=== PATIENT | male | born 1955 | race Caucasian/White ===

== ENCOUNTER 2022-02-24 08:11 | Emergency (ER) | payer MEDICARE, SELFPAY ==
[2022-02-24 08:18] VITALS: BP 143/90; PULSE 87; RESP 14; TEMP 36.6; O2SAT 95; BMI 33.9
--- NOTE | 2022-02-24 08:26 | XR_ITS ---
WS: [id number] Right ankle, 3 views, 02/24/2022 Clinical Data: fall Comparison: None. Findings: There is a bimalleolar fracture involving the medial and lateral malleolus. There is a lateral displa cement of the talus relative to the tibia. There is moderate soft tissue swelling over the malleolus. XR/XR ankle RT min 3V* [id number] Impression: Fractures of the medial and lateral malleolus of the right ankle.
--- NOTE | 2022-02-24 08:26 | XR_ITS ---
WS: [id number] Right leg including the tibia and fibula, AP and lateral views, 02/24/2022 Clinical Data: fall Comparison: None. Findings: There is a fracture of the distal right fibula. The right tibia is intact. The proximal right fibula is unremarkable. There is soft tissue swelling over the distal right fibular fracture. The visualized right knee is normal. XR/XR tibia fibula RT 2V [id number] Impression: Fracture distal right fibula.
--- NOTE | 2022-02-24 08:44 | W.ED.EXTPRO ---
HPI - Extremity Problem General: Chief complaint: Extremity Injury, Lower Stated complaint: fall,right leg pain Time Seen by Provider: 02/24/22 08:16 Source: patient Mode of arrival: wheelchair History of Present Illness: 67-year-old male presents emergency room after a fall at home he was walking his dog and slipped as he went down the stairs injury to the right ankle he has been able to be partial weightbearing since then he did not strike his head did not lose consciousness there is no other injuries reported. He does have some abrasions last tetanus shot was over 10 years ago MD Complaint: joint pain Onset (ago): minute(s) Pain Consistency: constant Location: right (Ankle) Quality: sharp Radiation: none Relieving factors: nothing Exacerbating factors: nothing Associated symptoms: Deny arthralgias, chest pain, fever(s), myalgias, rash or short of breath Review of Systems Const: Denies: fever(s), chills, fatigue or malaise ENMT: Denies: throat pain, ear or mastoid pain, nasal discharge or nasal congestion Card: Denies: chest pain Resp: Denies: dyspnea, productive cough, non-productive cough or wheezing GI: Denies: abdominal pain, nausea, vomiting, hematemesis, coffee ground emesis, diarrhea, constipation, bloating, hematochezia or melena : Denies: flank pain, dysuria, urinary frequency or urinary urgency Skin/Breast: Denies: rash PFSH ED PFSH: Medical History Diabetes Former smoker Hypertension Hypothyroidism Insomnia Surgical History H/O colonoscopy 2020 NORMAL Family History Brother , LIVER Cancer Mother Cancer OVARIAN Sister , LUNG METS TO BRAIN No problems noted. 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 Current gender identity: Male Physical Exam Const: COMMON NORMALS: no acute distress GENERAL APPEARANCE: cooperative and comfortable ORIENTATION/CONSCIOUSNESS: Yes awake, Yes oriented to person, Yes oriented to place and Yes oriented to time HENMT: COMMON NORMALS: normocephalic, atraumatic and hearing grossly normal bilaterally HEAD & SCALP: normocephalic and atraumatic Eye: COMMON NORMALS: Equal, round and reactive pupils present, EOMs intact bilaterally, conjunctivae normal and no scleral icterus CONJUNCTIVA: Yes conjunctivae normal PUPIL: Yes Equal, round and reactive pupils present Neck/C-Spine: COMMON NORMALS: full ROM Resp: COMMON NORMALS: normal respiratory effort, No retractions, No use of accessory muscles and clear to auscultation bilaterally AUSCULTATION: clear to auscultation bilaterally Cardio: COMMON NORMALS: regular rate, regular rhythm and No murmurs present (Cardio) RATE: regular rate RHYTHM: regular rhythm Extremity: OTHER: Abrasions on the right lower leg and ankle no full-thickness tears or lacerations. X-ray shows bimalleolar fracture and no evidence of compound fracture on clinical exam Neuro: SENSORIUM/ORIENTATION: Yes oriented to person, Yes oriented to place and Yes oriented to time Skin: COMMON NORMALS: no rashes or lesions noted GENERAL SKIN EXAM: no rashes or lesions noted Course Vital Signs: Vital signs: Vital Signs Temperature 97.8 F 02/24/22 08:18 Pulse Rate 87 02/24/22 08:18 Respiratory Rate 14 02/24/22 08:18 Blood Pressure 143/90 02/24/22 08:18 Pulse Oximetry 95 02/24/22 08:18 Oxygen Delivery Me thod 02/24/22 08:18 MDM - Extremity (Nontraumatic) Medical Decision Making Patient placed in a splint. He called Dr. Zavala who is on-call he advises to have the patient go directly to the orthopedic office and will see him there Medical Records I reviewed the patient's medical records. Lab Data I reviewed the patient's lab results. Radiology Impressions Ankle X-Ray 02/24/22 08:26 Impression: Fractures of the medial and lateral malleolus of the right ankle. Tibia/Fibula X-Ray 02/24/22 08:26 Impression: Fracture distal right fibula. Discharge Plan Discharge Patient Disposition: Home Clinical Impression: Bimalleolar avulsion fracture of right ankle Condition: Stable Prescriptions: New hydrocodone-acetaminophen 5-325 mg tablet 1 tab PO Q6H PRN (Reason: pain) Qty: 20 0RF No Action citalopram 40 mg tablet 60 mg PO DAILY glipizide 5 mg tablet 5 mg PO BID levothyroxine 75 mcg tablet 75 mcg PO DAILY pioglitazone 30 mg tablet 30 mg PO DAILY metoprolol tartrate 50 mg tablet 50 mg PO BID omeprazole 20 mg tablet,delayed release (DR/EC) 20 mg PO DAILY melatonin 10 mg capsule 10 mg PO .HS metformin 500 mg tablet extended release 24 hr 500 mg PO BID Qty: 60 3RF Discharge Orders: Discharge ED (Routine); Ordered 02/24/22 Ordered By: Blas Stewart Discharge Diet: Usual diet Discharge Activity: Limit activity as instructed Patient Instructions: Opioid Safety, Pain Management Activity Restrictions/Additional Instructions: You are seen today for ankle pain. You have a bimalleolar fracture of the right ankle. This will require attention from podiatry. Keep your right lower leg in the splint placed today until you are seen by podiatry. Nonweightbearing on the right leg and use crutches until released by podiatry. Elevate apply ice as needed for discomfort and use pain medication prescribed. Coding Level of Care Code ED Dump Motor Operator for Lucien Armstrong
[2022-02-24] MEDS: tetanus-dipt-pertussis 0.5 mL SDV IM (09:26)
--- NOTE | 2022-02-24 09:32 | PC.NURSE ---
Patient didn't want crutches. He stated that he had some at home.
== END 2022-02-24 10:25 | disposition home or self-care (01) ==
PROVIDERS: Emergency Provider Family Medicine
DX: S82.841A Displaced bimalleolar fracture of right lower leg, initial encounter for closed fracture (principal); E11.9 Type 2 diabetes mellitus without complications; Z79.84 Long term (current) use of oral hypoglycemic drugs; I10 Essential (primary) hypertension; Z87.891 Personal history of nicotine dependence; W10.8XXA Fall (on) (from) other stairs and steps, initial encounter; S82.831A Other fracture of upper and lower end of right fibula, initial encounter for closed fracture; Z23 Encounter for immunization
CPT/HCPCS: 29515; 73590; 73610; 90471; 90715; 99204; 99283

== ENCOUNTER 2022-03-02 07:58 | Day surgery (SDC) | payer MEDICARE, SELFPAY ==
[2022-03-01 14:59] VITALS: BMI 33.5
[2022-03-02] VITALS (14 sets, daily range): BP systolic 101–153; BP diastolic 69–118; PULSE 85–104; RESP 12–18; TEMP 37–37.2; O2SAT 90–100
[2022-03-02] MEDS: gabapentin 300 mg Capsule PO (08:40)
[2022-03-02] MEDS: CELEcoxib 200 mg Capsule 400 MG PO (08:40)
[2022-03-02 08:48] LABS: Glucose Point of Care 351 mg/dL (70-110)
[2022-03-02] MEDS: sodium chloride 0.9% 1,000 ML 30 ML IV (08:52)
[2022-03-02] MEDS: insulin regular-human 100 units/1 mL 10 UNIT IVP (09:06)
--- NOTE | 2022-03-02 09:23 | ANES.PREANE2 ---
Pre-Anesthetic Assessment Height/Weight: Height 1.73 m Weight 100.244 kg Temp Pulse Resp BP Pulse Ox O2 Del Method 98.6 F 94 14 153/118 91 03/02/22 08:35 03/02/22 08:35 03/02/22 08:35 03/02/22 08:35 03/02/22 08:35 03/02/22 08:35 Preop Diagnosis: Right ankle bimalleolar fracture Operation Date: 03/02/22 10:25 Proposed Procedures p Right bimalleolar ankle fracture ORIF CPT 64689 S82.841A(Right) - Demarcus Negron DPM Familial anesthetic complications: None Was Beta Connor taken within 24 hours: N/A Was Clonidine taken within 24 hours: N/A Last intake: Intake Last Liquid Date 03/01/22 Last Liquid Time 23:00 Last Solid Date 03/01/22 Last Solid Time 18:00 Social No alcohol and No tobacco Exam alert, oriented x 3, clear to auscultation bilaterally and regular rate & rhythm Airway Mallampati: Class III Dentition: full CV/HEM Hypertension GI Gastroesophageal Reflux Disease Metabolic Diabetes Mellitus and Thyroid Disease Anesthetic Plan ASA status: 3 Anesthesia: General and Regional (specify below) Risk of > 500 ml blood loss (7ml/kg in children): No Medications/Allergies Home Medications Medication Instructions Recorded Confirmed Last Taken Type citalopram 40 mg tablet 60 mg PO DAILY 02/16/22 03/02/22 03/01/22 History glipizide 5 mg tablet 5 mg PO BID 02/16/22 03/02/22 03/01/22 History levothyroxine 75 mcg tablet 75 mcg PO DAILY 02/16/22 03/02/22 03/01/22 History melatonin 10 mg capsule 10 mg PO .HS 02/16/22 03/02/22 03/01/22 History metformin 500 mg tablet,extended 500 mg PO BID #60 tabs 02/16/22 03/02/22 03/01/22 08:00 Rx release 24 hr metoprolol tartrate 50 mg tablet 50 mg PO BID 02/16/22 03/02/22 03/01/22 History omeprazole 20 mg tablet,delayed 20 mg PO DAILY 02/16/22 03/02/22 03/01/22 History release pioglitazone 30 mg tablet 30 mg PO DAILY 02/16/22 03/02/2222 History hydrocodone 5 mg-acetaminophen 325 1 tab PO Q6H PRN pain #20 tabs 02/24/22 03/02/22 03/01/22 Rx mg tablet hydrocodone 5 mg-acetaminophen 325 1 tab PO Q6H PRN pain 7 days #28 03/02/22 Unknown Rx mg tablet tabs Allergies Allergy/AdvReac Type Severity Reaction Status Date / Time codeine Allergy ADR-Abdominal Verified 03/02/22 08:30 Pain Current Medications Generic Name Dose Route Start Last Admin Trade Name Freq PRN Reason Stop Dose Admin Sodium Chloride 1,000 mls @ 30 mls/hr 03/02/22 08:15 03/02/22 08:52 Sodium Chloride 0.9% IV 03/03/22 08:14 30 mls/hr .Q24H DAFNE Administration PFSH Anesthesia Medical History Diabetes Former smoker Hypertension Hypothyroidism Insomnia Surgical History H/O colonoscopy 2020 NORMAL Family History Brother , LIVER Cancer Mother Cancer OVARIAN Sister , LUNG METS TO BRAIN No problems noted. 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
--- NOTE | 2022-03-02 09:24 | ANES.PROC ---
Anesthesia Procedures Procedure/Date: 03/02/22 Nerve Block ^: Nerve Block 1: Main Anesthesia: general anesthesia Time Out Performed: Yes Consent: requested by attending/covering physician, from patient, from other, risks and benefits reviewed and patient agrees to proceed Nerve block location: adductor canal (R) and popliteal (R) Anesthesia monitors applied: pulse oximetry, EKG, BP cuff and oxygen Nerve block position: supine Anesthetic Used: ropivicaine 0.5% (30 ml (20 ml popliteal, 10 ml adductor)) and with decadron (4 mg (3 mg popliteal, 1 mg adductor)) Ultrasound used to: recognize landmarks and visualize and ID femerol nerve Nerve Stimulator Used?: No Interscalene/Femoral BLK: 4 stimuplex 21 g needle used for position and inplane approach, visualize local anesthetic spread and no vascular puncture identified Injection: neg aspiration of heme Patient Tolerated Procedure: well Complications: none
[2022-03-02 10:15] LABS: Glucose Point of Care 230 mg/dL (70-110)
--- NOTE | 2022-03-02 10:33 | W.PM.OPSUD ---
Surgery/Procedure H&P Update DATE OF PROCEDURE: March 02, 2022 DATE H&P PERFORMED: 02/24/22 CHANGES TO PREVIOUS DOCUMENTATION: no changes PREOP DIAGNOSIS: Right ankle bimalleolar fracture PLANNED PROCEDURE: Operation Date: 03/02/22 10:25 Proposed Procedures p Right bimalleolar ankle fracture ORIF CPT 48318 S82.841A(Right) - Demarcus Negron DPM
[2022-03-02] MEDS: insulin regular-human 100 units/1 mL 5 UNIT IVP ×2 (10:35→12:40)
[2022-03-02] MEDS: ceFAZolin 2,000 MG in sodium chloride 0.9% (plus) 50 ML 100 MG IV (10:38)
--- NOTE | 2022-03-02 12:22 | P.OP_ITS ---
Operative Report Date of procedure: March 02, 2022 Pre-op diagnosis: Preop Diagnosis Right ankle bimalleolar fracture Post-op diagnosis: Same Post-op findings: Right ankle bimalleolar ankle fracture with Guerrier B and Briggs C with syndesmosis intact postoperatively Procedure done: ORIF right ankle bimalleolar fracture CPT 81470 Implants: Anatomical fibular plate with corresponding locking 3.5 mm locking screws, 1 nonlocking 3.5 millimeter screw two 4.0 cannulated short thread headed screws from [employer] Surgeon: Dr. Demarcus Negron, D.P.MShelley Estimated blood loss: Less than 20 cc 72 minutes Complications: None Findings: See above Procedure: Patient is a 67-year-old male that has a history of right ankle bimalleolar fracture. The extent of the injury requires open reduction internal fixation and this discussion was had with the patient. A lengthy discussion regarding the procedure, including risks and complications has been had with the patient and is noted in the recent clinic note. Written and verbal consent have been obtained. All patient questions have been answered to the patient?s satisfact ion. No written or verbal guarantees have been given or implied. The patient has been NPO since midnight. The history has been reviewed and the history and physical is current. The signed consent was confirmed and placed in the patient chart. Patient imaging has been reviewed and is consistent with the diagnosis. Under mild sedation, the patient was brought into the operating room and placed on the table in the supine position. IV antibiotics were given by the anesthesia team as preoperative surgical prophylaxis. General sedation was then performed by the anesthesiateam. A popliteal block was performed by the anesthesia team preoperatively. A pneumatic tourniquet was then placed about the right thigh. The operative extremity was then prepped and draped in the usual fashion. The extremity was then elevated and exsanguinated before the tourniquet was inflated to 300 mmHg. After inflation, the following procedure was then performed. Attention was directed to the lateral aspect of the right ankle where a 10 cm incision was made directly over the fibula. Dissection was carried down through subcutaneous and superficial fascia to the level of the fibula. Dissection was carried out to expose the oblique fracture through the fibula at the level of the ankle joint. A curette and dental pick was used to evacuate hematoma from the fracture line. Next, a drihy-uj-xjtjo reduction clamp was used to reduce the ankle fracture. This positioning was confirmed on C-arm imaging. Next a drill for 3.5 solid headed screw was used to drill the interfrag screw. A 3.5 headed screw was then inserted across the fracture line. Good positioning of the screw was noted on C-arm imaging as well as clinically. Next an anatomical fibular plate was placed on the lateral aspect of the fibula. Good positioning of the plate was noted. It was then fixated to the fibula using 3.5 locking screws Attention was then directed to the medial malleolus where an 8 cm incision was made over the medial malleolus. Dissection was carried out the subcutaneous superficial fascia to the level of the medial malleolus fracture. The hematoma of the fracture line was evacuated using curette and dental pick. Next, the medial malleolus was reduced using a fghah-nh-bruqw reduction clamp. 2 guidewires for 4.0 cannulated screws were inserted across the fracture line before two 4.0 x 40 mm short threaded cannulated headed screws were inserted over the wire and across fracture site. Good positioning of the screws and plates were noted on C-arm imaging. Good reduction of the lateral medial malleolus fractures was noted. Attention was then directed to closure. Deep tissue was closed with 2-0 Vicryl followed by subcuticular closure with 3-0 Vicryl and skin closure with skin jarrell. Incisions were dressed with Xeroform, 4 x 4 gauze, Kerlix before being placed in a well-padded below the knee posterior splint. The tourniquet was let down good hyperemic response was noted to all digits of the right foot. The patient tolerated the procedure and anesthesia well and without complication. The patient was transported from the operating room to the recovery room with vital signs stable and vascular status intact to all digits of the right foot. The patient was given both written and verbal instructions to remain nonweightbearing to the operative extremity, to keep dressings/splint clean, dry and intact and to take pain medication as directed. The patient will follow-up in the outpatient setting at their scheduled appointment. The patient was discharged with my personal number and was instructed to call if any questions or issues should arise. They were discharged home once anesthesia criteria was met.
--- NOTE | 2022-03-02 12:28 | XRR_ITS ---
PROCEDURE INFORMATION: Exam: XR Right Ankle Exam date and time: 03/02/2022 12:35 PM Age: 67 years old Clinical indication: Device placement; Joint fixation hardware; Prior surgery; Surgery date: Post-operative (0-2 days); Additional info: Post op, 3 views right ankle portable for post op. Thank you TECHNIQUE: Imaging protocol: Radiologic exam of the Right ankle. Views: 3 or more views. COMPARISON: CR XR ankle RT min 3V* [id number] 02/24/2022 8:40 AM FINDINGS: Bones/joints: Patient has undergone ORIF of bimalleolar fracture. Fracture of the distal fibula stabilized by cortical plate and multiple threaded screws while the medial malleolar fracture stabilized by 2 cancellous screws. Fracture components appear in good alignment and apposition. Remainder of visualized osseous structures are unremarkable but obscured by overlying plaster cast. Soft tissues: Unremarkable. XR/XR ankle RT min 3V* [id number] IMPRESSION: Internally fixed fractures of the distal fibula and medial malleolus in good alignment.
--- NOTE | 2022-03-02 12:28 | SUR.PHASEI ---
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 1225 ORDER FOR IV INSULIN PLACED. PT STILL RESTING QUIETLY VSS. ID BRACELET TO LT WRIST , PT ID'D WITH 2 IDENTIFIERS.
[2022-03-02 12:31] LABS: Glucose Point of Care 203 mg/dL (70-110)
[2022-03-02 12:31] LABS: Glucose Point of Care 236 mg/dL (70-110)
--- NOTE | 2022-03-02 12:46 | SUR.PHASEI ---
SEE REGULAR HUMAN INSULIN 5 UNITS GIVEN IVP ORDERED, IV FLUSHED WELL , PT AWAKES TO TOUCH, OPENS EYES BUT DOES NOT VERBALIZE, VSS MONITOR UNCHNAGED PT ON RA TRIAL, DRESSINGS TO RT FOOT UNCHANGED.
[2022-03-02 13:38] LABS: Glucose Point of Care 214 mg/dL (70-110)
--- NOTE | 2022-03-02 14:14 | ANE.PACU2 ---
Inpatient post-anesthesia follow up: Airway intact: Yes Vital signs: Temperature 98.8 F Pulse Rate 104 Respiratory Rate 16 Blood Pressure 115/76 Pulse Oximetry 92 Oxygen Delivery Me thod Room Air Oxygen Flow Rate 8 Fraction of Inspir ed Oxygen Hydration adequate: Yes Nausea and vomiting: No Pain level: 1 Mental status: Baseline
== END 2022-03-02 13:55 | disposition home or self-care (01) ==
PROVIDERS: PCP Family Medicine; Visit Provider Podiatrist Foot & Ankle Surgery
PROC: (CPT 27814; principal; 2022-03-02 10:25)
DX: S82.841A Displaced bimalleolar fracture of right lower leg, initial encounter for closed fracture (principal); X58.XXXA Exposure to other specified factors, initial encounter; K21.9 Gastro-esophageal reflux disease without esophagitis; E11.9 Type 2 diabetes mellitus without complications; Z87.891 Personal history of nicotine dependence; I10 Essential (primary) hypertension; E03.9 Hypothyroidism, unspecified
CPT/HCPCS: 27814; 36416; 73610; 76000; 82962; C1713; J0690; J1100; J1815; J2250; J2405; J2704; J2795; J3010; J7030

== ENCOUNTER → 2022-03-17 08:03 | Outpatient (BNVA) | payer MEDICARE, SELFPAY | PROVIDERS: PCP Family Medicine; Visit Provider Podiatrist Foot & Ankle Surgery | DX: Z98.890 Other specified postprocedural states (principal); S82.841A Displaced bimalleolar fracture of right lower leg, initial encounter for closed fracture; X58.XXXA Exposure to other specified factors, initial encounter; E11.9 Type 2 diabetes mellitus without complications | CPT/HCPCS: 73610; 99024 ==

== ENCOUNTER 2022-03-31 06:00 | Outpatient (CLI) | payer MEDICARE, SELFPAY | END 2022-03-31 06:01 | LOC: SPT 04-11 15:49 | PROVIDERS: PCP Family Medicine; Visit Provider Podiatrist Foot & Ankle Surgery | DX: Z98.890 Other specified postprocedural states (principal); S82.841A Displaced bimalleolar fracture of right lower leg, initial encounter for closed fracture; X58.XXXA Exposure to other specified factors, initial encounter; E11.9 Type 2 diabetes mellitus without complications; Z79.84 Long term (current) use of oral hypoglycemic drugs | CPT/HCPCS: 97760; 99024; L4361 ==

== ENCOUNTER → 2022-03-31 13:46 | Outpatient (BNVA) | payer MEDICARE, SELFPAY | PROVIDERS: PCP Family Medicine; Visit Provider Podiatrist Foot & Ankle Surgery | DX: Z98.890 Other specified postprocedural states (principal); S82.841A Displaced bimalleolar fracture of right lower leg, initial encounter for closed fracture; X58.XXXA Exposure to other specified factors, initial encounter; E11.9 Type 2 diabetes mellitus without complications; Z79.84 Long term (current) use of oral hypoglycemic drugs | CPT/HCPCS: 73610 ==

== ENCOUNTER → 2022-04-04 12:19 | Outpatient (BNVA) | payer MEDICARE, SELFPAY | PROVIDERS: PCP Family Medicine; Visit Provider Family Medicine | DX: I10 Essential (primary) hypertension (principal); E11.9 Type 2 diabetes mellitus without complications; E03.9 Hypothyroidism, unspecified; G47.00 Insomnia, unspecified | CPT/HCPCS: 80053; 80061; 83036; 84443; 85025 ==

== ENCOUNTER → 2022-04-14 13:44 | Outpatient (BNVA) | payer MEDICARE, SELFPAY | PROVIDERS: PCP Family Medicine; Visit Provider Podiatrist Foot & Ankle Surgery | DX: Z98.890 Other specified postprocedural states (principal); S82.841A Displaced bimalleolar fracture of right lower leg, initial encounter for closed fracture; X58.XXXA Exposure to other specified factors, initial encounter; E11.9 Type 2 diabetes mellitus without complications; Z79.84 Long term (current) use of oral hypoglycemic drugs | CPT/HCPCS: 73610; 99024 ==

== ENCOUNTER → 2022-05-05 13:11 | Outpatient (BNVA) | payer MEDICARE, SELFPAY | PROVIDERS: PCP Family Medicine; Visit Provider Podiatrist Foot & Ankle Surgery | DX: Z98.890 Other specified postprocedural states; E11.9 Type 2 diabetes mellitus without complications; Z79.84 Long term (current) use of oral hypoglycemic drugs; X58.XXXA Exposure to other specified factors, initial encounter; S82.841A Displaced bimalleolar fracture of right lower leg, initial encounter for closed fracture | CPT/HCPCS: 73610; 99024 ==

== ENCOUNTER 2022-05-17 06:00 | Outpatient (RCR) | payer MEDICARE, SELFPAY | END 2022-06-16 23:59 | disposition home or self-care (01) | LOC: TPT 06:00 | PROVIDERS: PCP Family Medicine; Visit Provider Podiatrist Foot & Ankle Surgery | DX: S82.844D Nondisplaced bimalleolar fracture of right lower leg, subsequent encounter for closed fracture with routine healing (principal); X58.XXXD Exposure to other specified factors, subsequent encounter | CPT/HCPCS: 97110; 97140; 97162 ==

== ENCOUNTER 2022-05-17 15:57 | Inpatient (IN) | payer MEDICARE, SELFPAY ==
[2022-05-17] VITALS (15 sets, daily range): BP systolic 149–178; BP diastolic 84–119; PULSE 70–89; RESP 17–25; TEMP 36.6–36.9; O2SAT 81–99; BMI 37.7
--- NOTE | 2022-05-17 16:09 | ECG_ITS ---
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 Measurements Intervals Hillman Rate: 78 P: 57 ND: 168 QRS: 4 QRSD: 85 T: 26 QT: 381 QTc: 436 Interpretive Statements SINUS RHYTHM POSSIBLE LEFT ATRIAL ENLARGEMENT [-0.1mV P-WAVE IN V1/V2] LOW QRS VOLTAGE IN PRECORDIAL LEADS [QRS DEFLECTION < 1.0 mV IN CHEST LEADS] No previous ECG available for comparison Electronically Signed On 05-17-2022 16:15:20 UX CONSULTANT by Neil David M.D. [id number]
--- NOTE | 2022-05-17 16:14 | W.ED.SOB ---
HPI - SOB/Dyspnea General: Chief Complaint: Shortness of Breath/Dyspnea Stated Complaint: SOB, Swelling all over Time Seen by Provider: 05/17/22 16:14 History of Present Illness: HPI Narrative: Mr Petty is a 67-year-old gentleman with history of hypertension, diabetes, thyroid disorder presenting to the emergency department for concern over shortness of breath and volume overload. He reports a few week history now of marked progression of lower extremity and central edema as well as dyspnea with dyspnea on exertion. Patient denies underlying lung disease and has no baseline oxygen requirement however he is hypoxemic in the mid 70s after desatting from mid 80s with exertion. Intensity symptoms is moderate to severe. No other specific changes in health, exacerbating, or alleviating factors identified. Onset (ago): week(s) Timing: progressively worsening Severity: severe Exacerbating factors: exertion Relieving factors: nothing Associated symptoms: Reports orthopnea and other Review of Systems General: Reports: 10 or more systems reviewed and unremarkable except in HPI and below Card: Reports: orthopnea PFSH ED PFSH: Medical History Diabetes Former smoker Hypertension Hypothyroidism Insomnia Surgical History H/O colonoscopy 2020 NORMAL Family History Brother , LIVER Cancer Mother Cancer OVARIAN Sister , LUNG METS TO BRAIN No problems noted. 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 Current gender identity: Male Physical Exam Const: COMMON NORMALS: alert GENERAL APPEARANCE: cooperative and well developed HENMT: COMMON NORMALS: normocephalic and atraumatic HEAD & SCALP: normocephalic and atraumatic THROAT: posterior oropharynx normal Eye: COMMON NORMALS: conjunctivae normal CONJUNCTIVA: Yes conjunctivae normal SCLERA: sclerae normal Neck/C-Spine: COMMON NORMALS: supple GENERAL: Yes trachea midline Resp: EFFORT & INSPECTION: Yes tachypneic AUSCULTATION: crackles Cardio: COMMON NORMALS: regular rate and regular rhythm RATE: regular rate RHYTHM: regular rhythm GI: COMMON NORMALS: Soft to palpation PALPATION: Yes Soft to palpation, Yes Tenderness to palpation present (GI), No Guarding due to palpation present (GI) and No Rigid due to palpation PERCUSSION: normal to percussion Extremity: GENERAL: Yes normal exam except as noted and Yes edema Neuro: COMMON NORMALS: moves all extremities SENSORIUM/ORIENTATION: Yes alert and No Orientation impaired Psych: COMMON NORMALS: mental status grossly normal and Normal thought process present THOUGHT PROCESS: Normal thought process present Course Vital Signs: Vital signs: Vital Signs Temperature 97.5 F L 05/20/22 15:14 Pulse Rate 66 05/20/22 15:14 Respiratory Rate 15 05/20/22 15:14 Blood Pressure 107/68 05/20/22 15:14 Pulse Oximetry 92 05/20/22 15:14 Oxygen Delivery Me thod 05/20/22 08:00 Oxygen Flow Rate 3 05/20/22 13:20 MDM - SOB/Dyspnea Medical Decision Making 67-year-old gentleman presenting with hypoxemia on room air and evidence of volume overload. EKG notable for sinus rhythm with normal axis and intervals, nonspecific ST segment abnormalities, no STEMI. Labs with no leukocytosis, mild thrombocytopenia. Metabolic panel with hypercapnic respiratory failure. No significant electrolyte derangement. Negative range 2-hour delta troponin. Negative viral panel. Chest x-ray with no lobar consolidation or pneumothorax. Given unimpressive appearance with clinical exam CT imaging is appropriate. CT demonstrates trace pleural effusion and pericardial effusion. There is subcutaneous edema. Incidental findings noted. Most likely etiology of symptoms is heart failure with acute respiratory failure with hypoxia and hypercapnia. The results of ED evaluation were discussed with the patient including plan for admission due to requirement for level of care not available if discharged to prevent significant worsening/deterioration. Patient agreeable with plan. Discussed with hospitalist service who was agreeable to admit patient. Medical Records I reviewed the patient's medical records. Lab Data I reviewed the patient's lab results. 05/17/22 16:28 05/17/22 16:28 Labs/Radiology: Radiology Impressions Chest X-Ray 05/17/22 16:24 IMPRESSION: No acute findings. Chest/Abdomen/Pelvis CT 05/17/22 17:22 IMPRESSION: 1. Trace left pleural effusion with atelectasis at the posterior left lung base. 2. Trace pericardial effusion. IMPRESSION: 1. No acute intra-abdominal findings. 2. Subcutaneous edema noted in the bilateral flank regions. 3. Additional findings described in the body of the report. COMMENTS: Consistent with the [employer]'s Incidental Findings Committee white paper (J Am Marian Radiol 2018): Any incidental renal lesion less than 1 cm or classified as too small to characterize, or any incidental cystic renal lesion characterized as simple-appearing, is likely benign. No follow-up imaging is recommended for these lesions per consensus recommendations based on imaging criteria. Laboratory Results WBC 4.1 10^3/uL (4.0-10.0) 05/17/22 16:28 RBC 5.55 10^6/uL (4.1-5.3) H 05/17/22 16:28 Hgb 15.6 g/dL (11.7-16.6) 05/17/22 16:28 Hct 50.4 % (42.0-52.0) 05/17/22 16:28 MCV 90.8 fl (80-94) 05/17/22 16:28 MCH 28.1 pg (28.0-34.0) 05/17/22 16:28 MCHC 31.0 g/dL (30.0-36.0) 05/17/22 16:28 RDW 14.0 % (12.1-15.1) 05/17/22 16:28 Plt Count 125 10^3/cmm (130-400) L 05/17/22 16:28 MPV 12.0 fL (7.4-10.4) H 05/17/22 16:28 Neut % (Auto) 64.6 % 05/17/22 16:28 Lymph % (Auto) 19.8 % 05/17/22 16:28 Mills % (Auto) 10.0 % 05/17/22 16:28 Eos % (Auto) 4.6 % 05/17/22 16:28 Baso % (Auto) 0.5 % 05/17/22 16:28 Neut # (Auto) 2.64 10^3/uL (1.8-7.7) 05/17/22 16:28 Lymph # (Auto) 0.8 10^3/uL (0.8-4.8) 05/17/22 16:28 Mills # (Auto) 0.4 10^3/uL (0.2-0.9) 05/17/22 16:28 Eos # (Auto) 0.2 10^3/uL (0.0-0.8) 05/17/22 16:28 Baso # (Auto) 0.0 10^3/uL (0.0-0.1) 05/17/22 16:28 Nucleated RBC % (auto) 0 % 05/17/22 16:28 Nucleated RBCs # 0.0 /100WBC 05/17/22 16:28 D-Dimer 0.77 ug/mIFEU (0-0.59) H 05/17/22 16:28 Specimen Type Arterial 05/17/22 17:21 Sample Site Radial, right 05/17/22 17:21 ABG pH 7.33 (7.35-7.45) L 05/17/22 17:21 ABG pCO2 68.5 mmHg (35-45) H* 05/17/22 17:21 ABG pO2 120.0 mmHg (80.0-100.0) H 05/17/22 17:21 ABG HCO3 35.8 mmol/L (22-26) H 05/17/22 17:21 ABG Base Excess 6.9 mmol/L (-2.0-2.0) H 05/17/22 17:21 Femi Test Pos 05/17/22 17:21 Hematocrit 46.9 % (42-52) 05/17/22 17:21 Hgb O2 Saturation 97.1 % (95-100) 05/17/22 17:21 Carboxyhemoglobin 1.8 %THgb (0.4-20.1) 05/17/22 17:21 Methemoglobin 0.3 % (0.4-1.5) L 05/17/22 17:21 Total Hemoglobin 15.3 g/dL (14-18) 05/17/22 17:21 O2 Delivery Device Nc 05/17/22 17:21 O2 Liters/Min 4.5 % 05/17/22 17:21 FiO2 42.0 % 05/17/22 17:21 Entry Level Account Executive ID Monro 05/17/22 17:21 Sodium 137 mmol/L (136-145) 05/17/22 16:28 Potassium 4.6 mmol/L (3.5-5.1) 05/17/22 16:28 Chloride 93 mmol/L (98-107) L 05/17/22 16:28 Carbon Dioxide 35 mmol/L (22-29) H 05/17/22 16:28 Anion Gap 13.6 (5-19) 05/17/22 16:28 BUN 14 mg/dL (8-23) 05/17/22 16:28 Creatinine 0.9 mg/dL (0.7-1.2) 05/17/22 16:28 GFR Calculation 83.9 mL/min (90-130) L 05/17/22 16:28 Glucose 264 mg/dL (65-115) H 05/17/22 16:28 Calculated Osmolality 294 mOsm/kg (285-295) 05/17/22 16:28 Lactic Acid 1.5 mmol/L (0.5-2.2) 05/17/22 16:28 Calcium 8.4 mg/dL (8.5-10.5) L 05/17/22 16:28 Magnesium 1.6 mg/dL (1.7-2.3) L 05/17/22 16:28 Total Bilirubin 0.7 mg/dL (0.15-1.2) 05/17/22 16:28 AST 22 U/L (0-40) 05/17/22 16:28 ALT 23 U/L (0-41) 05/17/22 16:28 Alkaline Phosphatase 52 U/L (40-130) 05/17/22 16:28 Troponin T Baseline 24 ng/L (0-15) H 05/17/22 16:28 Troponin T 120 Minute 21.44 ng/L (0-15) H 05/17/22 19:34 Delta Troponin T -2.56 ABS# (0-10) L 05/17/22 19:34 NT-Pro-B Natriuret Pep 1949 pg/mL (0-125) H 05/17/22 16:28 Total Protein 6.4 g/dL (6.6-8.7) L 05/17/22 16:28 Albumin 3.9 g/dL (3.5-5.2) 05/17/22 16:28 Globulin 2.5 g/dL (1.3-4.6) 05/17/22 16:28 TSH 3.85 uIU/mL (0.27-4.20) 05/17/22 16:28 Urine Color Yellow (Yellow) 05/17/22 18:15 Urine Appearance Clear (CLEAR) 05/17/22 18:15 Urine pH 6.5 (5-7) 05/17/22 18:15 Ur Specific Parker 1.015 (1.005-1.030) 05/17/22 18:15 Urine Protein Neg (Negative) 05/17/22 18:15 Urine Glucose (UA) 2+ (Normal) H 05/17/22 18:15 Urine Ketones 1+ (Negative) H 05/17/22 18:15 Urine Blood Neg (Negative) 05/17/22 18:15 Urine Nitrate Negative (Negative) 05/17/22 18:15 Urine Bilirubin Neg (Negative) 05/17/22 18:15 Urine Urobilinogen 4 mg/dL (Negative) H 05/17/22 18:15 Ur Leukocyte Esterase Negative (Negative) 05/17/22 18:15 Coronavirus 229E (PCR) Not detected (NOT DETECT) 05/17/22 16:38 SARS-CoV-2 (PCR) Not detected (NOT DETECT) 05/17/22 16:38 Discharge Plan Discharge Patient Disposition: Admitted As Inpatient Admit Provider: Kelvin Smith Clinical Impression: Acute respiratory failure with hypoxia and hypercapnia, Edema, peripheral, Symptom of congestive heart failure Condition: Stable Discharge Diet: Cardiac and Diabetic Discharge Activity: Increase activity as tolerated and Oxygen as instructed Coding Level of Care Code ED Poly Operator for Lucien Armstrong
--- NOTE | 2022-05-17 16:24 | XRR_ITS ---
PROCEDURE INFORMATION: Exam: XR Chest Exam date and time: 05/17/2022 4:39 PM Age: 67 years old Clinical indication: Shortness of breath; Additional info: SOB TECHNIQUE: Imaging protocol: Radiologic exam of the chest. Views: 1 view. COMPARISON: No relevant prior studies available. FINDINGS: Lungs: Unremarkable. No consolidation. Pleural spaces: Unremarkable. No pleural effusion. No pneumothorax. Heart/Mediastinum: Unremarkable. No cardiomegaly. Bones/joints: Unremarkable. XR/XR chest 1V portable [id number] IMPRESSION: No acute findings.
[2022-05-17 16:41] LABS: Basophils % 0.5 %; Eosinophils # 0.2 10^3/uL (0.0-0.8); Eosinophils % 4.6 %; Hematocrit 50.4 % (42.0-52.0); Hemoglobin 15.6 g/dL (11.7-16.6); Lymphocytes # 0.8 10^3/uL (0.8-4.8); Lymphocytes % 19.8 %; Mean Corpuscular Hemoglobin 28.1 pg (28.0-34.0); Mean Corpuscular Volume 90.8 fl (80-94); Monocytes # 0.4 10^3/uL (0.2-0.9); Neutrophils # 2.64 10^3/uL (1.8-7.7); Neutrophils % 64.6 %; Nucleated Red Blood Cells % 0 %; Platelet Count 125 10^3/cmm (130-400); Red Blood Count 5.55 10^6/uL (4.1-5.3); White Blood Count 4.1 10^3/uL (4.0-10.0)
[2022-05-17 17:01] LABS: Lactic Sepsis W/Reflex 1.5 mmol/L (0.5-2.2)
[2022-05-17 17:02] LABS: Alanine Aminotransferase 23 U/L (0-41); Albumin Level 3.9 g/dL (3.5-5.2); Alkaline Phosphatase 52 U/L (40-130); Aspartate Amino Transferase 22 U/L (0-40); Blood Urea Nitrogen 14 mg/dL (8-23); Calcium 8.4 mg/dL (8.5-10.5); Carbon Dioxide 35 mmol/L (22-29); Globulin 2.5 g/dL (1.3-4.6); Glomerular Filtration Rate 83.9 mL/min (90-130); Glucose 264 mg/dL (65-115); Magnesium 1.6 mg/dL (1.7-2.3); Total Bilirubin 0.7 mg/dL (0.15-1.2); Total Protein 6.4 g/dL (6.6-8.7)
[2022-05-17 17:19] LABS: D Dimer 0.77 ug/mIFEU (0-0.59)
[2022-05-17 17:20] LABS: Potassium 4.6 mmol/L (3.5-5.1)
--- NOTE | 2022-05-17 17:22 | CTR_ITS ---
PROCEDURE INFORMATION: Exam: CTA Chest With Contrast Exam date and time: 05/17/2022 7:49 PM Age: 67 years old Clinical indication: Bloating; Dyspnea; Additional info: New o2 req, volume overload, abd swelling TECHNIQUE: Imaging protocol: Computed tomographic angiography of the chest with contrast. 3D rendering (Not supervised by radiologist): MIP and/or 3D reconstructed images were created by the technologist. Radiation optimization: All CT scans at this facility use at least one of these dose optimization techniques: automated exposure control; mA and/or kV adjustment per patient size (includes targeted exams where dose is matched to clinical indication); or iterative reconstruction. Contrast material: OMNIPAQUE 350; Contrast volume: 95 ml; Contrast route: INTRAVENOUS (IV); REPORTING DATA: Count of CT and Cardiac NM exams in prior 12 months: This patient has received 0 known CTs and 0 known cardiac nuclear medicine studies in the 12 months prior to the current study. COMPARISON: CR XR chest 1V portable [id number] 05/17/2022 4:39 PM RADIATION DOSE METRICS: Total DLP (mGy-cm): 1761.88 FINDINGS: Pulmonary arteries: Normal. No pulmonary emboli. Aorta: No aortic aneurysm. No aortic dissection. Lungs: Atelectasis at the posterior left lung base. No consolidation. No masses. Pleural spaces: Trace left pleural effusion. No pneumothorax. Heart: No cardiomegaly. Trace pericardial effusion. Lymph nodes: No enlarged lymph nodes. Bones/joints: No acute fracture. Soft tissues: Unremarkable. PROCEDURE INFORMATION: Exam: CT Abdomen And Pelvis With Contrast Exam date and time: 05/17/2022 7:49 PM Age: 67 years old Clinical indication: Bloating; Dyspnea; Additional info: New o2 req, volume overload, abd swelling TECHNIQUE: Imaging protocol: Computed tomography of the abdomen and pelvis with contrast. Radiation optimization: All CT scans at this facility use at least one of these dose optimization techniques: automated exposure control; mA and/or kV adjustment per patient size (includes targeted exams where dose is matched to clinical indication); or iterative reconstruction. Contrast material: OMNIPAQUE 350; Contrast volume: 95 ml; Contrast route: INTRAVENOUS (IV); REPORTING DATA: Count of CT and Cardiac NM exams in prior 12 months: This patient has received 0 known CTs and 0 known cardiac nuclear medicine studies in the 12 months prior to the current study. COMPARISON: CR XR chest 1V portable [id number] 05/17/2022 4:39 PM RADIATION DOSE METRICS: Total DLP (mGy-cm): 1761.88 FINDINGS: Liver: Normal. No mass. Gallbladder and bile ducts: Normal. No calcified stones. No ductal dilation. Pancreas: Normal. No ductal dilation. Spleen: Normal. No splenomegaly. Adrenal glands: Normal. No mass. Kidneys and ureters: Subcentimeter cyst noted in the left kidney. No hydronephrosis. Stomach and bowel: Unremarkable. No obstruction. No mucosal thickening. Appendix: No evidence of appendicitis. Intraperitoneal space: No free air. No significant fluid collection. Vasculature: No abdominal aortic aneurysm. Lymph nodes: No enlarged lymph nodes. Urinary bladder: Unremarkable as visualized. Reproductive: Trace right hydrocele noted. Bones/joints: No acute fracture. Soft tissues: Moderate-sized fat containing left inguinal hernia with focal fluid noted within the hernia. Subcutaneous edema noted in the bilateral flank regions. CT/CT angio chest w abd pel w con IMPRESSION: 1. Trace left pleural effusion with atelectasis at the posterior left lung base. 2. Trace pericardial effusion. IMPRESSION: 1. No acute intra-abdominal findings. 2. Subcutaneous edema noted in the bilateral flank regions. 3. Additional findings described in the body of the report. COMMENTS: Consistent with the [employer]'s Incidental Findings Committee white paper (J Am Marian Radiol 2018): Any incidental renal lesion less than 1 cm or classified as too small to characterize, or any incidental cystic renal lesion characterized as simple-appearing, is likely benign. No follow-up imaging is recommended for these lesions per consensus recommendations based on imaging criteria.
[2022-05-17 17:33] LABS: ABG PH Result 7.33 (7.35-7.45); Arterial Blood Gas Hematocrit 46.9 % (42-52); Base Excess ABG 6.9 mmol/L (-2.0-2.0); Blood Gas Allen Test Pos; Blood Gas LPM 4.5 %; Blood Gas Operator Identificat MONRO; Blood Gas Sample Site Radial, right; Blood Gas Sample Type Arterial; Carboxyhemoglobin 1.8 %THgb (0.4-20.1); HCO3 ABG 35.8 mmol/L (22-26); HGB O2 Sat 97.1 % (95-100); Methemoglobin 0.3 % (0.4-1.5); Oxygen Device NC; Total Hemoglobin 15.3 g/dL (14-18)
[2022-05-17 17:33] LABS: NT Pro B Type Natriuretic Pept 1949 pg/mL (0-125)
[2022-05-17 17:34] LABS: Troponin(5th) Baseline 24 ng/L (0-15)
[2022-05-17 17:35] LABS: Anion Gap 13.6 (5-19); Chloride 93 mmol/L (98-107); Osmolality Calculated 294 mOsm/kg (285-295); Sodium 137 mmol/L (136-145)
[2022-05-17 17:43] LABS: ABG PCO2 68.5 mmHg (35-45)
[2022-05-17 17:46] LABS: Thyroid Stimulating Hormone 3.85 uIU/mL (0.27-4.20)
[2022-05-17 18:18] LABS: Add Urine Microscopic? NO; Charge for UA Resulting for Rev
[2022-05-17 18:24] LABS: Specific Gravity, Urine 1.015 (1.005-1.030); Urine Appearance Clear (CLEAR); Urine Color Yellow (Yellow); pH Urine 6.5 (5-7)
[2022-05-17 18:25] LABS: Bilirubin Urine Neg (Negative); Blood Urine Neg (Negative); Glucose Urine UA 2+ (Normal); Ketones Urine 1+ (Negative); Leukocyte Esterase Urine Negative (Negative); Nitrate Urine Negative (Negative); Protein Urine Neg (Negative); Urobilinogen Urine 4 mg/dL (Negative)
[2022-05-17 18:25] LABS: Adenovirus Not Detected (NOT DETECT); Chlamydia Pneumoniae Not Detected (NOT DETECT); Coronavirus 229E,HKU1,NL63,OC4 Not Detected (NOT DETECT); Human Metapneumovirus Not Detected (NOT DETECT); Human Rhinovirus/Enterovirus Not Detected (NOT DETECT); Influenza A Not Detected (NOT DETECT); Influenza A H1 Not Detected (NOT DETECT); Influenza A H1-2009 Not Detected (NOT DETECT); Influenza A H3 Not Detected (NOT DETECT); Influenza B Not Detected (NOT DETECT); Mycoplasma Pneumoniae Not Detected (NOT DETECT); Parainfluenza Virus Type 1 Not Detected (NOT DETECT); Parainfluenza Virus Type 2 Not Detected (NOT DETECT); Parainfluenza Virus Type 3 Not Detected (NOT DETECT); Parainfluenza Virus Type 4 Not Detected (NOT DETECT); Respiratory Syncytial Virus A Not Detected (NOT DETECT); Respiratory Syncytial Virus B Not Detected (NOT DETECT); SARS-COV-2 Not Detected (NOT DETECT)
[2022-05-17 19:59] LABS: Troponin 5 2HR 21.44 ng/L (0-15)
[2022-05-17] MEDS: iohexol 350 mg/mL 500 mL Btl (per mL) IV (20:03)
[2022-05-17 20:04] LABS: Troponin 5 2HR Delta -2.56 ABS# (0-10)
--- NOTE | 2022-05-17 21:50 | USCV_ITS ---
Flako Petty Age: 67 Gender: M : 1955 Exam Date: 05/17/2022 22:51 Ordering Phys: Kelvin Smith MD Technologist: ANTONIA Exam Location: [facility] – [place] Indication: HTN DM SOB. LE edema. No history of cardiac intervention per patient. BP: 178 / 105 HR: 80 Rhythm: Sinus Technical Quality: Adequate MEASUREMENTS (Male / Female) Normal Values 2D ECHO LV Diastolic Diameter PLAX 4.5 cm 4.2 - 5.9 / 3.9 - 5.3 cm LV Systolic Diameter PLAX 3.2 cm IVS Diastolic Thickness 1.6 cm 0.6 - 1.0 / 0.6 - 0.9 cm IVS Systolic Thickness 1.8 cm LVPW Diastolic Thickness 1.1 cm 0.6 - 1.0 / 0.6 - 0.9 cm LVPW Systolic Thickness 1.3 cm LVOT Diameter 2.1 cm LV Ejection Fraction 2D Teich 55.1 % LV Ejection Fraction MOD 2C 59.5 % LV Ejection Fraction 2C AL 60.7 % LA Diameter 4.5 cm LA Width 3.5 cm LA Height 5.5 cm RA Width 4.1 cm RA Height 6.5 cm Aorta at Sinotubular Diameter 3.0 cm IVC Diameter 1.8 cm M-MODE Aortic Annulus Diameter 3.0 cm LA Ao Ratio MM 1.6 MV E Point Septal Separation 0.4 cm DOPPLER AV Peak Velocity 130.0 cm/s LVOT Peak Velocity 84.0 cm/s AV Area Cont Eq vti 2.9 cm squared AV Area Cont Eq pk 2.3 cm squared MV Area PHT 4.4 cm squared Mitral E to A Ratio 1.1 MV E' Velocity 64.5 cm/s Mitral E to MV E' Ratio 17.5 Mitral E to LV E' Lateral Ratio 18.0 Mitral E to LV E' Septal Ratio 17.0 TR Peak Velocity 230.0 cm/s TR Peak Gradient 21.2 mmHg TV Peak E Velocity 65.0 cm/s Right Atrial Pressure 10.0 mmHg Pulmonary Artery Systolic Pressu 31.2 mmHg PV Peak Velocity 118.0 cm/s RV Acceleration Time 0.1 s RV Ejection Time 0.4 s RV AcT/ET 0.3 FINDINGS Left Ventricle Left ventricle is normal in size. LV systolic function is normal with EF of 55 to 60%. No regional wall motion abnormalities are seen. Right Ventricle Normal in size and function Right Atrium Normal in size Left Atrium Normal in size. Mitral Valve Mild mitral annular calcification. Trace mitral regurgitation Aortic Valve Structurally normal aortic valve. No significant stenosis or regurgitation seen. Tricuspid Valve Mild tricuspid regurgitation. Pulmonary artery systolic pressure is normal. Pulmonic Valve Not well-visualized. Trace pulmonic regurgitation. Pericardium Normal. Aorta Normal in size. IVC Appears to be normal CONCLUSIONS LV systolic function is normal with EF of 55 to 60%. Trace mitral regurgitation Mild tricuspid regurgitation Trace pulmonic regurgitation No comparison studies are available Aditya Shaffer MD (Electronically Signed) Final Date: 18 May 2022 12:03 S
--- NOTE | 2022-05-17 21:54 | USCV_ITS ---
Flako Petty Age: 67 Gender: M : 1955 Exam Date: 05/17/2022 23:25 Ordering Phys: Kelvin Smith MD Technologist: ANTONIA [place]am [place] [facility] [place]: Lower extremity edema. HTN DM SOB. No history of DVT per patient. HISTORY: Lower extremity edema. HTN DM SOB. No history of DVT per patient. PROCEDURES: Venous duplex imaging was performed in bilateral lower extremities. The following venous structures were evaluated: common femoral vein, profunda vein, proximal portion of the greater saphenous vein, superficial femoral vein, and the popliteal vein. FINDINGS: Normal 2-D Doppler and augmentation and compressibility throughout the lower extremity venous structures. Additional imaging through the proximal calf veins also reveals no thrombus. Limited evaluation of the greater saphenous vein is patent with no thrombus. CONCLUSIONS No DVT bilateral lower extremities. Dr. Allison Cunningham DO (Electronically Signed) Final Date: 18 May 2022 07:39 S
--- NOTE | 2022-05-17 21:57 | PM.HP ---
Providers/Chief Complaint Admitting Physician: Kelvin Smith MD Primary Care Provider: Tesha Mariee MD Chief Complaint: SOB, Swelling all over History of Present Illness Flako Petty is a 67 year old male with past medical history of hypertension diabetes hypothyroidism, came in today with chief complaint of worsening shortness of breath, associated with PND and orthopnea, started about 2 weeks back and since then it has progressively worsened, he was also complaining of worsening bilateral lower extremity swelling, significant weight gain in the last 2 weeks, states more than 20 pounds, According to the patient he also feels, that he has swollen a lot. Patient has denied any chest pain fever cough nausea vomiting palpitation. CT chest abdomen and pelvis: Has not shown any pulm embolism, Trace left pleural effusion with atelectasis at the posterior left lung base.Trace pericardial effusion.No acute intra-abdominal findings.Subcutaneous edema noted in the bilateral flank regions. Xray chest no acute findings. EKG: SR with occasional PVCs. WBC 4.1, H&H 15/50, PLT : 125 , serum sodium 137, serum potassium 4.6, BUN 14 serum creatinine 0.9, TSH: 3.85 Troponin trend: 24,21,23 , proBNP 1949 ABG: pH 7.33, PCO2 68, PO2 120, FiO2 42%. Review of Systems General: Reports: 10 or more systems reviewed and unremarkable except in HPI and below Const: Denies: fever(s), chills, body aches, change in appetite or diaphoresis Card: Reports: edema, swelling of feet/ankles, dyspnea on exertion and orthopnea; Denies: palpitations or leg pain with exertion Resp: Reports: dyspnea; Denies: productive cough, wheezing or pain on inspiration GI: Denies: abdominal pain, nausea, vomiting, diarrhea or constipation : Denies: flank pain or difficulty urinating Musc: Reports: extremity swelling; Denies: back pain or extremity pain Neuro: Denies: headache(s), difficulty walking or confusion Medications/Allergies Home Medications Medication Instructions Recorded Confirmed Last Taken Type citalopram 40 mg tablet 60 mg PO DAILY 02/16/22 05/17/22 05/17/22 History glipizide 5 mg tablet 5 mg PO BID 02/16/22 05/17/22 05/17/22 History metoprolol tartrate 50 mg tablet 50 mg PO BID 02/16/22 05/17/22 05/17/22 History omeprazole 20 mg tablet,delayed 20 mg PO DAILY PRN Acid Reflux 02/16/22 05/17/22 03/01/22 History release pioglitazone 30 mg tablet 30 mg PO DAILY 02/16/22 05/17/22 05/17/22 History CAM BOOT #1 ea 03/31/22 05/17/22 Unknown Rx trazodone 100 mg tablet 100 mg PO DAILY #30 tabs 04/04/22 05/17/22 05/16/22 Rx levothyroxine 88 mcg tablet 88 mcg PO DAILY #90 tabs 04/13/22 05/17/22 05/17/22 Rx metformin 500 mg tablet,extended 1,000 mg PO BID 3 months #360 tabs 04/13/22 05/17/22 05/17/22 Rx release 24 hr ASO brace #1 ea 04/14/22 05/17/22 Unknown Rx Allergies Allergy/AdvReac Type Severity Reaction Status Date / Time No Known Allergies Allergy Verified 05/17/22 22:51 PFSH Acute PFSH: Medical History Diabetes Former smoker Hypertension Hypothyroidism Insomnia Surgical History H/O colonoscopy 2020 NORMAL Family History Brother , LIVER Cancer Mother Cancer OVARIAN Sister , LUNG METS TO BRAIN No problems noted. 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 Current gender identity: Male Vitals/I&O/Wt Last Vital Signs Temp 97.8 F 05/17/22 16:04 Pulse 89 05/17/22 21:45 Resp 23 H 05/17/22 21:45 BP 178/105 05/17/22 21:45 Pulse Ox 94 05/17/22 21:45 O2 Del Method 05/17/22 21:45 O2 Flow Rate 2 05/17/22 21:45 Weight last 48 hrs Weight 112.491 kg Physical Exam Const: COMMON NORMALS: patient oriented x3 HENMT: COMMON NORMALS: normocephalic and atraumatic HEAD & SCALP: normocephalic and atraumatic Resp: COMMON NORMALS: clear to auscultation bilaterally AUSCULTATION: clear to auscultation bilaterally Cardio: COMMON NORMALS: regular rate, regular rhythm, S1 normal heart sound present, S2 normal heart sound present, No gallops present (Cardio), No murmurs present (Cardio), No rub (Cardio) and Peripheral pulses 2+ throughout RATE: regular rate RHYTHM: regular rhythm HEART SOUNDS: S1 normal heart sound present and S2 normal heart sound present PERIPHERAL PULSES: Peripheral pulses 2+ throughout GI: COMMON NORMALS: Normal to inspection, nondistended, normoactive bowel sounds present, Soft to palpation, non-tender, No hepatosplenomegaly present and no masses AUSCULTATION: Yes normoactive bowel sounds PALPATION: Yes Soft to palpation and Yes No hepatosplenomegaly present RECTAL EXAM: Yes deferred Extremity: NARRATIVE EXTREMITY EXAM: 2 + b/l pitting edema in both the lower extremity. Neuro: COMMON NORMALS: patient oriented x3 Data 05/17/22 16:28 05/17/22 16:28 A&P Assessment and plan (1) Hypertension: (2) Diabetes: (3) Hypothyroidism: (4) Symptom of congestive heart failure: (5) Hypoxia: (6) Thrombocytopenia: Plan 67 year old male with past medical history of hypertension diabetes hypothyroidism, came in today with chief complaint of worsening shortness of breath, associated with PND and orthopnea, started about 2 weeks back and since then it has progressively worsened, he was also complaining of worsening bilateral lower extremity swelling, significant weight gain in the last 2 weeks, states more than 20 pounds, According to the patient he also feels, that he has swollen a lot. Patient has denied any chest pain fever cough nausea vomiting palpitation. Assessment: Clinically patient seems to be in decompensated heart failure: Type unknown CT chest abdomen and pelvis: Has not shown any pulm embolism, Trace left pleural effusion with atelectasis at the posterior left lung base.Trace pericardial effusion.No acute intra-abdominal findings.Subcutaneous edema noted in the bilateral flank regions. Xray chest no acute findings. EKG: SR with occasional PVCs. Urinalysis: Urine protein negative Lower extremity Doppler vein: Follow 2D echo Continue Lasix 40 IV daily Lisinopril 5 mg p.o. daily Monitor intake output charting Daily weight Monitor electrolytes Continue telemetry monitoring History of hypertension: Started on lisinopril 5 mg p.o. daily Metoprolol tartrate 50 p.o. twice daily Monitor blood pressure to achieve blood recommended goals. Diabetes: Lantus 20 subcu at bedtime SSI,FSG History of hypothyroidism; TSH is within normal range Continue levothyroxine Thrombocytopenia: Admission platelet count is 125 Currently has no active bleeding no petechiae no purpura Monitor platelet count for now Hypoxia: Possibly secondary to decompensated heart failure, sleep apnea Currently requiring 3 to 4 L supplemental oxygen Supplemental oxygen as needed to maintain saturation greater than 95 CODE STATUS: Full code DVT prophylaxis on: SCDS Attestations Medical Necessity Statement*: Patient is in hospital management of possible heart failure. length of stay greater than 2 midnights Coding Level of Care Code 47918 Diagnoses Hypertension I10 Diabetes E11.9 Hypothyroidism E03.9 Symptom of congestive heart failure R09.89 Hypoxia R09.02 Thrombocytopenia D69.6
[2022-05-17] MEDS: magnesium sulfate premix 2 GM/50 ML PIGGYBACK IV (22:24)
[2022-05-17] MEDS: enoxaparin 40 mg/0.4 mL Syringe SUBCUT (22:24)
[2022-05-17] MEDS: FUROsemide 10 mg/mL SDV 4mL 40 MG IVP (22:24)
--- NOTE | 2022-05-17 22:24 | ECG_ITS ---
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 Measurements Intervals [place] Rate: 71 P: 71 MI: 173 QRS: 83 QRSD: 79 T: 53 QT: 401 QTc: 438 Interpretive Statements SINUS RHYTHM WITH OCCASIONAL VENTRICULAR PREMATURE COMPLEXES LOW QRS VOLTAGE IN PRECORDIAL LEADS [QRS DEFLECTION < 1.0 mV IN CHEST LEADS] Compared to ECG 05/17/2022 16:11:29 Ventricular premature complex(es) now present Electronically Signed On 05-18-2022 18:13:39 VEGETABLE LOADER by Aditya Shaffer M.D. [id number]
[2022-05-17 22:43] LABS: Troponin 5 6HR 23.01 ng/L (0-15)
[2022-05-17] MEDS: insulin lispro 100 unit/1 mL SUBCUT (22:52)
[2022-05-17] MEDS: insulin glargine 100 units/1 mL 20 UNIT SUBCUT (22:52)
[2022-05-17 22:59] LABS: Glucose Point of Care 241 mg/dL (70-110)
[2022-05-17 23:05] LABS: Troponin 5 6HR Delta -0.99 ng/L (0-12)
[2022-05-18] VITALS (9 sets, daily range): BP systolic 133–158; BP diastolic 71–81; PULSE 65–86; RESP 15–18; TEMP 36.4–36.8; O2SAT 91–99
--- NOTE | 2022-05-18 03:06 | PC.NURSE ---
Upon rounding, patient had nasal cannula off and had urinated in bed. Patient seemed slightly confused. Oxgyen saturation 73 percent. Nasal cannula placed back on patient and oxygen saturation now 96 percent. Linen change completed. Bed alarm set. A few minutes later, patient's oxygen saturation 98 percent and patient alert and oriented x4.
[2022-05-18 03:14] LABS: Glucose Point of Care 114 mg/dL (70-110)
--- NOTE | 2022-05-18 04:50 | PC.NURSE ---
Patient educated x2 to use urinal for accurate urine output measurement. Patient up to bathroom x2 and when reeducated states I forgot.
[2022-05-18 05:16] LABS: Basophils % 0.7 %; Eosinophils # 0.3 10^3/uL (0.0-0.8); Eosinophils % 5.7 %; Hematocrit 49.4 % (42.0-52.0); Hemoglobin 15.3 g/dL (11.7-16.6); Lymphocytes # 0.7 10^3/uL (0.8-4.8); Lymphocytes % 14.9 %; Mean Corpuscular Hemoglobin 27.9 pg (28.0-34.0); Mean Platelet Volume 11.7 fL (7.4-10.4); Monocytes # 0.5 10^3/uL (0.2-0.9); Monocytes % 11.2 %; Neutrophils # 3.06 10^3/uL (1.8-7.7); Neutrophils % 67.1 %; Nucleated Red Blood Cells % 0 %; Platelet Count 107 10^3/cmm (130-400); Red Blood Count 5.49 10^6/uL (4.1-5.3); Red Cell Distribution Width 13.7 % (12.1-15.1); White Blood Count 4.6 10^3/uL (4.0-10.0)
[2022-05-18 05:41] LABS: Alanine Aminotransferase 21 U/L (0-41); Albumin Level 3.6 g/dL (3.5-5.2); Alkaline Phosphatase 48 U/L (40-130); Aspartate Amino Transferase 19 U/L (0-40); Blood Urea Nitrogen 13 mg/dL (8-23); Calcium 8.6 mg/dL (8.5-10.5); Chloride 96 mmol/L (98-107); Globulin 2.8 g/dL (1.3-4.6); Glomerular Filtration Rate 74.3 mL/min (90-130); Glucose 158 mg/dL (65-115); Osmolality Calculated 297 mOsm/kg (285-295); Sodium 142 mmol/L (136-145); Total Bilirubin 0.7 mg/dL (0.15-1.2); Total Protein 6.4 g/dL (6.6-8.7)
[2022-05-18 05:44] LABS: Anion Gap 9.3 (5-19); Potassium 4.3 mmol/L (3.5-5.1)
[2022-05-18 06:00] LABS: Carbon Dioxide 41 mmol/L (22-29)
[2022-05-18 06:43] LABS: Glucose Point of Care 146 mg/dL (70-110)
[2022-05-18] MEDS: insulin lispro 100 unit/1 mL SUBCUT ×3 (08:47→17:43)
[2022-05-18] MEDS: metoprolol tartrate 50 mg Tablet PO ×2 (08:49→17:43)
[2022-05-18] MEDS: citalopram 20 mg Tablet 60 MG PO (08:49)
[2022-05-18] MEDS: levothyroxine 88 mcg Tablet PO (08:49)
[2022-05-18] MEDS: lisinopril 5 mg Tablet PO (08:50)
[2022-05-18] MEDS: pantoprazole DR 40 mg Tablet PO (08:50)
--- NOTE | 2022-05-18 10:09 | PC.CHAP ---
Pastoral Care Encounter/Spiritual Assessment Type of Contact [] Declined building tech visit [] Patient/Family/Request visit [] Outpatient visit [] Follow-up visit [] Physician referral [] Code/Alert [x] Routine visit [] Staff referral [] Actively dying [] Patient sleeping [] Family support [] [] Out of room [] Palliative care [] [x] Receiving care in room [] Pre-surgical visit [] Trauma [] Long length of stay [] ICU visit [] Other: Relational/Emotional Strength [x] Patient feels connected with others/family/visitors/staff [] Distress [] Loneliness/isolation [] Abandonment Spirituality of Patient [x] Person of Faby [] Attends Anabaptism of their Faby [x] Believes in Prayer [] Reads Bible or Baptist materials [] There are Spiritual issues to be addressed System Analyst Interventions [x] Prayer [xx] Active listening [x] Non-anxious presence [x] Spiritual/emotional support [] Crisis/trauma care [x] Spiritual counseling [] Bereavement support [] Provided bereavement packet [] Provided Bible/devotional materials [] Provided toy/stuffed animal, coloring book to patient or family member [] Provided Communion [] Anointing/[place] [] Salvation [x] Completed spiritual assessment [] Other: Impact on Illness or Injury [] Angry [] Fearful [x] Anxious [] Often cries [] Exhaustion [] Unable to work [] Unable to attend moravian [] Unable to walk/stand [] Unable to read [] Unable to drive [] Unable to eat/drink [] Unable to sleep [] Unable to be with family [] Patient intubated [] Other: Summary swelling in legs waiting on doctors report has a negative attitude well be able to go home soon Time spent with patient 10 mins
--- NOTE | 2022-05-18 11:20 | PM.PN ---
Subjective Subjective: Seen today. On 4 L nasal cannula. States he is not on oxygen at home. He says since the last 2 weeks has been gaining weight feels bloated has shortness of breath on exertion and has gained close to 18 pounds. He says he is not even a smoker and is unsure why this is going on. Does not have a diagnosed history of heart failure from before. Follows up with his primary care doctor frequently. Says he has been healthy prior to this. Vitals/I&O/Wt Last Vital Signs Temp 97.6 F 05/18/22 07:32 Pulse 86 05/18/22 08:02 Resp 16 05/18/22 07:32 BP 158/71 05/18/22 07:32 Pulse Ox 94 05/18/22 08:02 O2 Del Method 05/18/22 08:02 O2 Flow Rate 4 05/18/22 08:02 05/17/22 05/18/22 05/18/22 22:59 06:59 14:59 Intake Total 50 / 50 Output Total 500 / 500 550 / 1050 Balance -450 / -450 -550 / -1000 Weight last 48 hrs Weight 112.122 kg Weight 111.72 kg Weight 112.491 kg Physical Exam Narrative: General: Alert oriented x3, patient seen laying in bed on 4 L nasal cannula at this time. HEENT: Normocephalic, atraumatic, EOMI, breathing comfortably. Cardio: Regular rate rhythm, normal S1-S2, Respiratory: Clear to auscultation bilaterally no wheezes no rhonchi no crackles appreciated. Patient was examined sitting up., GI: Abdomen soft, nontender, bowel sounds +, abdomen full and distended due to edema. Behavior: Appropriate and cooperative Extremities: 2+ pitting edema bilateral lower extremity up to thighs Data 05/18/22 04:38 05/18/22 04:38 A&P Assessment and plan (1) Hypertension: (2) Diabetes: (3) Hypothyroidism: (4) Symptom of congestive heart failure: (5) Hypoxia: (6) Thrombocytopenia: Plan 67 year old male with past medical history of hypertension diabetes hypothyroidism, came in today with chief complaint of worsening shortness of breath, associated with PND and orthopnea, started about 2 weeks back and since then it has progressively worsened, he was also complaining of worsening bilateral lower extremity swelling, significant weight gain in the last 2 weeks, states more than 20 pounds, According to the patient he also feels, that he has swollen a lot. Patient has denied any chest pain fever cough nausea vomiting palpitation. Assessment: Clinically patient seems to be in decompensated heart failure: Type unknown CT chest abdomen and pelvis: Has not shown any pulm embolism, Trace left pleural effusion with atelectasis at the posterior left lung base.Trace pericardial effusion.No acute intra-abdominal findings.Subcutaneous edema noted in the bilateral flank regions. Xray chest no acute findings. EKG: SR with occasional PVCs. Urinalysis: Urine protein negative Bilateral lower extremity Dopplers ruled out DVT. Echocardiogram pending at this time Continue Lasix 40 IV daily Lisinopril 5 mg p.o. daily Monitor intake output charting Daily weight Monitor electrolytes Continue telemetry monitoring History of hypertension: Continue on lisinopril 5 mg p.o. daily Metoprolol tartrate 50 p.o. twice daily Monitor blood pressure to achieve blood recommended goals. Diabetes: Lantus 20 subcu at bedtime SSI,FSG History of hypothyroidism; TSH is within normal range Continue levothyroxine Thrombocytopenia: Admission platelet count is 125 Currently has no active bleeding no petechiae no purpura Monitor platelet count for now Hypoxia: Possibly secondary to decompensated heart failure, sleep apnea Currently requiring 3 to 4 L supplemental oxygen Supplemental oxygen as needed to maintain saturation greater than 95 CODE STATUS: Full code DVT prophylaxis on: SCDS Attestations Medical Necessity Statement*: Will require greater than 2 midnight stay at this point for management of decompensated heart failure which is clinically diagnosed at this time. Echo is not back yet. Diagnoses Hypertension I10 Diabetes E11.9 Hypothyroidism E03.9 Symptom of congestive heart failure R09.89 Hypoxia R09.02 Thrombocytopenia D69.6
[2022-05-18 11:23] LABS: Glucose Point of Care 184 mg/dL (70-110)
[2022-05-18 16:59] LABS: Glucose Point of Care 166 mg/dL (70-110)
[2022-05-18] MEDS: insulin glargine 100 units/1 mL 20 UNIT SUBCUT (21:02)
[2022-05-18] MEDS: trazodone 100 mg Tablet PO (21:02)
[2022-05-18] MEDS: FUROsemide 10 mg/mL SDV 4mL 40 MG IVP (23:45)
[2022-05-19] VITALS (9 sets, daily range): BP systolic 96–145; BP diastolic 56–81; PULSE 57–85; RESP 15–18; TEMP 36.6–37.3; O2SAT 92–97
[2022-05-19 05:29] LABS: Basophils % 0.4 %; Eosinophils # 0.2 10^3/uL (0.0-0.8); Eosinophils % 4.3 %; Hematocrit 51.5 % (42.0-52.0); Hemoglobin 15.7 g/dL (11.7-16.6); Lymphocytes # 0.8 10^3/uL (0.8-4.8); Lymphocytes % 15.5 %; Mean Corpuscular HGB Conc 30.5 g/dL (30.0-36.0); Mean Corpuscular Volume 91.8 fl (80-94); Mean Platelet Volume 11.7 fL (7.4-10.4); Monocytes # 0.6 10^3/uL (0.2-0.9); Monocytes % 12.4 %; Neutrophils # 3.25 10^3/uL (1.8-7.7); Nucleated Red Blood Cells % 0 %; Platelet Count 119 10^3/cmm (130-400); Red Blood Count 5.61 10^6/uL (4.1-5.3); Red Cell Distribution Width 13.8 % (12.1-15.1); White Blood Count 4.9 10^3/uL (4.0-10.0)
[2022-05-19 05:52] LABS: Alanine Aminotransferase 19 U/L (0-41); Albumin Level 3.8 g/dL (3.5-5.2); Alkaline Phosphatase 51 U/L (40-130); Anion Gap 8.8 (5-19); Aspartate Amino Transferase 18 U/L (0-40); Blood Urea Nitrogen 10 mg/dL (8-23); Calcium 8.7 mg/dL (8.5-10.5); Chloride 94 mmol/L (98-107); Globulin 2.8 g/dL (1.3-4.6); Glomerular Filtration Rate 74.3 mL/min (90-130); Glucose 208 mg/dL (65-115); Magnesium 1.9 mg/dL (1.7-2.3); Osmolality Calculated 301 mOsm/kg (285-295); Potassium 4.8 mmol/L (3.5-5.1); Sodium 143 mmol/L (136-145); Total Bilirubin 0.7 mg/dL (0.15-1.2); Total Protein 6.6 g/dL (6.6-8.7)
[2022-05-19 06:25] LABS: Carbon Dioxide 45 mmol/L (22-29)
[2022-05-19 06:42] LABS: Glucose Point of Care 185 mg/dL (70-110)
[2022-05-19] MEDS: citalopram 20 mg Tablet 60 MG PO (08:29)
[2022-05-19] MEDS: insulin lispro 100 unit/1 mL SUBCUT ×3 (08:29→17:29)
[2022-05-19] MEDS: pantoprazole DR 40 mg Tablet PO (08:30)
[2022-05-19] MEDS: metoprolol tartrate 50 mg Tablet PO ×2 (08:30→17:29)
[2022-05-19] MEDS: levothyroxine 88 mcg Tablet PO (08:30)
[2022-05-19] MEDS: lisinopril 5 mg Tablet PO (08:30)
[2022-05-19 11:37] LABS: Glucose Point of Care 221 mg/dL (70-110)
--- NOTE | 2022-05-19 12:02 | USCV_ITS ---
Flako Petty Age: 67 Gender: M : 1955 Exam Date: 05/19/2022 13:30 Ordering Phys: Milena Peralta MD Technologist: LAYLA Exam Location: [facility] [place] Indication: pulm htn BP: / HR: 73 Rhythm: Sinus Technical Quality: Adequate MEASUREMENTS (Male / Female) Normal Values DOPPLER TR Peak Velocity 271.0 cm/s TR Peak Gradient 29.4 mmHg Right Atrial Pressure 3.0 mmHg Pulmonary Artery Systolic Pressu 32.4 mmHg PV Peak Velocity 95.0 cm/s FINDINGS Left Ventricle Right Ventricle Right Atrium Left Atrium Mitral Valve Aortic Valve Tricuspid Valve Pulmonic Valve Pericardium Aorta IVC CONCLUSIONS This is a limited echocardiogram LV systolic function is grossly normal with EF of 55 to 60%. No regional wall motion abnormalities are seen. RV is normal in size and function Mild pulmonic regurgitation Mild tricuspid regurgitation. Pulmonary artery systolic pressure is 30 to 35 mmHg. No significant pulmonary hypertension as noted on current echocardiogram. Compared to prior echocardiogarm from 05/17/2022, no significant changes are seen Aditya Shaffer MD (Electronically Signed) Final Date: 19 May 2022 16:44 S
--- NOTE | 2022-05-19 13:04 | P.PN_ITS ---
Subjective Subjective: Seen this morning. Patient has probably had a lot of urine output however charted is only 400 cc. He has urinal at bedside. He states he has filled up 2 of those overnight. Symptomatically feels better. at bedside, daughter at bedside. They state that patient was immobilized and in bed for 2 months due to a foot fracture which was repaired by podiatry. He stayed in bed for that long. When he got up and started to walk he became really short of breath. Over the last 2 weeks since he has been able to walk around he feels short of breath. He is a former smoker. Quit 9 years ago. Does not have a diagnosed history of COPD. states that overnight when he sleeps he wakes up at least 3 times. He snores. However she has not noticed any apneic episodes. Echo done this admission shows normal EF with no other significant abnormalities. Blood pressure 96/56 today. Vitals/I&O/Wt Last Vital Signs Temp 98.7 F 05/19/22 11:14 Pulse 70 05/19/22 12:02 Resp 18 05/19/22 11:14 BP 96/56 05/19/22 11:14 Pulse Ox 92 05/19/22 12:02 O2 Del Method 05/19/22 12:02 O2 Flow Rate 4 05/19/22 12:02 05/18/22 05/19/22 05/19/22 22:59 06:59 14:59 Intake Total 740 / 1340 840 / 840 Output Total 250 / 250 150 / 400 Balance 490 / 1090 -150 / 940 840 / 840 Weight last 48 hrs Weight 112.122 kg Weight 111.72 kg Weight 112.491 kg Physical Exam Narrative: General: Alert oriented x3, patient seen laying in bed flat 4 L nasal cannula at this time. HEENT: Normocephalic, atraumatic, EOMI, breathing comfortably. Cardio: Regular rate rhythm, normal S1-S2, Respiratory: Clear to auscultation bilaterally no wheezes no rhonchi no crackles appreciated. GI: Abdomen soft, nontender, bowel sounds +, abdomen distended however soft and better than yesterday. Behavior: Appropriate and cooperative Extremities: 1+ pitting edema bilateral lower extremity up to thighs Data 05/19/22 04:45 05/19/22 04:45 A&P Assessment and plan (1) Hypertension: (2) Diabetes: (3) Hypothyroidism: (4) Symptom of congestive heart failure: (5) Hypoxia: (6) Thrombocytopenia: Plan 67 year old male with past medical history of hypertension diabetes hy pothyroidism, came in today with chief complaint of worsening shortness of breath, associated with PND and orthopnea, started about 2 weeks back and since then it has progressively worsened, he was also complaining of worsening bilateral lower extremity swelling, significant weight gain in the last 2 weeks, states more than 20 pounds, According to the patient he also feels, that he has swollen a lot. Patient has denied any chest pain fever cough nausea vomiting palpitation. He was immobilized for 2 months due to his foot fracture. He does started physical therapy this past Sunday. #Physical deconditioning #Possible pulmonary hypertension #Possible undiagnosed underlying obstructive sleep apnea #Acute hypoxia requiring supplemental oxygen #No evidence of heart failure on echocardiogram #Hypertension #Diabetes mellitus #Hypothyroidism #Thrombocytopenia #Former smoker ? Echo shows systolic function normal with EF 55 to 60%. Trace mitral regurg, mild tricuspid regurgitation. Trace pulmonic regurgitation. No comparison studies available. ? I believe patient might have underlying obstructive sleep apnea and require an outpatient sleep study. We will also do overnight pulse ox today. ? We will check home oxygen evaluation today as well ? Clinically feels a lot better. Echo did not show any apparent heart failure. ? I will stop Lasix at this point. ? Patient seems to be in a contraction alkalosis. Baseline bicarb is usually 31-35 however he is at 45 today. I will give him 2 days of Diamox 250x1. ? I will order normal saline bolus to 50 cc x 1 due to softer blood pressure. If pressure remains low I will hold off on Diamox as well. ? Hold lisinopril at this time. ? Patient is a former smoker and unsure if there is a component of underlying C OPD. I will try Solu-Medrol 40 IV twice daily today to see if there is any clinical response. ? Patient might need to leave the hospital with O2 supplementation. We will assess this with a home O2 eval. ? Platelets are slightly on the lower side. No active bleeding or petechia or purpura noted. Monitor count for now. No pharmacological DVT prophylaxis at this time. -Discussed all the above with patient's family at bedside and they are in agreement. ? Check physical therapy evaluation. ? I will order limited echo to evaluate for pulmonary hypertension if possible. CODE STATUS: Full code DVT prophylaxis on: SCDS Attestations Medical Necessity Statement*: Possible discharge tomorrow pending clinical course. Continue above management for today. Diagnoses Hypertension I10 Diabetes E11.9 Hypothyroidism E03.9 Symptom of congestive heart failure R09.89 Hypoxia R09.02 Thrombocytopenia D69.6
[2022-05-19] MEDS: acetaZOLAMIDE 250 mg Tablet PO (14:26)
[2022-05-19 16:49] LABS: Glucose Point of Care 280 mg/dL (70-110)
[2022-05-19 20:55] LABS: Glucose Point of Care 370 mg/dL (70-110)
[2022-05-19] MEDS: trazodone 100 mg Tablet PO (21:31)
[2022-05-19] MEDS: insulin glargine 100 units/1 mL 20 UNIT SUBCUT (21:31)
[2022-05-20] VITALS (7 sets, daily range): BP systolic 107–161; BP diastolic 68–99; PULSE 66–84; RESP 14–15; TEMP 36.4–36.6; O2SAT 87–95
--- NOTE | 2022-05-20 01:45 | PC.NURSE ---
Continous pulse ox alarming. Patient's oxygen saturation 73 percent. Patient's nasal cannula out of nose. Cannula placed back on nose. Patient educated to oxygen on and states I thought it was. This nurse stayed in room with patient until oxygen saturation came back up to 90 percent.
[2022-05-20 05:01] LABS: Basophils % 0.2 %; Hematocrit 53.2 % (42.0-52.0); Hemoglobin 16.5 g/dL (11.7-16.6); Lymphocytes # 0.8 10^3/uL (0.8-4.8); Lymphocytes % 12.5 %; Mean Corpuscular Hemoglobin 28.4 pg (28.0-34.0); Mean Corpuscular Volume 91.6 fl (80-94); Mean Platelet Volume 12.1 fL (7.4-10.4); Monocytes # 0.1 10^3/uL (0.2-0.9); Monocytes % 1.5 %; Neutrophils % 85.1 %; Nucleated Red Blood Cells % 0 %; Platelet Count 130 10^3/cmm (130-400); Red Blood Count 5.81 10^6/uL (4.1-5.3); Red Cell Distribution Width 13.2 % (12.1-15.1); White Blood Count 6.1 10^3/uL (4.0-10.0)
[2022-05-20 05:21] LABS: Alanine Aminotransferase 18 U/L (0-41); Albumin Level 4.1 g/dL (3.5-5.2); Alkaline Phosphatase 58 U/L (40-130); Aspartate Amino Transferase 20 U/L (0-40); Blood Urea Nitrogen 18 mg/dL (8-23); Carbon Dioxide 34 mmol/L (22-29); Chloride 95 mmol/L (98-107); Globulin 3.1 g/dL (1.3-4.6); Glomerular Filtration Rate 83.9 mL/min (90-130); Glucose 390 mg/dL (65-115); Magnesium 1.9 mg/dL (1.7-2.3); Osmolality Calculated 300 mOsm/kg (285-295); Sodium 136 mmol/L (136-145); Total Bilirubin 0.6 mg/dL (0.15-1.2); Total Protein 7.2 g/dL (6.6-8.7)
[2022-05-20 05:38] LABS: Anion Gap 12.2 (5-19); Potassium 5.2 mmol/L (3.5-5.1)
[2022-05-20 06:46] LABS: Glucose Point of Care 312 mg/dL (70-110)
[2022-05-20] MEDS: insulin lispro 100 unit/1 mL SUBCUT ×2 (08:32→13:29)
[2022-05-20] MEDS: citalopram 20 mg Tablet 60 MG PO (08:33)
[2022-05-20] MEDS: metoprolol tartrate 50 mg Tablet PO (08:33)
[2022-05-20] MEDS: levothyroxine 88 mcg Tablet PO (08:33)
[2022-05-20] MEDS: pantoprazole DR 40 mg Tablet PO (08:33)
--- NOTE | 2022-05-20 09:29 | PC.SOCIAL ---
Imm update Imm updated with patient at bedside. Copy of page 2 provided. Patient verbalized understanding. Copy in chart initialed, dated and timed.
--- NOTE | 2022-05-20 11:17 | PM.DCS ---
Discharge Providers Date of Admission: 05/17/22 20:45 Date of Discharge: May 20, 2022 Attending Provider at Admission: Kelvin Smith MD Attending Provider at Discharge: Milena Peralta MD Primary Care Provider: Tesha Mariee MD Diagnoses at Discharge Discharge Diagnosis (1) Hypertension: Status: Acute (2) Diabetes: Status: Acute (3) Hypothyroidism: Status: Acute (4) Symptom of congestive heart failure: Status: Acute (5) Hypoxia: Status: Acute (6) Thrombocytopenia: Status: Acute Reason for Visit Reason for Visit: SOB, Swelling all over Brief History: As per Dr. Smith Falko Petty is a 67 year old male with past medical history of hypertension diabetes hypothyroidism, came in today with chief complaint of worsening shortness of breath, associated with PND and orthopnea, started about 2 weeks back and since then it has progressively worsened, he was also complaining of worsening bilateral lower extremity swelling, significant weight gain in the last 2 weeks, states more than 20 pounds, According to the patient he also feels, that he has swollen a lot.? Patient has denied any chest pain fever cough nausea vomiting palpitation. CT chest abdomen and pelvis: Has not shown any pulm embolism,?Trace left pleural effusion with atelectasis at the posterior left lung base.Trace pericardial effusion.No acute intra-abdominal findings.Subcutaneous edema noted in the bilateral flank regions. Xray chest no acute findings. EKG: SR with occasional PVCs. WBC 4.1, H&H 15/50, PLT : 125 , serum sodium 137, serum potassium 4.6, BUN 14 serum creatinine 0.9, TSH: 3.85 Troponin trend: 24,21,23 , proBNP 1949 ABG: pH 7.33, PCO2 68, PO2 120, FiO2 42%. Hospital Course Hospital Course Patient was admitted for shortness of breath PND orthopnea that worsened in the last 2 weeks. He also had gained 20 pounds. Clinically patient was treated for heart failure. I suspect he has diastolic heart failure. He was diuresed with Lasix 40 IV daily while in the hospital and for contraction alkalosis he was given Diamox x1. Lisinopril was held at hospital stay. Patient will be discharged home on Lasix 40 daily with follow-up with cardiology as an outpatient. Echo did not show evidence of diastolic failure or systolic failure. He does meet criteria for clinical diagnosis of it. He was also treated for COPD with Solu-Medrol 40 IV twice daily. Required oxygen supplementation during hospital stay. He will get home oxygen evaluation today only with oxygen if he qualifies. 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 He was immobilized for 2 months due to foot fracture. He stayed in bed for that long. He also has physical deconditioning. He had just started physical therapy as an outpatient twice a week. Overnight pulse ox was also done patient had desaturation episodes 97 times. Patient to have an outpatient sleep apnea study done so that he can qualify for CPAP. Echo did not show any gross evidence of pulmonary hypertension however pulmonary artery pressures were slightly elevated. Discussed all of the above with the patient's and the patient and they are agreeable to go home today. Patient will given follow-up with cardiology. Patient has diuresed 6 L during hospital stay and is in a negative balance at this time. Clinically feels a lot better. Patient did have slightly elevated potassium but sample was hemolyzed today. I have given him 8 mg of potassium to go home with. He will have repeat BMP and CBC in 1 week. Physical Exam Narrative: General: Alert oriented x3, patient seen laying in bed flat 2 L nasal cannula at this time. HEENT: Normocephalic, atraumatic, EOMI, breathing comfortably. Cardio: Regular rate rhythm, normal S1-S2, Respiratory: Clear to auscultation bilaterally no wheezes no rhonchi no crackles appreciated. GI: Abdomen soft, nontender, bowel sounds +, abdomen and flank edema has improved significantly. Behavior: Appropriate and cooperative Extremities: Trace edema bilateral lower extremity up to thighs Discharge Data Studies Completed and Pending Completed Studies During Hospitalization Category Date Time Status CTA chest CT abdomen pelvis [CT angio chest w abd pel w Cat Scan 05/17/22 17:22 Completed con] Stat XR chest 1V portable [id number] Stat Exams 05/17/22 16:24 Completed CV. echo limited [id number] Routine Ultrasound 05/19/22 12:02 Completed US echo complete [CV. echo complete* [id number]] Routine Ultrasound 05/17/22 21:50 Completed US venous duplex lower extremity bilat [CV venous Ultrasound 05/17/22 21:54 [place] [id number]] Routine Pending at discharge Category Date Time Status Clostridioides Difficile PCR Routine Lab 05/18/22 00:44 Uncollected Stool Culture, Bacterial [Enteric Bacterial Panel by Lab 05/18/22 00:44 Uncollected PCR] Routine stool Ova and Parasite [Enteric Parasite Panel by PCR] Lab 05/18/22 00:44 Uncollected Routine Radiology Impressions Chest X-Ray 05/17/22 16:24 IMPRESSION: No acute findings. Chest/Abdomen/Pelvis CT 05/17/22 17:22 IMPRESSION: 1. Trace left pleural effusion with atelectasis at the posterior left lung base. 2. Trace pericardial effusion. IMPRESSION: 1. No acute intra-abdominal findings. 2. Subcutaneous edema noted in the bilateral flank regions. 3. Additional findings described in the body of the report. COMMENTS: Consistent with the [employer]'s Incidental Findings Committee white paper (J Am Marian Radiol 2018): Any incidental renal lesion less than 1 cm or classified as too small to characterize, or any incidental cystic renal lesion characterized as simple-appearing, is likely benign. No follow-up imaging is recommended for these lesions per consensus recommendations based on imaging criteria. Laboratory Results WBC 6.1 10^3/uL (4.0-10.0) 05/20/22 04:19 RBC 5.81 10^6/uL (4.1-5.3) H 05/20/22 04:19 Hgb 16.5 g/dL (11.7-16.6) 05/20/22 04:19 Hct 53.2 % (42.0-52.0) H 05/20/22 04:19 MCV 91.6 fl (80-94) 05/20/22 04:19 MCH 28.4 pg (28.0-34.0) 05/20/22 04:19 MCHC 31.0 g/dL (30.0-36.0) 05/20/22 04:19 RDW 13.2 % (12.1-15.1) 05/20/22 04:19 Plt Count 130 10^3/cmm (130-400) 05/20/22 04:19 MPV 12.1 fL (7.4-10.4) H 05/20/22 04:19 Neut % (Auto) 85.1 % 05/20/22 04:19 Lymph % (Auto) 12.5 % 05/20/22 04:19 [place] % (Auto) 1.5 % 05/20/22 04:19 Eos % (Auto) 0.0 % 05/20/22 04:19 Baso % (Auto) 0.2 % 05/20/22 04:19 Neut # (Auto) 5.20 10^3/uL (1.8-7.7) 05/20/22 04:19 Lymph # (Auto) 0.8 10^3/uL (0.8-4.8) 05/20/22 04:19 [place] # (Auto) 0.1 10^3/uL (0.2-0.9) L 05/20/22 04:19 Eos # (Auto) 0.0 10^3/uL (0.0-0.8) 05/20/22 04:19 Baso # (Auto) 0.0 10^3/uL (0.0-0.1) 05/20/22 04:19 Nucleated RBC % (auto) 0 % 05/20/22 04:19 Nucleated RBCs # 0.0 /100WBC 05/20/22 04:19 D-Dimer 0.77 ug/mIFEU (0-0.59) H 05/17/22 16:28 Specimen Type Arterial 05/17/22 17:21 Sample Site Radial, right 05/17/22 17:21 ABG pH 7.33 (7.35-7.45) L 05/17/22 17:21 ABG pCO2 68.5 mmHg (35-45) H* 05/17/22 17:21 ABG pO2 120.0 mmHg (80.0-100.0) H 05/17/22 17:21 ABG HCO3 35.8 mmol/L (22-26) H 05/17/22 17:21 ABG Base Excess 6.9 mmol/L (-2.0-2.0) H 05/17/22 17:21 Femi Test Pos 05/17/22 17:21 Hematocrit 46.9 % (42-52) 05/17/22 17:21 Hgb O2 Saturation 97.1 % (95-100) 05/17/22 17:21 Carboxyhemoglobin 1.8 %THgb (0.4-20.1) 05/17/22 17:21 Methemoglobin 0.3 % (0.4-1.5) L 05/17/22 17:21 Total Hemoglobin 15.3 g/dL (14-18) 05/17/22 17:21 O2 Delivery Device Nc 05/17/22 17:21 O2 Liters/Min 4.5 % 05/17/22 17:21 FiO2 42.0 % 05/17/22 17:21 Editor Trade [employer] ID [place] 05/17/22 17:21 Sodium 136 mmol/L (136-145) 05/20/22 04:19 Potassium 5.2 mmol/L (3.5-5.1) H 05/20/22 04:19 Chloride 95 mmol/L (98-107) L 05/20/22 04:19 Carbon Dioxide 34 mmol/L (22-29) H 05/20/22 04:19 Anion Gap 12.2 (5-19) 05/20/22 04:19 BUN 18 mg/dL (8-23) 05/20/22 04:19 Creatinine 0.9 mg/dL (0.7-1.2) 05/20/22 04:19 GFR Calculation 83.9 mL/min (90-130) L 05/20/22 04:19 Glucose 390 mg/dL (65-115) H 05/20/22 04:19 POC Glucose 312 mg/dL (70-110) H 05/20/22 06:37 Calculated Osmolality 300 mOsm/kg (285-295) H 05/20/22 04:19 Lactic Acid 1.5 mmol/L (0.5-2.2) 05/17/22 16:28 Calcium 9.0 mg/dL (8.5-10.5) 05/20/22 04:19 Magnesium 1.9 mg/dL (1.7-2.3) 05/20/22 04:19 Total Bilirubin 0.6 mg/dL (0.15-1.2) 05/20/22 04:19 AST 20 U/L (0-40) 05/20/22 04:19 ALT 18 U/L (0-41) 05/20/22 04:19 Alkaline Phosphatase 58 U/L (40-130) 05/20/22 04:19 Troponin T Baseline 24 ng/L (0-15) H 05/17/22 16:28 Troponin T 120 Minute 21.44 ng/L (0-15) H 05/17/22 19:34 Delta Troponin T -2.56 ABS# (0-10) L 05/17/22 19:34 Troponin T Hi Sens 6Hr 23.01 ng/L (0-15) H 05/17/22 21:55 Troponin T Hi Sens 6Hr Delta -0.99 ng/L (0-12) L 05/17/22 21:55 NT-Pro-B Natriuret Pep 1949 pg/mL (0-125) H 05/17/22 16:28 Total Protein 7.2 g/dL (6.6-8.7) 05/20/22 04:19 Albumin 4.1 g/dL (3.5-5.2) 05/20/22 04:19 Globulin 3.1 g/dL (1.3-4.6) 05/20/22 04:19 TSH 3.85 uIU/mL (0.27-4.20) 05/17/22 16:28 Urine Color Yellow (Yellow) 05/17/22 18:15 Urine Appearance Clear (CLEAR) 05/17/22 18:15 Urine pH 6.5 (5-7) 05/17/22 18:15 Ur Specific [place] 1.015 (1.005-1.030) 05/17/22 18:15 Urine Protein Neg (Negative) 05/17/22 18:15 Urine Glucose (UA) 2+ (Normal) H 05/17/22 18:15 Urine Ketones 1+ (Negative) H 05/17/22 18:15 Urine Blood Neg (Negative) 05/17/22 18:15 Urine Nitrate Negative (Negative) 05/17/22 18:15 Urine Bilirubin Neg (Negative) 05/17/22 18:15 Urine Urobilinogen 4 mg/dL (Negative) H 05/17/22 18:15 Ur Leukocyte Esterase Negative (Negative) 05/17/22 18:15 Coronavirus 229E (PCR) Not detected (NOT DETECT) 05/17/22 16:38 SARS-CoV-2 (PCR) Not detected (NOT DETECT) 05/17/22 16:38 Vitals Last Vital Signs Temp 97.8 F 05/20/22 07:45 Pulse 84 05/20/22 08:00 Resp 14 05/20/22 07:45 BP 135/72 05/20/22 07:45 Pulse Ox 91 05/20/22 08:00 O2 Del Method 05/20/22 08:00 O2 Flow Rate 1.5 05/20/22 03:13 Discharge Plan Discharge Patient Disposition: Home Condition: Stable Prescriptions: New azithromycin 500 mg tablet 500 mg PO DAILY 4 Days Qty: 4 0RF potassium chloride 8 mEq capsule, extended release 8 meq PO DAILY 30 Days Qty: 30 0RF prednisone 20 mg tablet 40 mg PO DAILY 4 Days Qty: 8 0RF furosemide [Lasix] 40 mg tablet 40 mg PO DAILY 40 Days Qty: 30 0RF Continued (DME) CAM BOOT See Rx Instructions .Route .MEDSUPPLY Qty: 1 0RF Rx Instructions: As directed (DME) ASO brace See Rx Instructions .Route .MEDSUPPLY Qty: 1 0RF Rx Instructions: As directed citalopram 40 mg tablet 60 mg PO DAILY glipizide 5 mg tablet 5 mg PO BID pioglitazone 30 mg tablet 30 mg PO DAILY metoprolol tartrate 50 mg tablet 50 mg PO BID omeprazole 20 mg tablet,delayed release (DR/EC) 20 mg PO DAILY PRN (Reason: Acid Reflux) trazodone 100 mg tablet 100 mg PO DAILY Qty: 30 1RF metformin 500 mg tablet extended release 24 hr 1,000 mg PO BID 90 Days Qty: 360 0RF levothyroxine 88 mcg tablet 88 mcg PO DAILY Qty: 90 0RF Discharge Orders: Discharge Order (Routine); Ordered 05/20/22 Ordered By: Milena Peralta Other Ambulatory Orders: Basic Metabolic Panel (Routine) Timeframe: 1 Week Facility: [facility] - Location: Lab - Main Lab Ordered By: Milena Peralta Sleep Study W Sleep Stage (Routine) Timeframe: 1 Day Facility: [facility] - Location: [facility] Ordered By: Milena Peralta Referrals: Aditya Shaffer M.D [Physician] - 1 week Tesha Mariee MD [Primary Care Provider] - 4-7 days Discharge Diet: Cardiac and Diabetic Discharge Activity: Increase activity as tolerated and Oxygen as instructed Patient Instructions: Opioid Safety Activity Restrictions/Additional Instructions: You must have a sleep study as soon as possible as an outpatient. Please follow up with PCP at earliest convenience. Discharge Attestations Time Spent in Discharge Care*: greater than 30 min Quality Metrics Clinical Quality Measures [ No reported AMI, CVA or VTE this stay] Coding Level of Care Code 93196 Total time (in minutes) for Discharge: 40 Diagnoses Hypertension I10 Diabetes E11.9 Hypothyroidism E03.9 Symptom of congestive heart failure R09.89 Hypoxia R09.02 Thrombocytopenia D69.6
[2022-05-20 12:00] LABS: Glucose Point of Care 314 mg/dL (70-110)
== END 2022-05-20 14:55 | disposition home or self-care (01) | DRG 291 ==
LOC: ER 20:44 → MEDSURG 21:42
PROVIDERS: Admitting Provider Internal Medicine; Emergency Provider Emergency Medicine; PCP Family Medicine; Visit Provider Internal Medicine
DX: I11.0 Hypertensive heart disease with heart failure (principal); I50.31 Acute diastolic (congestive) heart failure; E03.9 Hypothyroidism, unspecified; J44.9 Chronic obstructive pulmonary disease, unspecified; Z79.84 Long term (current) use of oral hypoglycemic drugs; Z79.891 Long term (current) use of opiate analgesic; E11.9 Type 2 diabetes mellitus without complications; G47.00 Insomnia, unspecified; Z87.891 Personal history of nicotine dependence; D69.6 Thrombocytopenia, unspecified
CPT/HCPCS: 36415; 36416; 36600; 71045; 71275; 74177; 80053; 81003; 82805; 82962; 83605; 83735; 83880; 84443; 84484; 85025; 85378; 87635; 93005; 93306; 93308; 93970; 94760; 94762; 96372; 97161; 97162; 97530; 99285; J1650; J1815; J1940; J2920; J3475; Q9967

== ENCOUNTER → 2022-06-02 13:44 | Outpatient (BNVA) | payer MEDICARE, SELFPAY | PROVIDERS: PCP Family Medicine; Visit Provider Podiatrist Foot & Ankle Surgery | DX: M25.571 Pain in right ankle and joints of right foot (principal) | CPT/HCPCS: 73610; 99024 ==

== ENCOUNTER 2022-06-17 06:00 | Outpatient (RCR) | payer MEDICARE, SELFPAY | END 2022-07-13 23:59 | disposition home or self-care (01) | LOC: TPT 06:00 | PROVIDERS: PCP Family Medicine; Visit Provider Podiatrist Foot & Ankle Surgery | DX: S82.844D Nondisplaced bimalleolar fracture of right lower leg, subsequent encounter for closed fracture with routine healing (principal); X58.XXXD Exposure to other specified factors, subsequent encounter | CPT/HCPCS: 97110 ==

== ENCOUNTER → 2022-06-26 10:38 | Outpatient (BNVA) | payer MEDICARE, SELFPAY | PROVIDERS: PCP Family Medicine; Visit Provider Family Medicine | DX: E11.9 Type 2 diabetes mellitus without complications (principal); E03.9 Hypothyroidism, unspecified; G47.30 Sleep apnea, unspecified; I11.0 Hypertensive heart disease with heart failure; I50.30 Unspecified diastolic (congestive) heart failure; K21.9 Gastro-esophageal reflux disease without esophagitis | CPT/HCPCS: 80053; 80061; 83036; 84443; 85025 ==

== ENCOUNTER → 2022-07-13 10:36 | Outpatient (BNVA) | payer MEDICARE, SELFPAY | PROVIDERS: PCP Family Medicine; Visit Provider Internal Medicine Cardiovascular Disease | DX: I11.0 Hypertensive heart disease with heart failure (principal); I50.30 Unspecified diastolic (congestive) heart failure; E11.9 Type 2 diabetes mellitus without complications; E03.9 Hypothyroidism, unspecified; Z87.891 Personal history of nicotine dependence; Z79.84 Long term (current) use of oral hypoglycemic drugs | CPT/HCPCS: 99204 ==

== ENCOUNTER 2022-08-28 07:47 | Outpatient (CLI) | payer MEDICARE, SELFPAY ==
[2022-08-28 08:17] VITALS: BMI 34.2
--- NOTE | 2022-08-28 08:28 | ECG_ITS ---
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 Interpretive Statements NAME OF STUDY: EXERCISE SESTAMIBI STRESS TEST INDICATION: [Shortness of Breath, ] EXERCISE DATA: The patient was exercised by Ben protocol. Baseline heart rate was 96 beats per minute. Baseline blood pressure was 162/102 millimeters of mercury. Target heart rate was denied beats per minute. Maximum heart rate achieved was 141, which was 109% of the target heart rate. Maximum blood pressure was 204/119 millimeters of mercury. Total exercise time was 2 minutes 57 seconds. Maximum METs achieved was 4.6. The reason for ending the test was maximal effort achieved. The patient complained of shortness of breath during the stress test, which then resolved at the end of the test. ELECTROCARDIOGRAM: BASELINE: Showed sinus rhythm, normal axis, no significant ST-T changes at the baseline noted. [] EXERCISE: At the peak exercise level, [] No significant ST-T changes suggestive of ischemia noted. [] RECOVERY: During the recovery period, heart rate dropped appropriately. No significant ST-T changes in the recovery suggestive of ischemia noted. [] CONCLUSION: 1. Exercise capacity poor 2. Heart rate response was appropriate 3. Blood pressure response was hypertensive 4. Symptoms not suggestive of ischemia. 5. Electrocardiogram portion of the stress test was not suggestive of ischemia. 6. Nuclear scan will be documented separately. Electronically Signed On 09-08-2022 14:41:14 CDT by Aditya Shaffer M.D. [id number]
--- NOTE | 2022-08-28 08:28 | NMCV_ITS ---
NM keagan perf SPECT r/s* [id number] Flako Petty Age: 67 Gender: M : 1955 Exam Date: 08/28/2022 08:28 Ordering Phys: Neil David MD ([email or web address]) Technologist: CAPRI Jamil Exam Location: [facility] Indications: CORONARY ANGIOPLASTY STATUS, HYPERTENSION STRESS TEST Please see separate stress test report in [facility] for full findings IMAGE PROTOCOL Rest/Stress 1 Exercise Day Radiopharmaceutical Dose (mCi) Administration Site Administered by Rest: Tc-99m 11.0 IV CAPRI Prabhakar Sestamisalina Stress:Tc-99m 32.8 IV CAPRI Prabhakar Sestamisalina Rest: 28-Aug-2022 60 Discovery 630 Stress: 28-Aug-2022 30 Discovery 630 Radiopharmaceutical was injected at 86 % maximum heart rate. Images obtained in supine and prone position. SPECT RESULTS Technical Quality: Excellent Raw Data Analysis: Normal Image Corrections: No attenuation or motion correction applied Summed Stress Score: 0 Summed Rest Score: 0 Summed Difference Score: 0 PERFUSION FINDINGS SPECT images demonstrate homogeneous tracer distribution throughout the myocardium. FUNCTIONAL RESULTS (calculated via Gated SPECT) Stress Image LV EF (%): 66 Stress EDV (mL):87 TID: 1 Stress ESV (mL):30 FUNCTIONAL FINDINGS: There is normal left ventricular systolic function. IMPRESSIONS 1. Normal myocardial perfusion imaging with no evidence of ischemia 2. LV systolic function is normal Aditya Shaffer MD (Electronically Signed) Final Date: 31 August 2022 15:10 S
[2022-08-28 10:10] VITALS: BP 169/120; PULSE 99
== END 2022-08-28 07:48 | disposition home or self-care (01) ==
LOC: CDL 07:47
PROVIDERS: PCP Family Medicine; Visit Provider Internal Medicine Cardiovascular Disease
DX: I50.9 Heart failure, unspecified (principal); R06.02 Shortness of breath
CPT/HCPCS: 36415; 78452; 93017; A9500

== ENCOUNTER → 2022-10-05 10:57 | Outpatient (BNVA) | payer MEDICARE, SELFPAY | PROVIDERS: PCP Family Medicine; Visit Provider Internal Medicine Cardiovascular Disease | DX: I11.0 Hypertensive heart disease with heart failure (principal); I50.30 Unspecified diastolic (congestive) heart failure; G47.30 Sleep apnea, unspecified; E11.9 Type 2 diabetes mellitus without complications; Z79.84 Long term (current) use of oral hypoglycemic drugs; Z87.891 Personal history of nicotine dependence | CPT/HCPCS: 99213 ==

== ENCOUNTER 2023-09-06 09:26 | Inpatient (IN) | payer MEDICARE, SELFPAY ==
[2023-09-06] VITALS (25 sets, daily range): BP systolic 117–177; BP diastolic 69–104; PULSE 62–86; RESP 12–25; TEMP 37.1–37.6; O2SAT 85–100; BMI 35.7; BMI 35.2
--- NOTE | 2023-09-06 09:49 | ED_ITS ---
HPI - SOB/Dyspnea 2 General: Chief Complaint: Weakness Stated Complaint: slurred speech, trouble walking Time Seen by Provider: 09/06/23 09:35 Source: patient Mode of arrival: ambulatory History of Present Illness: HPI Narrative: 68-year-old male presents to the emergen cy room with complaints of shortness of breath and cough. Initially he was listed as slurred speech and trouble walking and as of being a neurologic deficit he was fine last night when he went to bed he gets up several times at night around 3 in the morning said he got up he was a little bit confused and disoriented seem to be slurring his words and difficulty with ambulating that did improved and is fully resolved now. On arrival here he is hypoxic with room air sats 85 to 88% when I came in to see him he was on 2 L satting in the mid s we trialed him off to get a baseline ABG and he quickly desatted to 8788% on room air he is denying any chest pain he does complaining of a lot of bloating with his abdomen. Some mild abdominal discomfort. Slight swelling in his lower extremities. He has a known history of congestive heart failure and hypertensive heart disease. Hospitalized last year with acute hypercapnic respiratory failure. Last echo on the chart shows an ejection fraction of 60% there was no evidence of pulmonary hypertension. MD elicited complaint: shortness of breath and cough Associated symptoms: Deny abdominal pain, chest pain or fever(s) Review of Systems 2 Const: Denies: fever(s) or chills Card: Denies: chest pain Resp: Denies: dyspnea GI: Denies: abdominal pain : Denies: dysuria, urinary frequency or urinary urgency Musc: Denies: neck pain or back pain Skin/Breast: Denies: rash PFSH ED 2 PFSH: Medical History Hypertension Diabetes Hypothyroidism Former smoker Insomnia Surgical History H/O colonoscopy 2020 NORMAL Family History Brother , LIVER Cancer Mother Cancer OVARIAN Sister , LUNG METS TO BRAIN No problems noted. Father , DUE TO ANEURYSM Hypertension Social History Smoking and tobacco/nicotine status: former use of tobacco/nicotine Quit status (tobacco/nicotine): has quit using Year quit tobacco: 2013 Household members: spouse Marital status: Current occupational status: retired Current occupation: [employer] FOR 21 YEARS Current gender identity: Male Physical Exam 2 Const: COMMON NORMALS: no acute distress GENERAL APPEARANCE: cooperative and comfortable ORIENTATION/CONSCIOUSNESS: Yes awake, Yes oriented to person, Yes oriented to place and Yes oriented to time HENMT: COMMON NORMALS: normocephalic, atraumatic and hearing grossly normal bilaterally HEAD & SCALP: normocephalic and atraumatic Resp: COMMON NORMALS: normal respiratory effort, No retractions, No use of accessory muscles and clear to auscultation bilaterally AUSCULTATION: clear to auscultation bilaterally Cardio: COMMON NORMALS: regular rate, regular rhythm and No murmurs present (Cardio) RATE: regular rate RHYTHM: regular rhythm GI: COMMON NORMALS: Soft to palpation and No hepatosplenomegaly present A USCULTATION: Yes normoactive bowel sounds PALPATION: Yes Soft to palpation, No Tenderness to palpation present (GI), No Guarding due to palpation present (GI) and Yes No hepatosplenomegaly present Extremity: COMMON NORMALS: normal to inspection, capillary refill normal, no clubbing, cyanosis or edema, no calf tenderness and no pedal edema Neuro: SENSORIUM/ORIENTATION: Yes oriented to person, Yes oriented to place and Yes oriented to time Skin: COMMON NORMALS: no rashes or lesions noted GENERAL SKIN EXAM: no rashes or lesions noted Course 2 Vital Signs: Vital signs: Vital Signs Temperature 98.7 F 09/06/23 09:38 Pulse Rate 86 09/06/23 16:45 Respiratory Rate 18 09/06/23 16:45 Blood Pressure 160/98 09/06/23 16:45 Pulse Oximetry 93 09/06/23 16:45 Oxygen Delivery Me thod Nasal Cannula 09/06/23 16:45 Oxygen Flow Rate 3 09/06/23 16:45 Fraction of Inspir ed Oxygen 40 09/06/23 16:30 MDM - SOB/Dyspnea Medical Decision Making Patient has hypercapnia along with a right middle lobe pneumonia. CT did not show evidence of PE but there is some suspicious nodules that will need further follow-up. He does have a history of COPD as well which is adding to this. Will admit started on ceftriaxone and Zithromax. Discussed with hospitalist orders written Medical Records I reviewed the patient's medical records. Lab Data I reviewed the patient's lab results. 09/06/23 09:43 09/06/23 09:43 Labs/Radiology: Radiology Impressions Head CT 09/06/23 09:51 IMPRESSION: 1. No acute intracranial findings. 2. Additional details as above. Chest X-Ray 09/06/23 10:58 IMPRESSION: 1. Consolidating infiltrate in the RIGHT lower lung zone consistent with pneumonia. 2. Cardiomegaly. Chest CTA 09/06/23 11:04 IMPRESSION: 1. Limitations result in suboptimal opacification and heterogeneity of the pulmonary arteries. There is no obvious larger central pulmonary embolism, but a smaller segmental or subsegmental PE in either lung can not be excluded on the basis of this examination. 2. Gepkldbs-ut-ezpra amount of new abnormality in the right lung is probably pneumonia, possibly atypical. However, the nodular component discussed above raises the possibility of malignancy. Recommend CT Chest at 3-6 months. Subsequent management based on the most suspicious nodule(s). (Reference: Miguel). 3. New mild cardiomegaly. No evidence of right heart strain. 4. Additional details as above. REFERENCES: Miguel Cortez, et al. Guidelines for Management of Incidental Pulmonary Nodules Detected on CT Images: From the Fleischner Society 2017. Radiology. 2017;284(1):228-243. Laboratory Results WBC 10.80 10^3/uL (3.29-11.43) 09/06/23 09:43 RBC 6.49 10^6/uL (3.85-5.65) H 09/06/23 09:43 Hgb 18.10 g/dL (11.27-16.99) H 09/06/23 09:43 Hct 56.6 % (37-53) H 09/06/23 09:43 MCV 87.2 fl (82-101) 09/06/23 09:43 MCH 27.9 pg (27-33) 09/06/23 09:43 MCHC 32.0 g/dL (30-55) 09/06/23 09:43 RDW 13.6 % (12.1-15.1) 09/06/23 09:43 Plt Count 124 10^3/cmm (157-399) L 09/06/23 09:43 MPV 12.4 fL (7.4-10.4) H 09/06/23 09:43 Neut % (Auto) 85.3 % 09/06/23 09:43 Lymph % (Auto) 6.3 % 09/06/23 09:43 [place] % (Auto) 7.2 % 09/06/23 09:43 Eos % (Auto) 0.5 % 09/06/23 09:43 Baso % (Auto) 0.3 % 09/06/23 09:43 Neut # (Auto) 9.22 10^3/uL (1.8-7.7) H 09/06/23 09:43 Lymph # (Auto) 0.7 10^3/uL (0.8-4.8) L 09/06/23 09:43 [place] # (Auto) 0.8 10^3/uL (0.2-0.9) 09/06/23 09:43 Eos # (Auto) 0.1 10^3/uL (0.0-0.8) 09/06/23 09:43 Baso # (Auto) 0.0 10^3/uL (0.0-0.1) 09/06/23 09:43 Nucleated RBC % (auto) 0 % 09/06/23 09:43 Nucleated RBCs # 0.0 /100WBC 09/06/23 09:43 Specimen Type Arterial 09/06/23 13:40 Sample Site Radial, right 09/06/23 13:40 ABG pH 7.32 (7.35-7.45) L 09/06/23 13:40 ABG pCO2 62.8 mmHg (35-45) H* 09/06/23 13:40 ABG pO2 68.3 mmHg (80.0-100.0) L 09/06/23 13:40 ABG PO2/FiO2 Ratio 0 09/06/23 09:46 ABG HCO3 31.9 mmol/L (22-26) H 09/06/23 13:40 ABG O2 Saturation 79.4 09/06/23 09:46 ABG Base Excess 3.3 mmol/L (-2.0-2.0) H 09/06/23 13:40 Femi Test Pos 09/06/23 13:40 A-a O2 Gradient 4.7 mmHg (5-10) L 09/06/23 09:46 Hematocrit 53.3 % (42-52) H 09/06/23 13:40 Hgb O2 Saturation 77.7 % (95-100) L 09/06/23 09:46 Carboxyhemoglobin 1.8 %THgb (0.4-20.1) 09/06/23 09:46 Methemoglobin 0.4 % (0.4-1.5) 09/06/23 09:46 Total Hemoglobin 17.7 g/dL (14-18) 09/06/23 09:46 Sodium 140.0 mmol/L (131-143) 09/06/23 09:46 Potassium 4.2 mmol/L (3.5-5.0) 09/06/23 09:46 Glucose 202.0 mg/dL (70-115) H 09/06/23 09:46 Ionized Calcium 1.1 mmol/L (1.1-1.4) 09/06/23 09:46 O2 Delivery Device Nc 09/06/23 13:40 O2 Liters/Min 3.0 % 09/06/23 13:40 FiO2 21.0 % 09/06/23 09:46 Transcript Evaluator ID Wal[place] 09/06/23 13:40 Sodium 142 mmol/L (136-145) 09/06/23 09:43 Potassium 4.7 mmol/L (3.5-5.1) 09/06/23 09:43 Chloride 100 mmol/L (98-107) 09/06/23 09:43 Carbon Dioxide 30 mmol/L (22-29) H 09/06/23 09:43 Anion Gap 16.7 (5-19) 09/06/23 09:43 BUN 14 mg/dL (8-23) 09/06/23 09:43 Creatinine 0.9 mg/dL (0.7-1.2) 09/06/23 09:43 GFR Calculation 83.7 mL/min (90-130) L 09/06/23 09:43 Glucose 212 mg/dL (65-115) H 09/06/23 09:43 Calculated Osmolality 301 mOsm/kg (285-295) H 09/06/23 09:43 Lactic Acid 1.2 mmol/L (0.5-2.2) 09/06/23 09:43 Calcium 8.9 mg/dL (8.5-10.5) 09/06/23 09:43 Total Bilirubin 1.0 mg/dL (0.15-1.2) 09/06/23 09:43 AST 20 U/L (0-40) 09/06/23 09:43 ALT 17 U/L (0-41) 09/06/23 09:43 Alkaline Phosphatase 46 U/L (40-130) 09/06/23 09:43 Troponin T Baseline 29 ng/L (0-15) H 09/06/23 09:43 Troponin T 120 Minute 25.73 ng/L (0-15) H 09/06/23 11:41 Delta Troponin T -3.27 ABS# (0-10) L 09/06/23 11:41 C-Reactive Protein 3.8 mg/L (0.0-4.9) 09/06/23 09:43 NT-Pro-B Natriuret Pep 1538 pg/mL (0-125) H 09/06/23 09:43 Total Protein 7.2 g/dL (6.6-8.7) 09/06/23 09:43 Albumin 4.5 g/dL (3.5-5.2) 09/06/23 09:43 Globulin 2.7 g/dL (1.3-4.6) 09/06/23 09:43 Lipase 55 U/L (13-60) 09/06/23 09:43 Procalcitonin 0.09 ng/mL (0-0.5) 09/06/23 09:43 TSH 2.50 uIU/mL (0.27-4.20) 09/06/23 09:43 Urine Color Yellow (Yellow) 09/06/23 12:23 Urine Appearance Clear (CLEAR) 09/06/23 12:23 Urine pH 6.5 (5-7) 09/06/23 12:23 Ur Specific [place] 1.015 (1.005-1.030) 09/06/23 12:23 Urine Protein Neg (Negative) 09/06/23 12:23 Urine Glucose (UA) 4+ (Normal) H 09/06/23 12:23 Urine Ketones 1+ (Negative) H 09/06/23 12:23 Urine Blood Neg (Negative) 09/06/23 12:23 Urine Nitrate Negative (Negative) 09/06/23 12:23 Urine Bilirubin Neg (Negative) 09/06/23 12:23 Urine Urobilinogen 1 mg/dL (Negative) H 09/06/23 12:23 Ur Leukocyte Esterase Negative (Negative) 09/06/23 12:23 All radiology interpretation(s) finalized by discharge Discharge Plan Discharge Patient Disposition: Admitted As Inpatient Admit Provider: Yuri Neal Clinical Impression: Acute respiratory failure with hypoxia and hypercapnia, Pneumonia, Diastolic heart failure Condition: Stable Coding Level of Care Code ED Expansion Joint Finisher for Lucien Armstrong
--- NOTE | 2023-09-06 09:51 | CTR_ITS ---
PROCEDURE INFORMATION: Exam: CT Head Without Contrast Exam date and time: 09/06/2023 11:08 AM Age: 68 years old Clinical indication: Altered mental status/memory loss and dizziness; Additional info: AMS TECHNIQUE: Imaging protocol: Computed tomography of the head without contrast. Radiation optimization: All CT scans at this facility use at least one of these dose optimization techniques: automated exposure control; mA and/or kV adjustment per patient size (includes targeted exams where dose is matched to clinical indication); or iterative reconstruction. COMPARISON: No relevant prior studies available. RADIATION DOSE METRICS: Total DLP (mGy-cm): 1141.58 FINDINGS: Brain: Mild, diffuse atrophy of the brain.There is ill-defined, fairly symmetric low-density within the cerebral deep white matter bilaterally which is likely the sequela of chronic ischemic change due to small vessel disease. Chronic lacunar infarct left basal ganglia region. No CT evidence of mass effect, intracranial hemorrhage, or acute infarct. Otherwise, unremarkable. Cerebral ventricles: No ventriculomegaly. Paranasal sinuses: Moderate right sphenoid sinusitis. Otherwise, unremarkable. Mastoid air cells: Visualized mastoid air cells are well aerated. Bones: Unremarkable. No acute fracture. Soft tissues: Unremarkable. CT/CT head wo con* [id number] IMPRESSION: 1. No acute intracranial findings. 2. Additional details as above.
--- NOTE | 2023-09-06 09:55 | ECG_ITS ---
[facility] Test Date: 2023-09-06 Pat Name: Flako Petty Department: Room: Gender: Male [employer]: : 1955 Requested By: Blas Agee Order Number: [id number] Narinder MD: Hitesh Cavanaugh M.D. Measurements Intervals [place] Rate: 80 P: 49 OK: 162 QRS: 21 QRSD: 90 T: 30 QT: 389 QTc: 451 Interpretive Statements SINUS RHYTHM POSSIBLE LEFT ATRIAL ENLARGEMENT [-0.1mV P-WAVE IN V1/V2] Compared to ECG 05/17/2022 18:40:26 Ventricular premature complex(es) no longer present Electronically Signed On 09-07-2023 13:37:06 CDT by Hitesh Cavanaugh M.D. [email or web address]
[2023-09-06 09:57] LABS: ABG PH Result 7.36 (7.35-7.45); Alveolar-Arterial Oxygen Gradi 4.7 mmHg (5-10); Arterial Blood Gas Hematocrit 54.3 % (42-52); Base Excess ABG 5.9 mmol/L (-2.0-2.0); Blood Gas Allen Test Pos; Blood Gas Operator Identificat WALCI; Blood Gas Sample Site Radial, right; Blood Gas Sample Type Arterial; Carboxyhemoglobin 1.8 %THgb (0.4-20.1); HGB O2 Sat 77.7 % (95-100); Ionized Calcium Level - ABG 1.1 mmol/L (1.1-1.4); Methemoglobin 0.4 % (0.4-1.5); Oxygen Device ROOM AIR; Oxygen Saturation ABG 79.4; PO2 ABG 42.5 mmHg (80.0-100.0); PO2 FiO2 Ratio Arterial Blood 0; Potassium Level - ABG 4.2 mmol/L (3.5-5.0); Total Hemoglobin 17.7 g/dL (14-18)
[2023-09-06 09:58] LABS: ABG PCO2 60.6 mmHg (35-45)
[2023-09-06] MEDS: dexamethasone 10 mg/mL INJ IM (10:01)
[2023-09-06 10:18] LABS: Lactic Sepsis W/Reflex 1.2 mmol/L (0.5-2.2); Troponin(5th) Baseline 29 ng/L (0-15)
[2023-09-06 10:25] LABS: Lipase 55 U/L (13-60); NT Pro B Type Natriuretic Pept 1538 pg/mL (0-125)
--- NOTE | 2023-09-06 10:58 | XR_ITS ---
WS: [id number] Exam: XR chest 1V portable [id number] Date/Time of Exam: 09/06/2023 10:58 AM Reason For Exam: dyspnea/cough Comparison 05/17/2022. There is consolidating infiltrate in the RIGHT lower lung zone. Remaining lung martinez are clear. No p neumothorax or pleural effusion. Cardiac enlargement unchanged. The mediastinum is normal in contour. Bony structures are intact. XR/XR chest 1V portable [id number] IMPRESSION: 1. Consolidating infiltrate in the RIGHT lower lung zone consistent with pneumo jhonny. 2. Cardiomegaly.
--- NOTE | 2023-09-06 11:04 | CTR_ITS ---
PROCEDURE INFORMATION: Exam: CTA Chest With Contrast Exam date and time: 09/06/2023 1:37 PM Age: 68 years old Clinical indication: Abnormal findings; Abnormal radiologic exam of lung or chest; Additional info: Abnomral cxr, chest pain TECHNIQUE: Imaging protocol: Computed tomographic angiography of the chest with contrast. Exam focused on the arteries. 3D rendering (Not supervised by radiologist): MIP and/or 3D reconstructed images were created by the technologist. Radiation optimization: All CT scans at this facility use at least one of these dose optimization techniques: automated exposure control; mA and/or kV adjustment per patient size (includes targeted exams where dose is matched to clinical indication); or iterative reconstruction. Contrast material: OMNI 350; Contrast volume: 85 ml; Contrast route: INTRAVENOUS (IV); COMPARISON: CT angio chest w abd pel w con 05/17/2022 7:49 PM RADIATION DOSE METRICS: Total DLP (mGy-cm): 585.68 FINDINGS: Limitations: Study is suboptimal due to excessive motion artifact. Pulmonary arteries: Limitations result in suboptimal opacification and heterogeneity of the pulmonary arteries. There is no obvious larger central pulmonary embolism, but a smaller segmental or subsegmental PE in either lung can not be excluded on the basis of this examination. Pulmonary arteries are not dilated. Aorta: Unremarkable. No aortic aneurysm. No aortic dissection. Lungs: Unchanged small amount of scarring and/or subsegmental atelectasis dependently in both upper lobes. Kfbkgdpo-zx-fbvlm amount of new ground-glass, confluence, patchy, and nodular opacity in all lobes of the right lung, mostly in the right middle lobe. This is probably pneumonia, possibly atypical. However, malignancy is possible as there are multiple subsolid nodular noncalcified components measuring less than 1 cm mostly. Otherwise, unremarkable. Pleural spaces: Unremarkable. No pneumothorax. No pleural effusion. Heart: New mild cardiomegaly. No evidence of right heart strain. The right ventricular to left ventricular ratio is 0.95. Coronary arteries: Unchanged small amount of coronary artery calcification. Lymph nodes: Unremarkable. No enlarged lymph nodes. Bones/joints: Unchanged mild multilevel spondylosis. Otherwise, unremarkable. Soft tissues: Otherwise, unremarkable visualized body wall. Otherwise, unremarkable soft tissues. CT/CT angio chest PE protcl [id number] IMPRESSION: 1. Limitations result in suboptimal opacification and heterogeneity of the pulmonary arteries. There is no obvious larger central pulmonary embolism, but a smaller segmental or subsegmental PE in either lung can not be excluded on the basis of this examination. 2. Yhehgrfh-ub-zfvqd amount of new abnormality in the right lung is probably pneumonia, possibly atypical. However, the nodular component discussed above raises the possibility of malignancy. Recommend CT Chest at 3-6 months. Subsequent management based on the most suspicious nodule(s). (Reference: Miguel). 3. New mild cardiomegaly. No evidence of right heart strain. 4. Additional details as above. REFERENCES: Miguel Cortez, et al. Guidelines for Management of Incidental Pulmonary Nodules Detected on CT Images: From the Fleischner Society 2017. Radiology. 2017;284(1):228-243.
[2023-09-06 11:17] LABS: Basophils % 0.3 %; Eosinophils # 0.1 10^3/uL (0.0-0.8); Eosinophils % 0.5 %; Hematocrit 56.6 % (37-53); Lymphocytes # 0.7 10^3/uL (0.8-4.8); Lymphocytes % 6.3 %; Mean Corpuscular Hemoglobin 27.9 pg (27-33); Mean Corpuscular Volume 87.2 fl (82-101); Mean Platelet Volume 12.4 fL (7.4-10.4); Monocytes # 0.8 10^3/uL (0.2-0.9); Monocytes % 7.2 %; Neutrophils # 9.22 10^3/uL (1.8-7.7); Neutrophils % 85.3 %; Nucleated Red Blood Cells % 0 %; Platelet Count 124 10^3/cmm (157-399); Red Blood Count 6.49 10^6/uL (3.85-5.65); Red Cell Distribution Width 13.6 % (12.1-15.1)
--- NOTE | 2023-09-06 11:55 | ECG_ITS ---
[facility] Test Date: 2023-09-06 Pat Name: Flako Petty Department: Room: Gender: Male [employer]: : 1955 Requested By: Blas Agee Order Number: [id number] Reading MD: Hitesh Cavanaugh M.D. Measurements Intervals [place] Rate: 71 P: 53 GA: 167 QRS: 18 QRSD: 86 T: 30 QT: 402 QTc: 439 Interpretive Statements SINUS RHYTHM POSSIBLE LEFT ATRIAL ENLARGEMENT [-0.1mV P-WAVE IN V1/V2] Compared to ECG 09/06/2023 10:05:55 No significant changes Electronically Signed On 09-07-2023 13:58:51 CDT by Hitesh Cavanaugh M.D. [email or web address]
[2023-09-06 12:06] LABS: Troponin 5 2HR 25.73 ng/L (0-15)
[2023-09-06 12:08] LABS: Troponin 5 2HR Delta -3.27 ABS# (0-10)
[2023-09-06 12:32] LABS: Add Urine Microscopic? NO; Charge for UA Resulting for Rev
[2023-09-06 12:45] LABS: Bilirubin Urine Neg (Negative); Blood Urine Neg (Negative); Glucose Urine UA 4+ (Normal); Ketones Urine 1+ (Negative); Leukocyte Esterase Urine Negative (Negative); Nitrate Urine Negative (Negative); Protein Urine Neg (Negative); Specific Gravity, Urine 1.015 (1.005-1.030); Urine Appearance Clear (CLEAR); Urine Color Yellow (Yellow); Urobilinogen Urine 1 mg/dL (Negative); pH Urine 6.5 (5-7)
[2023-09-06 12:53] LABS: Alanine Aminotransferase 17 U/L (0-41); Albumin Level 4.5 g/dL (3.5-5.2); Alkaline Phosphatase 46 U/L (40-130); Anion Gap 16.7 (5-19); Aspartate Amino Transferase 20 U/L (0-40); Blood Urea Nitrogen 14 mg/dL (8-23); Calcium 8.9 mg/dL (8.5-10.5); Carbon Dioxide 30 mmol/L (22-29); Chloride 100 mmol/L (98-107); Creatinine Clr Calc Pharmacy 91.6838; Globulin 2.7 g/dL (1.3-4.6); Glomerular Filtration Rate 83.7 mL/min (90-130); Glucose 212 mg/dL (65-115); Osmolality Calculated 301 mOsm/kg (285-295); Potassium 4.7 mmol/L (3.5-5.1); Sodium 142 mmol/L (136-145); Total Protein 7.2 g/dL (6.6-8.7)
[2023-09-06] MEDS: iohexol 350 mg/mL 500 mL Btl (per mL) IV (13:47)
[2023-09-06 13:51] LABS: ABG PH Result 7.32 (7.35-7.45); Arterial Blood Gas Hematocrit 53.3 % (42-52); Base Excess ABG 3.3 mmol/L (-2.0-2.0); Blood Gas Allen Test Pos; Blood Gas Operator Identificat WALCI; Blood Gas Sample Site Radial, right; Blood Gas Sample Type Arterial; HCO3 ABG 31.9 mmol/L (22-26); Oxygen Device NC; PO2 ABG 68.3 mmHg (80.0-100.0)
[2023-09-06 13:52] LABS: ABG PCO2 62.8 mmHg (35-45)
--- NOTE | 2023-09-06 14:22 | PC.NURSE ---
DELAY IN ADMINISTERING ANTIBIOTICS DUE TO NEEDING BLOOD CULTURES DRAWN FIRST.
--- NOTE | 2023-09-06 14:50 | P.HP_ITS ---
Providers/Chief Complaint 2 Admitting Physician: Yuri Neal MD Primary Care Provider: Tesha Mariee MD Chief Complaint: slurred speech, trouble walking History of Present Illness Flako Petty is a 68 year old male with a past medical history of undiagnosed sleep apnea, history of hypertension, diabetes, hypothyroidism, former smoker, history of prior admission for respiratory failure, who presents [facility] due to altered mental status, concerns for CVA, shortness of breath, respiratory failure. Currently patient is alert to person, to place, not to time, he can follow commands, no facial droop, no slurring of words, currently on BiPAP, he was able to just talk with him through the BiPAP mask, he has good strength in upper extremities bilaterally and lower extremities, he gives me the thumbs up that he is doing well, in mild respiratory distress, nasal flaring intercostal retractions, suprasternal retractions, nasal flaring, tachypnea, or 40% BiPAP, patient's is at bedside. Patient's tells me that since this morning he has been doing significant better this morning he was able to talk to her, now he is doing significantly better, much more alert awake, more conversive, does have intermittent episodes of confusion. According to patient's patient's been complaining of shortness of breath for some period of time, he does have a diagnosis, he has not smoked for the last 10 years no drug use. This morning he when she woke him up around 3 AM he was very confused, slurring his words, generalized weakness. His symptomatology persisted into the morning, very confused, slurring her words, generalized weakness she thought he was having a stroke, so he was brought to the emergency room due to concerns for CVA. In the emergency room his head CT was within normal limits, found to have hypercarbic respiratory failure placed on BiPAP, NIH stroke scale according to ER provider was within normal limits. During my examination, NIH stroke scale is difficult to assess at times due to his mild respiratory failure but he follows all commands, any stroke scale 0. His repeat ABG shows worsening hypercarbia, however according to patient's at bedside his mentation has significantly improved, currently patient is quite alert and awake, his complaint is low back pain he is quite fidgety and restless in bed, we discussed the possibility of intubation if his hypercarbia worsens, discussed risk and benefits of intubation, they voiced understanding, all questions answered, agreed to proceed if required, will monitor his CO2 closely monitor his respiratory status closely in ICU, he is a full code. Patient's current biggest complaint is low back pain, and his restlessness?in bed, he wants to get up out of bed, discussed issues of getting up out of bed, given his respiratory failure, morbidity mortality associated, will place him on morphine as needed for back pain, and Precedex for restlessness and agitation Review of Systems 2 Const: Denies: fever(s) Eyes: Denies: change in vision Card: Denies: chest pain Resp: Reports: dyspnea and non-productive cough : Denies: flank pain Neuro: Reports: headache(s) Medications/Allergies Home Medications Medication Instructions Recorded Confirmed Last Taken Type glipizide 5 mg tablet 5 mg PO BID 02/16/22 09/06/23 09/05/23 History CAM BOOT #1 ea 03/31/22 09/06/23 Unknown Rx ASO brace #1 ea 04/14/22 09/06/23 Unknown Rx blood sugar diagnostic (Blood #100 ea 07/26/22 09/06/23 Unknown Rx Glucose Test strips) blood-glucose meter (Blood Glucose #1 ea 07/26/22 09/06/23 Unknown Rx Monitoring kit) lancets 31 gauge #100 ea 07/26/22 09/06/23 Unknown Rx free style peter #1 ea 07/28/22 09/06/23 Unknown Rx metformin 500 mg tablet,extended 500 mg PO BID 3 months #180 tabs 01/26/23 09/06/23 09/05/23 Rx release 24 hr omeprazole 20 mg tablet,delayed 20 mg PO DAILY PRN Acid Reflux #30 04/12/23 09/06/23 Unknown Rx release tabs metoprolol tartrate 50 mg tablet 50 mg PO BID #60 tabs 06/15/23 09/06/23 09/05/23 Rx fluoxetine 40 mg capsule 40 mg PO DAILY #30 caps 06/28/23 09/06/23 09/05/23 Rx pioglitazone 30 mg tablet 30 mg PO DAILY #30 tabs 07/03/23 09/06/23 09/05/23 Rx empagliflozin 25 mg tablet 25 mg PO QAM 09/06/23 09/06/2309/04/24 History (Jardiance) levothyroxine 100 mcg tablet 100 mcg PO DAILY 09/06/23 09/06/23 09/05/23 History trazodone 100 mg tablet 100 mg PO BEDTIME 09/06/23 09/06/23 09/05/23 History Allergies Allergy/AdvReac Type Severity Reaction Status Date / Time No Known Allergies Allergy Verified 10/05/22 11:05 PFSH Acute 2 PFSH: Medical History Hypertension Diabetes Hypothyroidism Former smoker Insomnia Surgical History H/O colonoscopy 2020 NORMAL Family History Brother , LIVER Cancer Mother Cancer OVARIAN Sister , LUNG METS TO BRAIN No problems noted. 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 Current gender identity: Male Vitals/I&O/Wt Last Vital Signs Temp 98.7 F 09/06/23 09:38 Pulse 71 09/06/23 13:57 Resp 15 09/06/23 13:00 BP 150/69 09/06/23 14:00 Pulse Ox 92 09/06/23 14:00 O2 Del Method BiPAP 09/06/23 13:00 FiO2 40 09/06/23 13:57 Weight last 48 hrs Weight 106.594 kg Physical Exam 2 Const: COMMON NORMALS: no acute distress ORIENTATION/CONSCIOUSNESS: Yes awake, Yes oriented to person and Yes oriented to place; not oriented to time OTHER: At times patient does become confused, agitated, tries to get up out of bed HENMT: COMMON NORMALS: normocephalic HEAD & SCALP: normocephalic Eye: COMMON NORMALS: Equal, round and reactive pupils present and EOMs intact bilaterally Neck/C-Spine: COMMON NORMALS: no JVD Lymph: LYMPHATIC: no lymphadenopathy noted Chest: COMMONS NORMALS: normal inspection of the chest Resp: EFFORT & INSPECTION: Yes tachypneic, Yes retractions and Yes uses accessory muscles AUSCULTATION: crackles and wheezes OTHER: Mild respiratory distress, with intercostal retractions, nasal flaring, suprasternal retractions, tachypnea Cardio: COMMON NORMALS: no JVD, regular rhythm, S1 normal heart sound present and S2 normal heart sound present RATE: tachycardic RHYTHM: regular rhythm HEART SOUNDS: S1 normal heart sound present and S2 normal heart sound present GI: OTHER: Abdomen soft, distended, does have anasarca, no guarding, no rebound, no rigidity Extremity: NARRATIVE EXTREMITY EXAM: DP PT pulses palpable bilaterally, no mottling, 1+ pitting edema Neuro: COMMON NORMALS: CN's II-XII intact bilaterally, moves all extremities and no focal motor deficits OTHER: Can follow neurologic testing, equal strength bilateral upper extremity equal strength bilateral extremities, no focal weakness deficits, can follow neurologic testing able to smile for me, tell me his name, date, not oriented to time, no slurring of words, denies any focal numbness, difficulty to cerebellar signs given his mild respiratory distress on the BiPAP Psych: COMMON NORMALS: mental status grossly normal Data 09/06/23 09:43 09/06/23 09:43 A&P Assessment and plan (1) Acute respiratory failure with hypoxia and hypercapnia: (2) Pneumonia: (3) Sleep apnea: (4) Former smoker: (5) Diabetes: (6) Hypothyroidism: (7) Diastolic heart failure: (8) Hypertension: (9) CHF exacerbation: Plan Acute hypoxic hypercarbic respiratory failure ? Secondary to CHF exacerbation, fluid overload ? Secondary to pneumonia ? secondary to history of COPD? ? History of pulm hypertension? CT/CT angio chest PE protcl [id number] IMPRESSION: 1. Limitations result in suboptimal opacification and heterogeneity of the pulmonary arteries. There is no obvious larger central pulmonary embolism, but a smaller segmental or subsegmental PE in either lung can not be excluded on the basis of this examination. 2. Kcofrhyf-kw-idinf amount of new abnormality in the right lung is probably pneumonia, possibly atypical. However, the nodular component discussed above raises the possibility of malignancy. Recommend CT Chest at 3-6 months. Subsequent management based on the most suspicious nodule(s). (Reference: Miguel). 3. New mild cardiomegaly. No evidence of right heart strain. 4. Additional details as above. ? Plan ? Monitor in ICU closely ? Continue BiPAP ? If patient's respiratory status worsens, hypercarbia worsens, we will consider intubation patient is agreeable ? Continue Rocephin -azithromycin ? DuoNeb -Budesonide ?Decadron ? Precedex for anxiety, agitation, ? Morphine for low back pain ? 1 dose IV Lasix ? Cardiac echo next?fluid restrictions ? Serial EKGs, serial troponins, telemetry monitoring -Blood cultures -Sputum cultures -Respiratory viral panel ? Full code ? Lovenox for DVT prophylaxis Attestations 2 Medical Necessity Statement*: Patient requires hospitalization, inpatient, greater than 2 midnights, for acute hypoxic hypercarbic respiratory failure secondary to CHF exacerbation, fluid overload, pneumonia Diagnoses Acute respiratory failure with hypoxia and hypercapnia J96.01; J96.02 Pneumonia J18.9 Sleep apnea G47.30 Former smoker Z87.891 Diabetes E11.9 Hypothyroidism E03.9 Diastolic heart failure I50.30 Hypertension I10 CHF exacerbation I50.9
[2023-09-06] MEDS: cefTRIAXone 1,000 MG in sodium chloride 0.9% (plus) 50 ML 100 MG IV (15:00)
--- NOTE | 2023-09-06 15:12 | USCV_ITS ---
Flako Petty Age: 68 Gender: M : 1955 Exam Date: 09/06/2023 18:51 Ordering Phys: Yuri Neal MD Technologist: ANTONIA Exam Location: [facility] [place] Indication: sob BP: 146 / 83 HR: 69 Rhythm: Sinus Technical Quality: Adequate MEASUREMENTS (Male / Female) Normal Values 2D ECHO LV Diastolic Diameter PLAX 5.0 cm 4.2 - 5.9 / 3.9 - 5.3 cm IVS Diastolic Thickness 1.3 cm 0.6 - 1.0 / 0.6 - 0.9 cm IVS Systolic Thickness 2.0 cm LVPW Diastolic Thickness 1.1 cm 0.6 - 1.0 / 0.6 - 0.9 cm LVPW Systolic Thickness 1.6 cm LVOT Diameter 1.9 cm LV Ejection Fraction 2D Teich 68.2 % LV Ejection Fraction MOD 2C 35.9 % LV Ejection Fraction 2C AL 35.3 % LA Diameter 3.7 cm LA Sys Volume AL 65.5 cm cubed LA Sys Volume Index AL 28.4 cm cubed/m squared Aorta at Sinotubular Diameter 3.0 cm IVC Diameter 2.3 cm M-MODE LA Ao Ratio MM 1.5 AV Cusp Separation MM 1.8 cm DOPPLER AV Peak Velocity 153.0 cm/s LVOT Peak Velocity 91.0 cm/s AV Area Cont Eq vti 2.2 cm squared AV Area Cont Eq pk 1.7 cm squared MV Peak Velocity 139.0 cm/s MV Area PHT 4.2 cm squared Mitral E to A Ratio 0.8 TV Peak Velocity 232.0 cm/s TR Peak Velocity 238.0 cm/s TR Peak Gradient 22.7 mmHg TV Peak E Velocity 62.0 cm/s Right Atrial Pressure 3.0 mmHg Pulmonary Artery Systolic Pressu 25.7 mmHg PV Peak Velocity 116.0 cm/s FINDINGS Left Ventricle Normal left ventricular size, systolic function and wall thickness, with no regional wall motion abnormalities. Left ventricular ejection fraction 60%. Grade I/IV diastolic dysfunction (abnormal relaxation filling pattern), normal to mildly elevated filling pressures. Right Ventricle The right ventricle is normal in size and function. Right Atrium The right atrium is normal in size. Left Atrium The left atrium is normal in size. Mitral Valve Moderate mitral annular calcification. Moderately thickened mitral valve. No mitral valve stenosis. Trace mitral valve regurgitation. Aortic Valve Moderate aortic valve calcification. Mild aortic valve stenosis, mean gradient 4.2 mmHg, ANGELICA 2.2 cm squared. Trace aortic valve regurgitation. Tricuspid Valve Structurally normal tricuspid valve without significant stenosis mild mild regurgitation. Pulmonary artery systolic pressure is normal. Pulmonic Valve Structurally normal pulmonic valve without significant stenosis. There is no pulmonic regurgitation. Pericardium Normal pericardium without effusion. Aorta Normal ascending aorta dimension. IVC The inferior vena cava appears normal. CONCLUSIONS 1-Normal left ventricular size, systolic function and wall thickness, with no regional wall motion abnormalities. Left ventricular ejection fraction 60%. Grade I/IV diastolic dysfunction (abnormal relaxation filling pattern), normal to mildly elevated filling pressures. 2-Moderate aortic valve calcification. Mild aortic valve stenosis, mean gradient 4.2 mmHg, ANGELICA 2.2 cm squared. Trace aortic valve regurgitation. 3-Moderate mitral annular calcification. Moderately thickened mitral valve. No mitral valve stenosis. Trace mitral valve regurgitation. 4-There is no pericardial effusion. 5-Right atrial pressure is around 5 mm of mercury. Shasha Hayes MD (Electronically Signed) Final Date: 06 September 2023 19:50 S
--- NOTE | 2023-09-06 15:12 | USR_ITS ---
PROCEDURE INFORMATION: Exam: US Duplex Lower Extremity Veins, Bilateral Exam date and time: 09/06/2023 4:33 PM Age: 68 years old Clinical indication: Swelling (edema) of limb; Lower extremity, bilateral TECHNIQUE: Imaging protocol: Real-time duplex ultrasound of the bilateral extremities with 2-D cox scale, color Doppler flow and spectral waveform analysis including responses to compression and other maneuvers (when performed) with image documentation. Complete exam focused on the lower extremity veins. COMPARISON: CT angio chest w abd pel w con 05/17/2022 7:49 PM FINDINGS: Right deep veins: Unremarkable. The common femoral, femoral, proximal profunda femoral, popliteal, posterior tibial and peroneal veins are patent without thrombus. Normal Doppler waveforms. Normal compressibility and/or augmentation response. Left deep veins: Unremarkable. The common femoral, femoral, proximal profunda femoral, popliteal, posterior tibial and peroneal veins are patent without thrombus. Normal Doppler waveforms. Normal compressibility and/or augmentation response. Superficial veins: Greater saphenous veins at the saphenofemoral junctions are patent bilaterally without thrombus. Soft tissues: Unremarkable. US/CV venous duplex [facility] [id number] IMPRESSION: No sonographic evidence of deep venous thrombosis.
[2023-09-06 15:29] LABS: Procalcitonin 0.09 ng/mL (0-0.5)
--- NOTE | 2023-09-06 15:55 | ECG_ITS ---
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 Measurements Intervals [place] Rate: 74 P: 51 [place]: 163 QRS: 26 QRSD: 94 T: 35 QT: 401 QTc: 446 Interpretive Statements SINUS RHYTHM POSSIBLE LEFT ATRIAL ENLARGEMENT [-0.1mV P-WAVE IN V1/V2] Compared to ECG 09/06/2023 11:54:05 No significant changes Electronically Signed On 09-07-2023 13:59:31 CDT by Hitesh Cavanaugh M.D. [id number]
[2023-09-06 15:56] LABS: C Reactive Protein 3.8 mg/L (0.0-4.9)
[2023-09-06] MEDS: ipratropium-albuterol 3 mL Neb INHALATION ×3 (15:58→23:12)
[2023-09-06] MEDS: azithromycin 500 MG in sodium chloride 0.9% 250 ML 250 MG IV (16:08)
[2023-09-06] MEDS: enoxaparin 40 mg/0.4 mL Syringe SUBCUT (16:09)
[2023-09-06] MEDS: FUROsemide 10 mg/mL SDV 4mL 40 MG IVP (16:10)
[2023-09-06] MEDS: pantoprazole 40 mg SDV IVP (16:10)
[2023-09-06 17:35] LABS: Glucose Point of Care 280 mg/dL (70-110)
[2023-09-06 18:16] LABS: ABG PCO2 54.6 mmHg (35-45); ABG PH Result 7.37 (7.35-7.45); Arterial Blood Gas Hematocrit 54.3 % (42-52); Blood Gas Allen Test Pos; Blood Gas Sample Type Arterial; HCO3 ABG 31.2 mmol/L (22-26); PO2 ABG 80.1 mmHg (80.0-100.0)
[2023-09-06 18:17] LABS: Blood Gas Operator Identificat MONRO; Blood Gas Sample Site Radial, left; Oxygen Device NC; PO2 FiO2 Ratio Arterial Blood 0
[2023-09-06] MEDS: insulin lispro 100 unit/1 mL SUBCUT (18:35)
[2023-09-06] MEDS: metoprolol tartrate 50 mg Tablet PO (18:35)
[2023-09-06 19:44] LABS: Adenovirus Not Detected (NOT DETECT); Chlamydia Pneumoniae Not Detected (NOT DETECT); Coronavirus 229E,HKU1,NL63,OC4 Not Detected (NOT DETECT); Human Metapneumovirus Not Detected (NOT DETECT); Human Rhinovirus/Enterovirus Not Detected (NOT DETECT); Influenza A Not Detected (NOT DETECT); Influenza A H1 Not Detected (NOT DETECT); Influenza A H1-2009 Not Detected (NOT DETECT); Influenza A H3 Not Detected (NOT DETECT); Influenza B Not Detected (NOT DETECT); Mycoplasma Pneumoniae Not Detected (NOT DETECT); Parainfluenza Virus Type 1 Not Detected (NOT DETECT); Parainfluenza Virus Type 2 Not Detected (NOT DETECT); Parainfluenza Virus Type 3 Not Detected (NOT DETECT); Parainfluenza Virus Type 4 Not Detected (NOT DETECT); Respiratory Syncytial Virus A Not Detected (NOT DETECT); Respiratory Syncytial Virus B Not Detected (NOT DETECT); SARS-COV-2 Not Detected (NOT DETECT)
[2023-09-06] MEDS: dexmedeTOMIDine 0.9 % NaCL 400 MCG/100 ML PREMIX 2.66999999999999993 MCG IV (19:56)
[2023-09-06] MEDS: budesonide 0.5 mg/2 mL Neb INHALATION (19:57)
[2023-09-06] MEDS: atorvastatin 40 mg Tablet PO (20:01)
[2023-09-06] MEDS: morphine 4 mg/mL SDV 1 mL 1 MG IVP (21:14)
[2023-09-07] VITALS (19 sets, daily range): BP systolic 101–168; BP diastolic 52–100; PULSE 60–94; RESP 14–30; TEMP 36.6–37.1; O2SAT 87–98
[2023-09-07] MEDS: ipratropium-albuterol 3 mL Neb INHALATION ×6 (03:18→23:22)
[2023-09-07 04:33] LABS: Basophils % 0.1 %; Eosinophils % 0.1 %; Hematocrit 52.4 % (37-53); Lymphocytes % 12.7 %; Mean Corpuscular HGB Conc 32.6 g/dL (30-55); Mean Corpuscular Hemoglobin 28.4 pg (27-33); Mean Platelet Volume 11.8 fL (7.4-10.4); Monocytes # 0.6 10^3/uL (0.2-0.9); Monocytes % 7.4 %; Neutrophils # 6.37 10^3/uL (1.8-7.7); Neutrophils % 79.5 %; Nucleated Red Blood Cells % 0 %; Platelet Count 109 10^3/cmm (157-399); Red Blood Count 6.02 10^6/uL (3.85-5.65); Red Cell Distribution Width 13.4 % (12.1-15.1); White Blood Count 8.02 10^3/uL (3.29-11.43)
[2023-09-07 04:49] LABS: Anion Gap 14.2 (5-19); Blood Urea Nitrogen 16 mg/dL (8-23); Calcium 8.7 mg/dL (8.5-10.5); Carbon Dioxide 34 mmol/L (22-29); Chloride 96 mmol/L (98-107); Creatinine Clr Calc Pharmacy 82.3367; Glomerular Filtration Rate 74.1 mL/min (90-130); Glucose 222 mg/dL (65-115); Osmolality Calculated 298 mOsm/kg (285-295); Potassium 4.2 mmol/L (3.5-5.1); Sodium 140 mmol/L (136-145)
[2023-09-07 05:01] LABS: NT Pro B Type Natriuretic Pept 1211 pg/mL (0-125)
[2023-09-07] MEDS: dexamethasone 10 mg/mL INJ 6 MG IVP (05:13)
[2023-09-07 07:56] LABS: Glucose Point of Care 215 mg/dL (70-110)
[2023-09-07] MEDS: metoprolol tartrate 50 mg Tablet PO (08:14)
[2023-09-07] MEDS: aspirin 81 mg EC Tablet PO (08:14)
[2023-09-07] MEDS: fluoxetine 20 mg Capsule 40 MG PO (08:15)
[2023-09-07] MEDS: levothyroxine 100 mcg Tablet PO (08:15)
[2023-09-07] MEDS: insulin lispro 100 unit/1 mL SUBCUT ×3 (08:16→18:42)
[2023-09-07] MEDS: FUROsemide 10 mg/mL SDV 4mL 40 MG IVP (08:16)
[2023-09-07] MEDS: potassium chloride ER 20 mEq Tablet PO (08:17)
[2023-09-07] MEDS: budesonide 0.5 mg/2 mL Neb INHALATION ×2 (09:04→19:58)
[2023-09-07 11:16] LABS: Glucose Point of Care 323 mg/dL (70-110)
--- NOTE | 2023-09-07 12:56 | PC.SOCIAL ---
IMM Updated Updated pt on IMM. No questions voiced. Provided pt a copy. Initialed, dated, & timed a copy & placed in chart.
[2023-09-07] MEDS: azithromycin 500 MG in sodium chloride 0.9% 250 ML 250 MG IV (13:46)
--- NOTE | 2023-09-07 14:46 | P.PN_ITS ---
Subjective 2 Subjective: Patient Was seen this morning, denies any fevers, chills, no cough, shortness of breath improving, Vitals/I&O/Wt Last Vital Signs Temp 98.6 F 09/07/23 04:00 Pulse 73 09/07/23 12:00 Resp 18 09/07/23 12:00 BP 125/78 09/07/23 08:00 Pulse Ox 97 09/07/23 12:00 O2 Del Method Nasal Cannula 09/07/23 12:00 O2 Flow Rate 3 09/07/23 12:00 FiO2 30 09/07/23 09:05 09/06/23 09/07/23 09/07/23 22:59 06:59 14:59 Intake Total 609.200 / 609.200 127.591 / 736.791 540 / 540 Output Total 1850 / 1850 1175 / 3025 950 / 950 Balance -1240.800 / -1240.800 -1047.409 / -2288.209 -410 / -410 Weight last 48 hrs Weight 106.141 kg Weight 104.961 kg Weight 106.594 kg Physical Exam 2 Const: COMMON NORMALS: no acute distress and patient oriented x3 Resp: COMMON NORMALS: normal respiratory effort, No retractions and No use of accessory muscles AUSCULTATION: crackles and wheezes Cardio: COMMON NORMALS: regular rate, regular rhythm, S1 normal heart sound present and S2 normal heart sound present RATE: regular rate RHYTHM: r egular rhythm HEART SOUNDS: S1 normal heart sound present and S2 normal heart sound present GI: COMMON NORMALS: Normal to inspection, nondistended, normoactive bowel sounds present and non-tender Extremity: NARRATIVE EXTREMITY EXAM: 1+ edema Neuro: COMMON NORMALS: patient oriented x3 Psych: COMMON NORMALS: mental status grossly normal Urinary Catheter Management: Nieto: Cath Placed During This Visit: yes Reason for Continuing Indwelling Catheter: Accurate Measurement of Urinary Output in Critically Ill Patients Urinary Catheter Date of Insertion: 09/06/23 Urinary Catheter Time of Insertion: 16:45 Data 09/07/23 04:11 09/07/23 04:11 Micro: Microbiology 09/06/23 14:44 Blood Culture - Preliminary Blood SPECIMEN COLLECTED 09/06/23 14:57 Blood Culture - Preliminary Blood SPECIMEN COLLECTED A&P Assessment and plan (1) Acute respiratory failure with hypoxia and hypercapnia: (2) Pneumonia: (3) Sleep apnea: (4) Former smoker: (5) Diabetes: (6) Hypothyroidism: (7) Diastolic heart failure: (8) Hypertension: (9) CHF exacerbation: Plan Acute hypoxic hypercarbic respiratory failure ? Secondary to CHF exacerbation, fluid overload ? Secondary to pneumonia ? secondary to history of COPD? ? History of pulm hypertension? CT/CT angio chest PE protcl [id number] IMPRESSION: 1. Limitations result in suboptimal opacification and heterogeneity of the pulmonary arteries. There is no obvious larger central pulmonary embolism, but a smaller segmental or subsegmental PE in either lung can not be excluded on the basis of this examination. 2. Zzawzius-ih-ccyok amount of new abnormality in the right lung is probably pneumonia, possibly atypical. However, the nodular component discussed above raises the possibility of malignancy. Recommend CT Chest at 3-6 months. Subsequent management based on the most suspicious nodule(s). (Reference: Miguel). 3. New mild cardiomegaly. No evidence of right heart strain. 4. Additional details as above. ? Plan ? Monitor in ICU closely ? Continue BiPAP ? If patient's respiratory status worsens, hypercarbia worsens, we will consider intubation patient is agreeable ? Continue Rocephin -azithromycin ? DuoNeb -Budesonide ?Decadron ? Precedex for anxiety, agitation, ? Morphine for low back pain ? 1 dose IV Lasix ? Cardiac echo CONCLUSIONS 1-Normal left ventricular size, systolic function and wall thickness, with no regional wall motion abnormalities. Left ventricular ejection fraction 60%. Grade I/IV diastolic dysfunction (abnormal relaxation filling pattern), normal to mildly elevated filling pressures. 2-Moderate aortic valve calcification. Mild aortic valve stenosis, mean gradient 4.2 mmHg, ANGELICA 2.2 cm squared. Trace aortic valve regurgitation. 3-Moderate mitral annular calcification. Moderately thickened mitral valve. No mitral valve stenosis. Trace mitral valve regurgitation. 4-There is no pericardial effusion. 5-Right atrial pressure is around 5 mm of mercury. ?fluid restrictions ? Serial EKGs, serial troponins, telemetry monitoring -Blood cultures -Sputum cultures -Respiratory viral panel ? Full code ? Lovenox for DVT prophylaxis Attestations 2 Medical Necessity Statement*: Patient requires hospitalization for acute hypoxic respiratory failure secondary to COPD, CHF, pneumonia, Diagnoses Acute respiratory failure with hypoxia and hypercapnia J96.01; J96.02 Pneumonia J18.9 Sleep apnea G47.30 Former smoker Z87.891 Diabetes E11.9 Hypothyroidism E03.9 Diastolic heart failure I50.30 Hypertension I10 CHF exacerbation I50.9
[2023-09-07] MEDS: pantoprazole 40 mg SDV IVP (14:51)
[2023-09-07] MEDS: cefTRIAXone 1,000 MG in sodium chloride 0.9% (plus) 50 ML 100 MG IV (14:51)
[2023-09-07] MEDS: enoxaparin 40 mg/0.4 mL Syringe SUBCUT (14:52)
[2023-09-07 17:07] LABS: Glucose Point of Care 344 mg/dL (70-110)
[2023-09-07 20:27] LABS: Glucose Point of Care 354 mg/dL (70-110)
[2023-09-07] MEDS: atorvastatin 40 mg Tablet PO (21:02)
[2023-09-07] MEDS: trazodone 100 mg Tablet PO (21:03)
[2023-09-08] VITALS (20 sets, daily range): BP systolic 109–155; BP diastolic 64–93; PULSE 67–95; RESP 15–19; TEMP 36.5–36.7; O2SAT 91–97
[2023-09-08] MEDS: morphine 4 mg/mL SDV 1 mL 1 MG IVP (02:51)
[2023-09-08] MEDS: ipratropium-albuterol 3 mL Neb INHALATION ×6 (03:15→23:23)
[2023-09-08] MEDS: dexamethasone 10 mg/mL INJ 6 MG IVP (05:23)
[2023-09-08 06:06] LABS: Basophils % 0.2 %; Eosinophils % 0.5 %; Hematocrit 52.6 % (37-53); Lymphocytes # 0.8 10^3/uL (0.8-4.8); Lymphocytes % 13.3 %; Mean Corpuscular HGB Conc 32.3 g/dL (30-55); Mean Corpuscular Volume 86.5 fl (82-101); Mean Platelet Volume 12.8 fL (7.4-10.4); Monocytes # 0.6 10^3/uL (0.2-0.9); Monocytes % 8.7 %; Neutrophils # 4.89 10^3/uL (1.8-7.7); Neutrophils % 77.1 %; Nucleated Red Blood Cells % 0 %; Platelet Count 115 10^3/cmm (157-399); Red Blood Count 6.08 10^6/uL (3.85-5.65); Red Cell Distribution Width 13.3 % (12.1-15.1); White Blood Count 6.33 10^3/uL (3.29-11.43)
[2023-09-08 06:16] LABS: Glucose Point of Care 244 mg/dL (70-110)
[2023-09-08 06:31] LABS: Anion Gap 15.6 (5-19); Blood Urea Nitrogen 23 mg/dL (8-23); Calcium 8.3 mg/dL (8.5-10.5); Carbon Dioxide 34 mmol/L (22-29); Chloride 93 mmol/L (98-107); Creatinine Clr Calc Pharmacy 92.8369; Glomerular Filtration Rate 83.7 mL/min (90-130); Glucose 247 mg/dL (65-115); Osmolality Calculated 300 mOsm/kg (285-295); Potassium 3.6 mmol/L (3.5-5.1); Sodium 139 mmol/L (136-145)
[2023-09-08] MEDS: levothyroxine 100 mcg Tablet PO (07:38)
[2023-09-08] MEDS: metoprolol tartrate 50 mg Tablet PO ×2 (07:39→17:41)
[2023-09-08] MEDS: fluoxetine 20 mg Capsule 40 MG PO (07:39)
[2023-09-08] MEDS: aspirin 81 mg EC Tablet PO (07:40)
[2023-09-08] MEDS: insulin lispro 100 unit/1 mL SUBCUT ×3 (07:40→17:41)
[2023-09-08] MEDS: budesonide 0.5 mg/2 mL Neb INHALATION ×2 (07:49→19:33)
--- NOTE | 2023-09-08 07:58 | ECG_ITS ---
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 Measurements Intervals [place] Rate: 90 P: 40 [place]: 164 QRS: 4 QRSD: 89 T: 3 QT: 379 QTc: 465 Interpretive Statements SINUS RHYTHM WITH OCCASIONAL VENTRICULAR PREMATURE COMPLEXES POSSIBLE LEFT ATRIAL ENLARGEMENT [-0.1mV P-WAVE IN V1/V2] Compared to ECG 09/06/2023 16:14:20 Ventricular premature complex(es) now present Electronically Signed On 09-09-2023 9:56:57 CDT by Hitesh Cavanaugh M.D. [id number]
[2023-09-08 08:43] LABS: Troponin(5th) Baseline 26 ng/L (0-15)
[2023-09-08 11:58] LABS: Glucose Point of Care 307 mg/dL (70-110)
--- NOTE | 2023-09-08 12:29 | PM.PN ---
Subjective Subjective: Patient was seen this morning, he denies any fevers, chills, cough, he does tell me that it hurt when they put in his Nieto catheter, Vitals/I&O/Wt Last Vital Signs Temp 97.9 F 09/08/23 08:00 Pulse 71 09/08/23 11:18 Resp 18 09/08/23 11:10 BP 155/93 09/08/23 08:00 Pulse Ox 94 09/08/23 11:10 O2 Del Method Nasal Cannula 09/08/23 11:10 O2 Flow Rate 2 09/08/23 08:00 FiO2 2 09/08/23 11:10 09/07/23 09/08/23 09/08/23 22:59 06:59 14:59 Intake Total 603.209 / 1143.209 100 / 1243.209 240 / 240 Output Total 1350 / 2300 200 / 2500 Balance -746.791 / -1156.791 -100 / -1256.791 240 / 240 Weight last 48 hrs Weight 109.225 kg Weight 106.141 kg Weight 104.961 kg Physical Exam Const: COMMON NORMALS: no acute distress and patient oriented x3 Resp: COMMON NORMALS: normal respiratory effort, No retractions, No use of accessory muscles and clear to auscultation bilaterally AUSCULTATION: clear to auscultation bilaterally Cardio: COMMON NORMALS: regular rate, regular rhythm, S1 normal heart sound present and S2 normal heart sound present RATE: regular rate RHYTHM: regular rhythm HEART SOUNDS: S1 normal heart sound present and S2 normal heart sound present GI: COMMON NORMALS: Normal to inspection, nondistended, normoactive bowel sounds present and non-tender Extremity: NARRATIVE EXTREMITY EXAM: 1+edema Neuro: COMMON NORMALS: patient oriented x3 Psych: COMMON NORMALS: mental status grossly normal Urinary Catheter Management: Nieto: Cath Placed During This Visit: yes Reason for Continuing Indwelling Catheter: Acute Urinary Retention or Obstruction Urinary Catheter Date of Insertion: 09/06/23 Urinary Catheter Time of Insertion: 16:45 Data 09/08/23 05:16 09/08/23 05:16 Micro: Microbiology 09/06/23 14:44 Blood Culture - Preliminary Blood NEGATIVE TO DATE 09/06/23 14:57 Blood Culture - Preliminary Blood NEGATIVE TO DATE A&P Assessment and plan (1) Acute respiratory failure with hypoxia and hypercapnia: (2) Pneumonia: (3) Sleep apnea: (4) Former smoker: (5) Diabetes: (6) Hypothyroidism: (7) Diastolic heart failure: (8) Hypertension: (9) CHF exacerbation: Plan Acute hypoxic hypercarbic respiratory failure ? Secondary to CHF exacerbation, fluid overload ? Secondary to pneumonia ? secondary to history of COPD? ? History of pulm hypertension? CT/CT angio chest PE protcl [id number] IMPRESSION: 1. Limitations result in suboptimal opacification and heterogeneity of the pulmonary arteries. There is no obvious larger central pulmonary embolism, but a smaller segmental or subsegmental PE in either lung can not be excluded on the basis of this examination. 2. [id number] amount of new abnormality in the right lung is probably pneumonia, possibly atypical. However, the nodular component discussed above raises the possibility of malignancy. Recommend CT Chest at 3-6 months. Subsequent management based on the most suspicious nodule(s). (Reference: Miguel). 3. New mild cardiomegaly. No evidence of right heart strain. 4. Additional details as above. ? Plan ? move to [facility] ? Continue BiPAP as needed during the day ? Continue Rocephin -azithromycin ? DuoNeb -Budesonide ?Decadron ? Precedex for anxiety, agitation, ? Morphine for low back pain ? 1 dose IV Lasix ? Cardiac echo CONCLUSIONS 1-Normal left ventricular size, systolic function and wall thickness, with no regional wall motion abnormalities. Left ventricular ejection fraction 60%. Grade I/IV diastolic dysfunction (abnormal relaxation filling pattern), normal to mildly elevated filling pressures. 2-Moderate aortic valve calcification. Mild aortic valve stenosis, mean gradient 4.2 mmHg, ANGELICA 2.2 cm squared. Trace aortic valve regurgitation. 3-Moderate mitral annular calcification. Moderately thickened mitral valve. No mitral valve stenosis. Trace mitral valve regurgitation. 4-There is no pericardial effusion. 5-Right atrial pressure is around 5 mm of mercury. ?fluid restrictions ? Serial EKGs, serial troponins, telemetry monitoring -Blood cultures -Sputum cultures -Respiratory viral panel ? Full code ? Lovenox for DVT prophylaxis patient has developed episodes of nsvt, will monitor, trop, ekg, magnesium level, Attestations Medical Necessity Statement*: patient requires hospitalization for acute hypoxic respiratory failure, pna, fluid overload Diagnoses Acute respiratory failure with hypoxia and hypercapnia J96.01; J96.02 Pneumonia J18.9 Sleep apnea G47.30 Former smoker Z87.891 Diabetes E11.9 Hypothyroidism E03.9 Diastolic heart failure I50.30 Hypertension I10 CHF exacerbation I50.9
[2023-09-08] MEDS: potassium chloride ER 20 mEq Tablet PO (12:42)
[2023-09-08] MEDS: tamsulosin 0.4 mg Capsule 0.400000000000000022 MG PO (12:42)
[2023-09-08] MEDS: insulin glargine 100 units/1 mL 10 UNIT SUBCUT (12:43)
[2023-09-08] MEDS: FUROsemide 10 mg/mL SDV 2mL 20 MG IVP (12:48)
[2023-09-08 12:49] LABS: Magnesium 1.8 mg/dL (1.7-2.3)
[2023-09-08] MEDS: azithromycin 250 mg Tablet PO (15:02)
[2023-09-08] MEDS: enoxaparin 40 mg/0.4 mL Syringe SUBCUT (15:03)
[2023-09-08] MEDS: cefTRIAXone 1,000 MG in sodium chloride 0.9% (plus) 50 ML 100 MG IV (15:03)
[2023-09-08] MEDS: pantoprazole 40 mg SDV IVP (15:30)
[2023-09-08 17:09] LABS: Glucose Point of Care 314 mg/dL (70-110)
[2023-09-08] MEDS: atorvastatin 40 mg Tablet PO (20:35)
[2023-09-08] MEDS: trazodone 100 mg Tablet PO (20:35)
[2023-09-08 20:52] LABS: Glucose Point of Care 286 mg/dL (70-110)
[2023-09-09] VITALS (20 sets, daily range): BP systolic 112–171; BP diastolic 71–99; PULSE 63–91; RESP 12–21; TEMP 36.3–36.9; O2SAT 90–98
[2023-09-09] MEDS: ipratropium-albuterol 3 mL Neb INHALATION ×6 (02:59→23:00)
[2023-09-09 05:33] LABS: Basophils % 0.4 %; Eosinophils # 0.1 10^3/uL (0.0-0.8); Eosinophils % 1.3 %; Hematocrit 55.7 % (37-53); Lymphocytes # 0.9 10^3/uL (0.8-4.8); Lymphocytes % 16.5 %; Mean Corpuscular HGB Conc 31.8 g/dL (30-55); Mean Corpuscular Hemoglobin 27.8 pg (27-33); Mean Corpuscular Volume 87.4 fl (82-101); Mean Platelet Volume 12.7 fL (7.4-10.4); Monocytes # 0.5 10^3/uL (0.2-0.9); Monocytes % 9.5 %; Neutrophils # 4.02 10^3/uL (1.8-7.7); Neutrophils % 71.9 %; Nucleated Red Blood Cells % 0 %; Platelet Count 109 10^3/cmm (157-399); Red Blood Count 6.37 10^6/uL (3.85-5.65); Red Cell Distribution Width 13.3 % (12.1-15.1); White Blood Count 5.58 10^3/uL (3.29-11.43)
[2023-09-09 05:57] LABS: Blood Urea Nitrogen 23 mg/dL (8-23); Calcium 8.3 mg/dL (8.5-10.5); Carbon Dioxide 31 mmol/L (22-29); Chloride 96 mmol/L (98-107); Creatinine Clr Calc Pharmacy 103.7261; Glomerular Filtration Rate 111.8 mL/min (90-130); Glucose 272 mg/dL (65-115); Osmolality Calculated 293 mOsm/kg (285-295); Sodium 135 mmol/L (136-145)
[2023-09-09 06:00] LABS: Anion Gap 12.2 (5-19); Potassium 4.2 mmol/L (3.5-5.1)
[2023-09-09 06:25] LABS: Glucose Point of Care 275 mg/dL (70-110)
[2023-09-09] MEDS: budesonide 0.5 mg/2 mL Neb INHALATION ×2 (08:16→20:24)
[2023-09-09] MEDS: predniSONE 20 mg Tablet 40 MG PO (08:24)
[2023-09-09] MEDS: tamsulosin 0.4 mg Capsule 0.400000000000000022 MG PO (08:24)
[2023-09-09] MEDS: levothyroxine 100 mcg Tablet PO (08:24)
[2023-09-09] MEDS: metoprolol tartrate 50 mg Tablet PO ×2 (08:24→17:02)
[2023-09-09] MEDS: fluoxetine 20 mg Capsule 40 MG PO (08:24)
[2023-09-09] MEDS: insulin lispro 100 unit/1 mL SUBCUT ×3 (08:25→17:02)
[2023-09-09] MEDS: aspirin 81 mg EC Tablet PO (08:25)
[2023-09-09 11:26] LABS: Glucose Point of Care 318 mg/dL (70-110)
--- NOTE | 2023-09-09 11:32 | P.PN_ITS ---
Subjective 2 Subjective: Patient was seen this morning, he denies any fevers, no chills, no cough, does complain of abdominal bloating, edema Vitals/I&O/Wt Last Vital Signs Temp 97.6 F 09/09/23 08:24 Pulse 77 09/09/23 11:20 Resp 18 09/09/23 11:14 BP 137/74 09/09/23 08:24 Pulse Ox 94 09/09/23 11:14 O2 Del Method Nasal Cannula 09/09/23 11:14 O2 Flow Rate 2 09/09/23 11:14 FiO2 30 09/09/23 02:59 09/08/23 09/09/23 09/09/23 22:59 06:59 14:59 Intake Total 390 / 870 400 / 1270 480 / 480 Output Total 450 / 450 700 / 1150 Balance -60 / 420 -300 / 120 480 / 480 Weight last 48 hrs Weight 107.774 kg Weight 109.225 kg Physical Exam 2 Const: COMMON NORMALS: no acute distress and patient oriented x3 Resp: COMMON NORMALS: normal respiratory effort, No retractions, No use of accessory muscles and clear to auscultation bilaterally AUSCULTATION: clear to auscultation bilaterally Cardio: COMMON NORMALS: regular rate, regular rhythm, S1 normal heart sound present and S2 normal heart sound present RATE: regular rate RHYTHM: r egular rhythm HEART SOUNDS: S1 normal heart sound present and S2 normal heart sound present GI: COMMON NORMALS: Normal to inspection, nondistended, normoactive bowel sounds present and non-tender Extremity: NARRATIVE EXTREMITY EXAM: 1+ edema Neuro: COMMON NORMALS: patient oriented x3 Psych: COMMON NORMALS: mental status grossly normal Urinary Catheter Management: Nieto: Cath Placed During This Visit: yes Reason for Continuing Indwelling Catheter: Other Urinary Catheter Date of Insertion: 09/06/23 Urinary Catheter Time of Insertion: 16:45 Data 09/09/23 04:00 09/09/23 04:00 A&P Assessment and plan (1) Acute respiratory failure with hypoxia and hypercapnia: (2) Pneumonia: (3) Sleep apnea: (4) Former smoker: (5) Diabetes: (6) Hypothyroidism: (7) Diastolic heart failure: (8) Hypertension: (9) CHF exacerbation: (10) Polycythemia: Plan Acute hypoxic hypercarbic respiratory failure ? Secondary to CHF exacerbation, fluid overload ? Secondary to pneumonia ? secondary to history of COPD? ? History of pulm hypertension? CT/CT angio chest PE protcl [id number] IMPRESSION: 1. Limitations result in suboptimal opacification and heterogeneity of the pulmonary arteries. There is no obvious larger central pulmonary embolism, but a smaller segmental or subsegmental PE in either lung can not be excluded on the basis of this examination. 2. [id number]-em-[id number] amount of new abnormality in the right lung is probably pneumonia, possibly atypical. However, the nodular component discussed above raises the possibility of malignancy. Recommend CT Chest at 3-6 months. Subsequent management based on the most suspicious nodule(s). (Reference: Miguel). 3. New mild cardiomegaly. No evidence of right heart strain. 4. Additional details as above. ? Plan ? move to [facility] ? Continue BiPAP as needed during the day, overnight pulse ox ordered to see if patient qualifies for BiPAP ? Continue Rocephin -azithromycin ? DuoNeb -Budesonide ?Decadron ? Precedex for anxiety, agitation, ? Morphine for low back pain ? 1 dose IV Lasix today ? Cardiac echo CONCLUSIONS 1-Normal left ventricular size, systolic function and wall thickness, with no regional wall motion abnormalities. Left ventricular ejection fraction 60%. Grade I/IV diastolic dysfunction (abnormal relaxation filling pattern), normal to mildly elevated filling pressures. 2-Moderate aortic valve calcification. Mild aortic valve stenosis, mean gradient 4.2 mmHg, ANGELICA 2.2 cm squared. Trace aortic valve regurgitation. 3-Moderate mitral annular calcification. Moderately thickened mitral valve. No mitral valve stenosis. Trace mitral valve regurgitation. 4-There is no pericardial effusion. 5-Right atrial pressure is around 5 mm of mercury. -Chronic polycythemia, likely from nocturnal hypoxia, and undiagnosed sleep apnea, will need to be followed as outpatient ? She will need to have a sleep study done as outpatient # Type 2 diabetes mellitus add Lantus 10 units, 2 sliding scale ? Patient's echocardiogram shows evidence of mild aortic valve stenosis will need to follow-up with pulmonary as outpatient ? He also has evidence of pulmonary hypertension, will have to follow-up with pulmonary as outpatient ? Has diastolic CHF and echocardiogram will need to have s Lasix on discharge to help with fluid overload ? Has had nonsustained V. tach episodes, will continue to monitor continue beta- joyce ? Nieto catheter placed for urinary retention, added Flomax, will do a trial without Nieto catheter tomorrow ?fluid restrictions ? Serial EKGs, serial troponins, telemetry monitoring -Blood cultures -Sputum cultures -Respiratory viral panel ? Full code ? Lovenox for DVT prophylaxis Plan for today, start Lantus 10 units subcu, 1 dose of Lasix continue IV antibiotics, up out of bed, Attestations 2 Medical Necessity Statement*: Patient requires hospitalization for acute hypoxic respiratory failure multifactorial, from diastolic CHF, pneumonia, COPD Diagnoses Acute respiratory failure with hypoxia and hypercapnia J96.01; J96.02 Pneumonia J18.9 Sleep apnea G47.30 Former smoker Z87.891 Diabetes E11.9 Hypothyroidism E03.9 Diastolic heart failure I50.30 Hypertension I10 CHF exacerbation I50.9 Polycythemia D75.1
[2023-09-09] MEDS: insulin glargine 100 units/1 mL 10 UNIT SUBCUT (12:24)
[2023-09-09] MEDS: FUROsemide 10 mg/mL SDV 2mL 20 MG IVP (12:48)
[2023-09-09] MEDS: azithromycin 250 mg Tablet PO (13:58)
[2023-09-09] MEDS: cefTRIAXone 1,000 MG in sodium chloride 0.9% (plus) 50 ML 100 MG IV (13:58)
[2023-09-09] MEDS: enoxaparin 40 mg/0.4 mL Syringe SUBCUT (16:00)
[2023-09-09 16:33] LABS: Glucose Point of Care 298 mg/dL (70-110)
[2023-09-09] MEDS: trazodone 100 mg Tablet PO (20:20)
[2023-09-09] MEDS: atorvastatin 40 mg Tablet PO (20:20)
[2023-09-09 21:13] LABS: Glucose Point of Care 342 mg/dL (70-110)
[2023-09-09] MEDS: insulin lispro 100 unit/1 mL 14 UNIT SUBCUT (22:02)
--- NOTE | 2023-09-09 22:46 | PC.NURSE ---
Patients blood sugar 342 at bedtime; no insulin orders in place for night time. Got juany of Dr Flores who put in a one time order of 14 units of humalog.
[2023-09-10] VITALS (10 sets, daily range): BP systolic 135–154; BP diastolic 77–88; PULSE 59–70; RESP 11–18; TEMP 36.4–37; O2SAT 87–97
[2023-09-10] MEDS: ipratropium-albuterol 3 mL Neb INHALATION ×2 (03:08→08:10)
[2023-09-10 05:43] LABS: Basophils % 0.4 %; Eosinophils # 0.1 10^3/uL (0.0-0.8); Hematocrit 55.7 % (37-53); Lymphocytes # 0.9 10^3/uL (0.8-4.8); Lymphocytes % 15.6 %; Mean Corpuscular HGB Conc 31.1 g/dL (30-55); Mean Corpuscular Hemoglobin 28.2 pg (27-33); Mean Corpuscular Volume 90.7 fl (82-101); Mean Platelet Volume 11.5 fL (7.4-10.4); Monocytes # 0.5 10^3/uL (0.2-0.9); Monocytes % 9.6 %; Neutrophils # 4.05 10^3/uL (1.8-7.7); Neutrophils % 71.7 %; Nucleated Red Blood Cells % 0 %; Platelet Count 121 10^3/cmm (157-399); Red Blood Count 6.14 10^6/uL (3.85-5.65); Red Cell Distribution Width 13.3 % (12.1-15.1); White Blood Count 5.64 10^3/uL (3.29-11.43)
[2023-09-10 06:00] LABS: Anion Gap 14.9 (5-19); Blood Urea Nitrogen 22 mg/dL (8-23); Calcium 8.3 mg/dL (8.5-10.5); Carbon Dioxide 28 mmol/L (22-29); Chloride 95 mmol/L (98-107); Creatinine Clr Calc Pharmacy 103.7261; Glomerular Filtration Rate 111.8 mL/min (90-130); Glucose 223 mg/dL (65-115); Osmolality Calculated 288 mOsm/kg (285-295); Potassium 3.9 mmol/L (3.5-5.1); Sodium 134 mmol/L (136-145)
[2023-09-10 06:36] LABS: Glucose Point of Care 200 mg/dL (70-110)
[2023-09-10] MEDS: budesonide 0.5 mg/2 mL Neb INHALATION (08:10)
[2023-09-10] MEDS: fluoxetine 20 mg Capsule 40 MG PO (08:15)
[2023-09-10] MEDS: levothyroxine 100 mcg Tablet PO (08:15)
[2023-09-10] MEDS: aspirin 81 mg EC Tablet PO (08:16)
[2023-09-10] MEDS: tamsulosin 0.4 mg Capsule 0.400000000000000022 MG PO (08:16)
[2023-09-10] MEDS: predniSONE 20 mg Tablet 40 MG PO (08:16)
[2023-09-10] MEDS: insulin lispro 100 unit/1 mL SUBCUT ×2 (08:16→11:52)
[2023-09-10] MEDS: metoprolol tartrate 50 mg Tablet PO (08:16)
[2023-09-10] MEDS: insulin glargine 100 units/1 mL 10 UNIT SUBCUT (08:16)
--- NOTE | 2023-09-10 09:50 | PM.DCS ---
Discharge Providers Date of Admission: 09/06/23 14:38 Date of Discharge: September 10, 2023 Attending Provider at Admission: Yuri Neal MD Attending Provider at Discharge: Felix Cheatham Primary Care Provider: Tesha Mariee MD Diagnoses at Discharge Discharge Diagnosis (1) Acute respiratory failure with hypoxia and hypercapnia: Status: Acute (2) Pneumonia: Status: Acute (3) Sleep apnea: Status: Acute (4) Former smoker: Status: Acute (5) Diabetes: Status: Acute (6) Hypothyroidism: Status: Acute (7) Diastolic heart failure: Status: Acute (8) Hypertension: Status: Acute (9) CHF exacerbation: Status: Acute (10) Polycythemia: Status: Acute Reason for Visit Reason for Visit: slurred speech, trouble walking Hospital Course Hospital Course 68-year-old gentleman was admitted with respiratory failure with hypoxia and hypercapnia, with pneumonia in the right lung on CT angiogram, no obvious large PE, small segmental or subsegmental PE could not be entirely excluded. Moderate to large amount of new abnormality in the right lung probably pneumonia, possibly atypical. Nodule component was noted, malignancy cannot be excluded. He was treated for respiratory failure, pneumonia, COPD exacerbation with antibiotic, steroid, as well as diastolic CHF exacerbation with IV Lasix, his condition improved, oxygen requirement improved, he weaned off BiPAP, currently down to 2 L nasal cannula oxygen. Home oxygen evaluation is being obtained. Discussed with him and his follow-up with primary provider for reassessment of recovery from pneumonia, reassessment of COPD, as well as numerous reassessment imaging elevated) pneumonia with nodular component, need reassessment imaging for recovery and disappearance of these findings to exclude malignancy, they verbalized understanding. Additionally he is referred for follow-up with pulmonology for COPD and hypercarbia. With hypercapnia and prior hospitalizations, we discussed with him also refer for sleep study. He is also asked to follow-up with cardiology with regards to diastolic CHF. He is given Lasix on as-needed basis at discharge. We further discussed optimizing lifestyle factors, including diet which we discussed in detail, activity follow-up and reinforced. He will be improving lifestyle factors including switching to heart healthy diet. Follow-up for optimization of control of hypertension. During hospitalization also with finding of urinary retention. Please follow-up for further close assessment, he is started on Flomax, Nieto catheter is maintained for now after discussion of option of voiding trial today versus keeping the catheter for 2 weeks to allow Flomax time to work with him and his preferring to go with the latter. Physical Exam Narrative: Accompanied by his at bedside. Const: COMMON NORMALS: patient oriented x3 and alert GENERAL APPEARANCE: cooperative ORIENTATION/CONSCIOUSNESS: Yes awake HENMT: COMMON NORMALS: oropharynx normal Neck/C-Spine: COMMON NORMALS: no JVD Resp: COMMON NORMALS: normal respiratory effort and clear to auscultation bilaterally AUSCULTATION: clear to auscultation bilaterally Cardio: COMMON NORMALS: no JVD, regular rhythm, S1 normal heart sound present, S2 normal heart sound present and No murmurs present (Cardio) RHYTHM: regular rhythm HEART SOUNDS: S1 normal heart sound present and S2 normal heart sound present GI: COMMON NORMALS: Normal to inspection, nondistended, normoactive bowel sounds present, Soft to palpation and non-tender PALPATION: Yes Soft to palpation Extremity: COMMON NORMALS: no joint enlargement and no pedal edema Neuro: COMMON NORMALS: patient oriented x3 and moves all extremities SENSORIUM/ORIENTATION: Yes alert Skin: COMMON NORMALS: no rashes or lesions noted GENERAL SKIN EXAM: no rashes or lesions noted Urinary Catheter Management: Nieto: Cath Placed During This Visit: yes Reason for Continuing Indwelling Catheter: Accurate Measurement of Urinary Output in Critically Ill Patients Urinary Catheter Date of Insertion: 09/06/23 Urinary Catheter Time of Insertion: 16:45 Discharge Data Studies Completed and Pending Completed Studies During Hospitalization Category Date Time Status CT head wo con* [id number] Stat Cat Scan 09/06/23 09:51 Completed CTA chest [CT angio chest PE protcl [id number]] Stat Cat Scan 09/06/23 11:04 Completed XR chest 1V portable [id number] Stat Exams 09/06/23 10:58 [place] [id number] Routine Ultrasound 09/06/23 15:12 Completed CV. echo complete* [id number] Routine Ultrasound 09/06/23 15:12 Completed Pending at discharge Category Date Time Status Blood Culture Stat Lab 09/06/23 14:44 Results Sputum Culture and Gram Stain Stat Lab 09/06/23 09:50 Uncollected Radiology Impressions Head CT 09/06/23 09:51 IMPRESSION: 1. No acute intracranial findings. 2. Additional details as above. Chest X-Ray 06/20/24 10:58 IMPRESSION: 1. Consolidating infiltrate in the RIGHT lower lung zone consistent with pneumonia. 2. Cardiomegaly. Chest CTA 09/06/23 11:04 IMPRESSION: 1. Limitations result in suboptimal opacification and heterogeneity of the pulmonary arteries. There is no obvious larger central pulmonary embolism, but a smaller segmental or subsegmental PE in either lung can not be excluded on the basis of this examination. 2. [id number] amount of new abnormality in the right lung is probably pneumonia, possibly atypical. However, the nodular component discussed above raises the possibility of malignancy. Recommend CT Chest at 3-6 months. Subsequent management based on the most suspicious nodule(s). (Reference: Miguel). 3. New mild cardiomegaly. No evidence of right heart strain. 4. Additional details as above. REFERENCES: Miugel Cortez, et al. Guidelines for Management of Incidental Pulmonary Nodules Detected on CT Images: From the Fleischner Society 2017. Radiology. 2017;284(1):228-243. Venous Duplex 09/06/23 15:12 IMPRESSION: No sonographic evidence of deep venous thrombosis. Laboratory Results WBC 5.64 10^3/uL (3.29-11.43) 09/10/23 05:23 RBC 6.14 10^6/uL (3.85-5.65) H 09/10/23 05:23 Hgb 17.30 g/dL (11.27-16.99) H 09/10/23 05:23 Hct 55.7 % (37-53) H 09/10/23 05:23 MCV 90.7 fl (82-101) 09/10/23 05:23 MCH 28.2 pg (27-33) 09/10/23 05:23 MCHC 31.1 g/dL (30-55) 09/10/23 05:23 RDW 13.3 % (12.1-15.1) 09/10/23 05:23 Plt Count 121 10^3/cmm (157-399) L 09/10/23 05:23 MPV 11.5 fL (7.4-10.4) H 09/10/23 05:23 Neut % (Auto) 71.7 % 09/10/23 05:23 Lymph % (Auto) 15.6 % 09/10/23 05:23 Rush % (Auto) 9.6 % 09/10/23 05:23 Eos % (Auto) 2.0 % 09/10/23 05:23 Baso % (Auto) 0.4 % 09/10/23 05:23 Neut # (Auto) 4.05 10^3/uL (1.8-7.7) 09/10/23 05:23 Lymph # (Auto) 0.9 10^3/uL (0.8-4.8) 09/10/23 05:23 Rush # (Auto) 0.5 10^3/uL (0.2-0.9) 09/10/23 05:23 Eos # (Auto) 0.1 10^3/uL (0.0-0.8) 09/10/23 05:23 Baso # (Auto) 0.0 10^3/uL (0.0-0.1) 09/10/23 05:23 Nucleated RBC % (auto) 0 % 09/10/23 05:23 Nucleated RBCs # 0.0 /100WBC 09/10/23 05:23 Specimen Type Arterial 09/06/23 18:06 Sample Site Radial, left 09/06/23 18:06 ABG pH 7.37 (7.35-7.45) 09/06/23 18:06 ABG pCO2 54.6 mmHg (35-45) H 09/06/23 18:06 ABG pO2 80.1 mmHg (80.0-100.0) 09/06/23 18:06 ABG PO2/FiO2 Ratio 0 09/06/23 18:06 ABG HCO3 31.2 mmol/L (22-26) H 09/06/23 18:06 ABG O2 Saturation 79.4 09/06/23 09:46 ABG Base Excess 4.0 mmol/L (-2.0-2.0) H 09/06/23 18:06 Femi Test Pos 09/06/23 18:06 A-a O2 Gradient 4.7 mmHg (5-10) L 09/06/23 09:46 Hematocrit 54.3 % (42-52) H 09/06/23 18:06 Hgb O2 Saturation 77.7 % (95-100) L 09/06/23 09:46 Carboxyhemoglobin 1.8 %THgb (0.4-20.1) 09/06/23 09:46 Methemoglobin 0.4 % (0.4-1.5) 09/06/23 09:46 Total Hemoglobin 17.7 g/dL (14-18) 09/06/23 09:46 Sodium 140.0 mmol/L (131-143) 09/06/23 09:46 Potassium 4.2 mmol/L (3.5-5.0) 09/06/23 09:46 Glucose 202.0 mg/dL (70-115) H 09/06/23 09:46 Ionized Calcium 1.1 mmol/L (1.1-1.4) 09/06/23 09:46 O2 Delivery Device Nc 09/06/23 18:06 O2 Liters/Min 4.0 % 09/06/23 18:06 FiO2 36.0 % 09/06/23 18:06 Detasseling Crew Supervisor ID Monro 09/06/23 18:06 Sodium 134 mmol/L (136-145) L 09/10/23 05:23 Potassium 3.9 mmol/L (3.5-5.1) 09/10/23 05:23 Chloride 95 mmol/L (98-107) L 09/10/23 05:23 Carbon Dioxide 28 mmol/L (22-29) 09/10/23 05:23 Anion Gap 14.9 (5-19) 09/10/23 05:23 BUN 22 mg/dL (8-23) 09/10/23 05:23 Creatinine 0.7 mg/dL (0.7-1.2) 09/10/23 05:23 GFR Calculation 111.8 mL/min (90-130) 09/10/23 05:23 Glucose 223 mg/dL (65-115) H 09/10/23 05:23 POC Glucose 200 mg/dL (70-110) H 09/10/23 06:19 Calculated Osmolality 288 mOsm/kg (285-295) 09/10/23 05:23 Lactic Acid 1.2 mmol/L (0.5-2.2) 09/06/23 09:43 Calcium 8.3 mg/dL (8.5-10.5) L 09/10/23 05:23 Magnesium 1.8 mg/dL (1.7-2.3) 09/08/23 10:08 Total Bilirubin 1.0 mg/dL (0.15-1.2) 09/06/23 09:43 AST 20 U/L (0-40) 09/06/23 09:43 ALT 17 U/L (0-41) 09/06/23 09:43 Alkaline Phosphatase 46 U/L (40-130) 09/06/23 09:43 Troponin T Baseline 26 ng/L (0-15) H 09/08/23 08:15 Troponin T 120 Minute 25.73 ng/L (0-15) H 09/06/23 11:41 Delta Troponin T -3.27 ABS# (0-10) L 09/06/23 11:41 Troponin T Hi Sens 6Hr 26.50 ng/L (0-15) H 09/06/23 15:42 Troponin T Hi Sens 6Hr Delta -2.50 ng/L (0-12) L 09/06/23 15:42 C-Reactive Protein 3.8 mg/L (0.0-4.9) 09/06/23 09:43 NT-Pro-B Natriuret Pep 1211 pg/mL (0-125) H 09/07/23 04:11 Total Protein 7.2 g/dL (6.6-8.7) 09/06/23 09:43 Albumin 4.5 g/dL (3.5-5.2) 09/06/23 09:43 Globulin 2.7 g/dL (1.3-4.6) 09/06/23 09:43 Lipase 55 U/L (13-60) 09/06/23 09:43 Procalcitonin 0.09 ng/mL (0-0.5) 09/06/23 09:43 TSH 2.50 uIU/mL (0.27-4.20) 09/06/23 09:43 Urine Color Yellow (Yellow) 09/06/23 12:23 Urine Appearance Clear (CLEAR) 09/06/23 12:23 Urine pH 6.5 (5-7) 09/06/23 12:23 Ur Specific [place] 1.015 (1.005-1.030) 09/06/23 12:23 Urine Protein Neg (Negative) 09/06/23 12:23 Urine Glucose (UA) 4+ (Normal) H 09/06/23 12:23 Urine Ketones 1+ (Negative) H 09/06/23 12:23 Urine Blood Neg (Negative) 09/06/23 12:23 Urine Nitrate Negative (Negative) 09/06/23 12:23 Urine Bilirubin Neg (Negative) 09/06/23 12:23 Urine Urobilinogen 1 mg/dL (Negative) H 09/06/23 12:23 Ur Leukocyte Esterase Negative (Negative) 09/06/23 12:23 Adenovirus (PCR) Not detected (NOT DETECT) 09/06/23 17:34 C. pneumoniae DNA (PCR) Not detected (NOT DETECT) 09/06/23 17:34 Coronavirus 229E (PCR) Not detected (NOT DETECT) 09/06/23 17:34 Human Metapneumovir PCR Not detected (NOT DETECT) 09/06/23 17:34 Influenza A (H1) PCR Not detected (NOT DETECT) 09/06/23 17:34 Influ A (H1/09) PCR Not detected (NOT DETECT) 09/06/23 17:34 Influenza A (H3) PCR Not detected (NOT DETECT) 09/06/23 17:34 Influenza Type A (PCR) Not detected (NOT DETECT) 09/06/23 17:34 Influenza Type B (PCR) Not detected (NOT DETECT) 09/06/23 17:34 M. pneumoniae (PCR) Not detected (NOT DETECT) 09/06/23 17:34 Parainfluenza 1 (PCR) Not detected (NOT DETECT) 09/06/23 17:34 Parainfluenza 2 (PCR) Not detected (NOT DETECT) 09/06/23 17:34 Parainfluenza 3 (PCR) Not detected (NOT DETECT) 09/06/23 17:34 Parainfluenza 4 (PCR) Not detected (NOT DETECT) 09/06/23 17:34 RSV Type A (PCR) Not detected (NOT DETECT) 09/06/23 17:34 RSV Type B (PCR) Not detected (NOT DETECT) 09/06/23 17:34 Entero/Rhino (PCR) Not detected (NOT DETECT) 09/06/23 17:34 SARS-CoV-2 (PCR) Not detected (NOT DETECT) 09/06/23 17:34 Vitals Last Vital Signs Temp 97.8 F 09/10/23 07:56 Pulse 69 09/10/23 08:10 Resp 16 09/10/23 08:10 BP 154/88 09/10/23 07:56 Pulse Ox 94 09/10/23 08:10 O2 Del Method Nasal Cannula 09/10/23 08:10 O2 Flow Rate 2 09/10/23 08:10 FiO2 30 09/10/23 03:10 Discharge Plan Discharge Patient Disposition: Home Condition: Stable Prescriptions: New atorvastatin 40 mg Tablet 40 mg PO BEDTIME Qty: 90 0RF azithromycin 250 mg Tablet 250 mg PO Q24H Qty: 3 0RF prednisone 20 mg Tablet 40 mg PO DAILY Qty: 2 0RF aspirin 81 mg Tablet,Delayed Release (Dr/Ec) 81 mg PO DAILY Qty: 90 0RF tamsulosin 0.4 mg Capsule 0.4 mg PO DAILY Qty: 90 0RF cefdinir 300 mg capsule 300 mg PO BID Qty: 6 0RF Pyridium 100 mg tablet 100 mg PO TID Qty: 21 0RF furosemide 40 mg tablet 20 mg PO DAILY PRN (Reason: edema or rapid weight gain) Qty: 20 0RF Continued (DME) CAM BOOT See Rx Instructions .Route .MEDSUPPLY Qty: 1 0RF Rx Instructions: As directed (DME) ASO brace See Rx Instructions .Route .MEDSUPPLY Qty: 1 0RF Rx Instructions: As directed glipizide 5 mg tablet 5 mg PO BID (DME) blood-glucose meter [Blood Glucose Monitoring] Kit See Rx Instructions miscellaneous .MEDSUPPLY Qty: 1 0RF Rx Instructions: As directed; to test one x daily (DME) lancets 31 gauge misc See Rx Instructions miscellaneous .MEDSUPPLY Qty: 100 3RF Rx Instructions: As directed; to test one x daily (DME) Blood Glucose Test Strip See Rx Instructions miscellaneous .MEDSUPPLY Qty: 100 2RF Rx Instructions: As directed; to test one x daily (DME) free style peter See Rx Instructions .Route .MEDSUPPLY Qty: 1 0RF Rx Instructions: As directed metformin 500 mg tablet extended release 24 hr 500 mg PO BID 90 Days Qty: 180 1RF omeprazole 20 mg tablet,delayed release (DR/EC) 20 mg PO DAILY PRN (Reason: Acid Reflux) Qty: 30 5RF metoprolol tartrate 50 mg tablet 50 mg PO BID Qty: 60 3RF fluoxetine 40 mg capsule 40 mg PO DAILY Qty: 30 3RF pioglitazone 30 mg tablet 30 mg PO DAILY Qty: 30 3RF levothyroxine 100 mcg tablet 100 mcg PO DAILY trazodone 100 mg tablet 100 mg PO BEDTIME Jardiance 25 mg tablet 25 mg PO QAM Discharge Orders: Discharge Order (Routine); Ordered 09/10/23 Ordered By: Felix Cheatham Other Ambulatory Orders: DME: Oxygen (Order) Location: None Selected Ordered By: Felix Cheatham Referrals: Mariangel García [Other] - 2 weeks CARDIOLOGY [Provider Group] - 10/04/23 1:30 pm (CHF) Tesha Mariee MD [Primary Care Provider] - 09/17/23 2:40 pm Discharge Diet: Cardiac Patient Instructions: Phenazopyridine (By mouth), Azithromycin (By mouth), Tamsulosin (By mouth), Cefdinir (By mouth), Nieto Catheter Care, Heart Failure (GEN), Heart Healthy Diet (GEN), Nieto Catheter Placement and Care (GEN), Using Oxygen at Home (GEN), Urinary Leg Bag (GEN) Activity Restrictions/Additional Instructions: Please follow-up with your primary doctor for reassessment of pneumonia, COPD, and follow-up with primary provider as well as cardiology for congestive heart failure. Maintain cardiac diet. Follow-up with your primary provider and set up with pulmonology for reassessment of COPD, pulmonary hypertension. Discussed with your primary doctor also follow-up for resolution of abnormality in the right lung thought to be pneumonia, possibly atypical, but with nodular component, need to exclude any other process, follow-up for resolution to make sure no concerning processes like malignancy is going on. Follow up with your primary doctor to further discuss and refer for a sleep study. As you are keeping the Nieto catheter in place, follow-up with your primary doctor also regarding episode of urine retention, further assessment of your prostate, you are started on tamsulosin, prostate large medication to help reduce chance of recurrence of urinary retention. In case of inability to void, abdominal pain, or any other concerning symptoms that may suggest recurrence or retention, seek medical attention immediately. Similarly seek reassessment in case of any worsening or new concerning symptoms. Discharge Attestations Time Spent in Discharge Care*: greater than 30 min Quality Metrics Clinical Quality Measures [ No reported AMI, CVA or VTE this stay] Coding Level of Care Code 42559 Total time (in minutes) for Discharge: 60 Diagnoses Acute respiratory failure with hypoxia and hypercapnia J96.01; J96.02 Pneumonia J18.9 Sleep apnea G47.30 Former smoker Z87.891 Diabetes E11.9 Hypothyroidism E03.9 Diastolic heart failure I50.30 Hypertension I10 CHF exacerbation I50.9 Polycythemia D75.1
--- NOTE | 2023-09-10 10:45 | PC.SOCIAL ---
IMM Updated Updated pt on IMM. No questions voiced. Provided pt a copy. Initialed, dated, & timed copy in chart.
[2023-09-10 10:55] LABS: Glucose Point of Care 304 mg/dL (70-110)
--- NOTE | 2023-09-10 13:08 | PC.NURSE ---
patient and verbalized understanding of discharge insructions, follow up appointments, and home medications. Both verbalized understanding of chery catheter care, and instructions on how to switch to leg bag and and regular chery bag. patient discharged with leg bag on. home oxygen and medications delivered prior to discharge.
== END 2023-09-10 13:04 | disposition home or self-care (01) | DRG 189 ==
LOC: ER 14:32 → ICU 14:38 → MEDSURG 09-07 15:45
PROVIDERS: Admitting Provider Family Medicine; Emergency Provider Family Medicine; PCP Family Medicine; Visit Provider Internal Medicine
DX: J96.01 Acute respiratory failure with hypoxia (principal); I50.33 Acute on chronic diastolic (congestive) heart failure; J18.9 Pneumonia, unspecified organism; J96.02 Acute respiratory failure with hypercapnia; I11.0 Hypertensive heart disease with heart failure; J44.9 Chronic obstructive pulmonary disease, unspecified; Z87.891 Personal history of nicotine dependence; E11.9 Type 2 diabetes mellitus without complications; Z79.84 Long term (current) use of oral hypoglycemic drugs; E03.9 Hypothyroidism, unspecified; G47.30 Sleep apnea, unspecified; R91.1 Solitary pulmonary nodule; D75.1 Secondary polycythemia; R33.9 Retention of urine, unspecified; F41.9 Anxiety disorder, unspecified; R45.1 Restlessness and agitation
CPT/HCPCS: 36415; 36416; 36600; 51702; 70450; 71045; 71275; 80048; 80051; 80053; 81003; 82330; 82803; 82805; 82962; 83605; 83690; 83735; 83880; 84145; 84443; 84484; 85025; 86140; 87040; 87486; 87581; 87633; 93005; 93306; 93970; 94640; 94660; 94760; 96365; 96367; 96372; 99291; C9113; J0456; J0696; J1100; J1650; J1815; J1940; J2270; J7050; J7512; J7626; Q0144; Q9967

== ENCOUNTER → 2023-10-04 12:59 | Outpatient (BNVA) | payer MEDICARE, SELFPAY | PROVIDERS: PCP Family Medicine; Visit Provider Nurse Practitioner Family | DX: Z09 Encounter for follow-up examination after completed treatment for conditions other than malignant neoplasm (principal) | CPT/HCPCS: 99213 ==

== ENCOUNTER → 2024-05-05 13:08 | Outpatient (BNVA) | payer MEDICARE, SELFPAY | PROVIDERS: Family Provider Nurse Practitioner Family; PCP Nurse Practitioner Family; Visit Provider Nurse Practitioner Family | DX: I10 Essential (primary) hypertension (principal); E11.9 Type 2 diabetes mellitus without complications; I50.30 Unspecified diastolic (congestive) heart failure; E55.9 Vitamin D deficiency, unspecified; G47.30 Sleep apnea, unspecified; J44.9 Chronic obstructive pulmonary disease, unspecified | CPT/HCPCS: 80053; 80061; 82306; 82607; 83036; 83735; 84443; 85025 ==

== ENCOUNTER → 2024-06-02 15:08 | Outpatient (BNVA) | payer MEDICARE, SELFPAY | PROVIDERS: Family Provider Nurse Practitioner Family; PCP Nurse Practitioner Family; Visit Provider Internal Medicine Cardiovascular Disease | DX: I11.0 Hypertensive heart disease with heart failure (principal); I50.30 Unspecified diastolic (congestive) heart failure; E11.9 Type 2 diabetes mellitus without complications; E03.8 Other specified hypothyroidism; Z79.84 Long term (current) use of oral hypoglycemic drugs | CPT/HCPCS: 99214 ==

== ENCOUNTER 2024-08-17 13:22 | Inpatient (IN) | payer MEDICARE, SELFPAY ==
[2024-08-17 13:26] VITALS: BP 132/82; PULSE 88; RESP 16; TEMP 36.6; O2SAT 93; BMI 31.3
--- NOTE | 2024-08-17 13:47 | XRR_ITS ---
PROCEDURE INFORMATION: Exam: XR Right Elbow Exam date and time: 08/17/2024 2:18 PM Age: 69 years old Clinical indication: Injury or trauma; Fall; Blunt trauma (contusions or hematomas); Elbow; Right TECHNIQUE: Imaging protocol: Radiologic exam of the right elbow. Views: 3 or more views. COMPARISON: CR (UP EX, ) 08/17/2024 2:18 PM FINDINGS: Bones/joints: Normal. Soft tissues: Normal. XR/XR elbow RT min 3V* [id number] IMPRESSION: No acute findings.
--- NOTE | 2024-08-17 13:47 | XRR_ITS ---
PROCEDURE INFORMATION: Exam: XR Right Hip Exam date and time: 08/17/2024 2:18 PM Age: 69 years old Clinical indication: Injury or trauma; Fall; Blunt trauma (contusions or hematomas); Right; Hip TECHNIQUE: Imaging protocol: Radiologic exam of the right hip. Views: 2 or 3 views hip with pelvis when performed. COMPARISON: No relevant prior studies available. FINDINGS: Bones/joints: Unremarkable. No acute fracture. Soft tissues: Unremarkable. XR/XR hip RT 2-3V wo/w pel* [id number] IMPRESSION: No acute findings.
--- NOTE | 2024-08-17 13:47 | XRR_ITS ---
PROCEDURE INFORMATION: Exam: XR Right Wrist Exam date and time: 08/17/2024 2:18 PM Age: 69 years old Clinical indication: Injury or trauma; Fall; Blunt trauma (contusions or hematomas); Wrist; Right TECHNIQUE: Imaging protocol: Radiologic exam of the right wrist. Views: 3 or more views. COMPARISON: CR (UP EX, ) 08/17/2024 2:18 PM FINDINGS: Bones/joints: No definite fracture or other acute abnormality. Joint spaces are unremarkable. Soft tissues: Normal. XR/XR wrist RT min 3V* [id number] IMPRESSION: No acute findings.
--- NOTE | 2024-08-17 14:00 | W.ED.EXTPRO ---
Documented by User: Blas Stewart DO 08/18/24 06:12 HPI - Extremity Problem General: Chief complaint: Extremity Injury, Lower Stated complaint: fall Time Seen by Provider: 08/17/24 13:46 History of Present Illness: 69-year-old male presents to the emergency room with complaint of right elbow right wrist and right hip pain. 2 days ago he fell when he stumbled on a step as he was going out a door from his home. He not strike his head did not lose consciousness he landed on his right side he is right elbow right wrist and right hip pain. He could partially bear weight but is still painful. He was not evaluated after the fall Associated symptoms: Deny chest pain, fever(s) or rash Related Data Previous Rx's ?Medication ?Instructions ?Recorded blood sugar diagnostic (Blood #100 ea 07/26/22 Glucose Test strips) blood-glucose meter (Blood Glucose #1 ea 07/26/22 Monitoring kit) lancets 31 gauge #100 ea 07/26/22 furosemide 40 mg tablet 20 mg (1/2 x 40 mg) PO DAILY PRN 10/08/23 edema or rapid weight gain #30 tabs fluoxetine 40 mg capsule 40 mg PO BID #180 caps 05/05/24 glipizide 5 mg tablet 5 mg PO BID #180 tabs 05/05/24 levothyroxine 100 mcg tablet 100 mcg PO DAILY #90 tabs 05/05/24 metformin 500 mg tablet,extended 500 mg PO BID 3 months #180 tabs 05/05/24 release 24 hr metoprolol tartrate 50 mg tablet See Rx Instructions .Route 05/05/24 .COMPLEX #180 tabs omeprazole 20 mg tablet,delayed 20 mg PO DAILY PRN Acid Reflux #90 05/05/24 release tabs pioglitazone 30 mg tablet See Rx Instructions .Route 05/05/24 .COMPLEX #90 tabs tamsulosin 0.4 mg capsule 0.4 mg PO DAILY #90 caps 05/05/24 trazodone 100 mg tablet See Rx Instructions .Route 05/05/24 .COMPLEX #90 tabs free style peter #1 ea 05/22/24 dapagliflozin propanediol 10 mg See Rx Instructions .Route 08/01/24 tablet (Farxiga) .COMPLEX #90 tabs Allergies Allergy/AdvReac Type Severity Reaction Status Date / Time No Known Allergies Allergy Verified 08/17/24 13:32 Review of Systems Const: Denies: fever(s) or chills Card: Denies: chest pain Resp: Denies: dyspnea GI: Denies: abdominal pain : Denies: dysuria, urinary frequency or urinary urgency Musc: Denies: neck pain or back pain Skin/Breast: Denies: rash PFSH ED PFSH: Medical History Enrolled in chronic care management Hypertension Diabetes Hypothyroidism Former smoker Insomnia Surgical History H/O colonoscopy 2020 NORMAL Family History Brother , LIVER Cancer Mother Cancer OVARIAN Sister , LUNG METS TO BRAIN No problems noted. Father , DUE TO ANEURYSM Hypertension Social History (Updated 08/18/24 @ 01:00 by Bryan Clark MD) Smoking and tobacco/nicotine status: former use of tobacco/nicotine Quit status (tobacco/nicotine): has quit using Year quit tobacco: 2013 Alcohol intake: never Substance/Drug Use: never Additional social history: He wants full CODE STATUS as discussed with him by Bryan Clark MD on 08/18/2024 Lives independently: Yes Household members: spouse Marital status: Current occupational status: retired Current occupation: [employer] FOR 21 YEARS Current gender identity: Male Physical Exam Const: GENERAL APPEARANCE: cooperative ORIENTATION/CONSCIOUSNESS: Yes awake, Yes oriented to person, Yes oriented to place and Yes oriented to time HENMT: COMMON NORMALS: normocephalic, atraumatic and hearing grossly normal bilaterally HEAD & SCALP: normocephalic and atraumatic Resp: COMMON NORMALS: normal respiratory effort, No retractions, No use of accessory muscles and clear to auscultation bilaterally AUSCULTATION: clear to auscultation bilaterally Cardio: COMMON NORMALS: regular rate, regular rhythm and No murmurs present (Cardio) RATE: regular rate RHYTHM: regular rhythm GI: COMMON NORMALS: Soft to palpation and No hepatosplenomegaly present AUSCULTATION: Yes normoactive bowel sounds PALPATION: Yes Soft to palpation, No Tenderness to palpation present (GI), No Guarding due to palpation present (GI) and Yes No hepatosplenomegaly present Extremity: COMMON NORMALS: normal to inspection, capillary refill normal, no clubbing, cyanosis or edema, no calf tenderness and no pedal edema OTHER: Abrasion over the olecranon process of the right elbow mild swelling at the right wrist. Patient is able to flex internally externally rotated the right hip but has sharp pain with passive range of motion that at times Neuro: SENSORIUM/ORIENTATION: Yes oriented to person, Yes oriented to place and Yes oriented to time Skin: COMMON NORMALS: no rashes or lesions noted GENERAL SKIN EXAM: no rashes or lesions noted Course Vital Signs: Vital signs: Vital Signs Temperature 98.3 F 08/18/24 04:06 Pulse Rate 74 08/18/24 04:06 Respiratory Rate 18 08/18/24 04:06 Blood Pressure 112/76 08/18/24 04:06 Pulse Oximetry 95 08/18/24 04:06 Oxygen Delivery Me thod Room Air 08/17/24 21:33 MDM - Extremity (Nontraumatic) Medical Decision Making Patient initially seen and fallen 2 days ago unable to bear weight. Plain film negative because patient cannot bear weight CT was done showed greater trochanter fracture nondisplaced. Discussed with orthopedics they recommended MRI. MRI is pending at the time of change of shift. Care signed out to Dr. Hagan at change of shift. See final notes for diagnosis and disposition. This patient was checked out to me at shift change. Elbow and wrist x-rays were negative. Hip x-ray showed no acute findings. Pelvis CT shows an acute nondisplaced fracture involving the right greater trochanter. Orthopedics was consulted regarding this, recommendations were MRI to ensure there was not an intertrochanteric extension. There is in fact intertrochanteric extension of bone marrow edema on MRI. The patient is admitted. Orthopedics aware, and is placed the patient on the OR schedule for morning. Hospitalist will admit the patient given comorbidities. He has seen the patient. Lab Data 08/17/24 22:07 08/17/24 22:07 Radiology Impressions Elbow X-Ray 08/17/24 13:47 IMPRESSION: No acute findings. Hip/Pelvis X-Ray 08/17/24 13:47 IMPRESSION: No acute findings. Wrist X-Ray 08/17/24 13:47 IMPRESSION: No acute findings. Pelvis CT 08/17/24 14:44 IMPRESSION: Acute nondisplaced fracture involving the right greater trochanter. The fracture does not appear to involve the femoral neck Hip MRI 08/17/24 16:38 IMPRESSION: 1. There is a hairline crack/nondisplaced fracture in the right proximal femur along the intertrochanteric region. This is occult on CT but on MRI does suggest this is a surgical fracture. Advise orthopedic consult. 2. Nondisplaced fracture of the right greater trochanter. 3. Right hip edema with very small effusion. Suspect partial tear along the right distal greater trochanteric gluteal insertion tendon. Laboratory Results Blood Type A Positive 08/17/24 20:36 Rho(D) Type Rh positive 08/17/24 20:36 Antibody Screen Negative 08/17/24 20:36 Discharge Plan Discharge Patient Disposition: Admitted As Inpatient Admit Provider: Bryan Clark Clinical Impression: Intertrochanteric fracture of right femur Condition: Stable Coding Level of Care Code ED [employer] Supervisor for Chg Fwd Documented by User: Jose Hagan DO 08/18/24 04:42 HPI - Extremity Problem General: Chief complaint: Extremity Injury, Lower Stated complaint: fall Time Seen by Provider: 08/17/24 13:46 Related Data Previous Rx's ?Medication ?Instructions ?Recorded blood sugar diagnostic (Blood #100 ea 07/26/22 Glucose Test strips) blood-glucose meter (Blood Glucose #1 ea 07/26/22 Monitoring kit) lancets 31 gauge #100 ea 07/26/22 furosemide 40 mg tablet 20 mg (1/2 x 40 mg) PO DAILY PRN 10/08/23 edema or rapid weight gain #30 tabs fluoxetine 40 mg capsule 40 mg PO BID #180 caps 05/05/24 glipizide 5 mg tablet 5 mg PO BID #180 tabs 05/05/24 levothyroxine 100 mcg tablet 100 mcg PO DAILY #90 tabs 05/05/24 metformin 500 mg tablet,extended 500 mg PO BID 3 months #180 tabs 05/05/24 release 24 hr metoprolol tartrate 50 mg tablet See Rx Instructions .Route 05/05/24 .COMPLEX #180 tabs omeprazole 20 mg tablet,delayed 20 mg PO DAILY PRN Acid Reflux #90 05/05/24 release tabs pioglitazone 30 mg tablet See Rx Instructions .Route 05/05/24 .COMPLEX #90 tabs tamsulosin 0.4 mg capsule 0.4 mg PO DAILY #90 caps 05/05/24 trazodone 100 mg tablet See Rx Instructions .Route 05/05/24 .COMPLEX #90 tabs free style peter #1 ea 05/22/24 dapagliflozin propanediol 10 mg See Rx Instructions .Route 08/01/24 tablet (Farxiga) .COMPLEX #90 tabs Allergies Allergy/AdvReac Type Severity Reaction Status Date / Time No Known Allergies Allergy Verified 08/17/24 13:32 [facility] ED PFSH: Medical History Enrolled in chronic care management Hypertension Diabetes Hypothyroidism Former smoker Insomnia Surgical History H/O colonoscopy 2019 NORMAL Family History Brother , LIVER Cancer Mother Cancer OVARIAN Sister , LUNG METS TO BRAIN No problems noted. Father , DUE TO ANEURYSM Hypertension Social History (Updated 08/18/24 @ 01:00 by Bryan Clark MD) Smoking and tobacco/nicotine status: former use of tobacco/nicotine Quit status (tobacco/nicotine): has quit using Year quit tobacco: 2012 Alcohol intake: never Substance/Drug Use: never Additional social history: He wants full CODE STATUS as discussed with him by Bryan Clark MD on 08/18/2024 Lives independently: Yes Household members: spouse Marital status: Current occupational status: retired Current occupation: [employer] FOR 21 YEARS Current gender identity: Male Course Vital Signs: Vital signs: Vital Signs Temperature 98.3 F 08/18/24 04:06 Pulse Rate 74 08/18/24 04:06 Respiratory Rate 18 08/18/24 04:06 Blood Pressure 112/76 08/18/24 04:06 Pulse Oximetry 95 08/18/24 04:06 Oxygen Delivery Me thod Room Air 08/17/24 21:33 MDM - Extremity (Nontraumatic) Medical Decision Making This patient was checked out to me at shift change. Elbow and wrist x-rays were negative. Hip x-ray showed no acute findings. Pelvis CT shows an acute nondisplaced fracture involving the right greater trochanter. Orthopedics was consulted regarding this, recommendations were MRI to ensure there was not an intertrochanteric extension. There is in fact intertrochanteric extension of bone marrow edema on MRI. The patient is admitted. Orthopedics aware, and is placed the patient on the OR schedule for morning. Hospitalist will admit the patient given comorbidities. He has seen the patient. Lab Data 08/17/24 22:07 08/17/24 22:07 Radiology Impressions Elbow X-Ray 08/17/24 13:47 IMPRESSION: No acute findings. Hip/Pelvis X-Ray 08/17/24 13:47 IMPRESSION: No acute findings. Wrist X-Ray 08/17/24 13:47 IMPRESSION: No acute findings. Pelvis CT 08/17/24 14:44 IMPRESSION: Acute nondisplaced fracture involving the right greater trochanter. The fracture does not appear to involve the femoral neck Hip MRI 08/17/24 16:38 IMPRESSION: 1. There is a hairline crack/nondisplaced fracture in the right proximal femur along the intertrochanteric region. This is occult on CT but on MRI does suggest this is a surgical fracture. Advise orthopedic consult. 2. Nondisplaced fracture of the right greater trochanter. 3. Right hip edema with very small effusion. Suspect partial tear along the right distal greater trochanteric gluteal insertion tendon. Laboratory Results Blood Type A Positive 08/17/24 20:36 Rho(D) Type Rh positive 08/17/24 20:36 Antibody Screen Negative 08/17/24 20:36 All radiology interpretation(s) finalized by discharge Discharge Plan Discharge Patient Disposition: Admitted As Inpatient Admit Provider: Bryan Clark Clinical Impression: Intertrochanteric fracture of right femur Condition: Stable Coding Level of Care Code ED [employer] Supervisor for Lucien Armstrong
[2024-08-17] MEDS: ketorolac 30 mg/mL INJ IVP (14:24)
--- NOTE | 2024-08-17 14:44 | CTR_ITS ---
PROCEDURE INFORMATION: Exam: CT Pelvis Without Contrast, Skeleton Exam date and time: 08/17/2024 3:14 PM Age: 69 years old Clinical indication: Injury or trauma; Fall; Blunt trauma (contusions or hematomas); Bilateral; Pelvic region TECHNIQUE: Imaging protocol: Computed tomography of the pelvis without contrast. Exam focused on the skeleton. Radiation optimization: All CT scans at this facility use at least one of these dose optimization techniques: automated exposure control; mA and/or kV adjustment per patient size (includes targeted exams where dose is matched to clinical indication); or iterative reconstruction. COMPARISON: CR (PELVIS, ) 08/17/2024 2:18 PM RADIATION DOSE METRICS: Total DLP (mGy-cm): 662.06 FINDINGS: Bones/joints: The bony structures demonstrate diffuse osteopenia. There is an acute, nondisplaced fracture that involves the greater trochanter of the right hip. The fracture does not appear to involve the femoral neck and does not appear to traverse the intertrochanteric portion of the femur. No other fracture identified. Soft tissues: A left inguinal hernia contains mesenteric fat. CT/[place] [facility] [id number] IMPRESSION: Acute nondisplaced fracture involving the right greater trochanter. The fracture does not appear to involve the femoral neck
--- NOTE | 2024-08-17 16:38 | MRR_ITS ---
PROCEDURE INFORMATION: Exam: MR Right Lower Extremity Joint Without Contrast; Hip Exam date and time: 08/17/2024 5:29 PM Age: 69 years old Clinical indication: Injury or trauma; Fall; Blunt trauma; Hip; Right; Additional info: Occult fracture, abnormal CT - greater trochanter FX TECHNIQUE: Imaging protocol: Magnetic resonance imaging of the right lower extremity joint without contrast. Exam focused on the hip. COMPARISON: CR (PELVIS, ) 08/17/2024 2:18 PM FINDINGS: Bones/joints: There is a large amount of fluid of the right greater trochanteric gluteal insertion. There is a nondisplaced fracture in the right greater trochanter. There is also a subtle hairline crack in the intertrochanteric proximal femur. There is marrow edema on series 401. On the T1 sequence, a subtle fracture line is depicted on series 501. Adjacent right hip edema. Questionable small contusion at the right posteromedial acetabulum. Soft tissues: Right hip swelling. MR/MR hip RT wo con* [id number] IMPRESSION: 1. There is a hairline crack/nondisplaced fracture in the right proximal femur along the intertrochanteric region. This is occult on CT but on MRI does suggest this is a surgical fracture. Advise orthopedic consult. 2. Nondisplaced fracture of the right greater trochanter. 3. Right hip edema with very small effusion. Suspect partial tear along the right distal greater trochanteric gluteal insertion tendon.
[2024-08-17] MEDS: ondansetron 2 mg/ML SDV 2 mL 4 MG IVP (17:14)
[2024-08-17] MEDS: morphine 4 mg/mL SDV 1 mL IVP ×2 (17:14→20:44)
[2024-08-17 17:31] VITALS: BP 141/86; PULSE 79; O2SAT 96
[2024-08-17 19:50] VITALS: BP 98/61; PULSE 66; RESP 16; O2SAT 97
[2024-08-17 20:09] VITALS: BP 110/78; PULSE 70; RESP 16; O2SAT 97
--- NOTE | 2024-08-17 20:26 | P.MISC_ITS ---
Miscellaneous Note Purpose of Documentation: Orthopedic note: Orthopedics was consulted as patient's found to have an isolated greater trochanteric fracture on imaging of the right hip has been difficulty with any types of weightbearing. As result recommended an MRI to rule out occult fracture. MRI has come back and shows extension from greater trochanteric fracture across the intertrochanteric region consistent with an nondisplaced intertrochanteric femur fracture. At this point I am spoken with emergency depa rtment would recommend hospitalist admission as primary and orthopedic consultation given this intertrochanteric femur fracture would recommend surgical intervention for earlier mobilization as well as assistance with pain control as well as to prevent any further propagation and displacement. Orthopedics will see and evaluate patient tomorrow morning recommend n.p.o. at midnight. Full consult note to follow tomorrow morning. Thank you for allow me to partake in the care of the patient. Nash Ingram DO
[2024-08-17 21:58] VITALS: BP 112/76; PULSE 74; RESP 18; TEMP 36.7; O2SAT 95
[2024-08-17 22:14] LABS: Glucose Point of Care 200 mg/dL (70-110)
[2024-08-17 22:15] LABS: Basophils % 0.4 %; Eosinophils # 0.1 10^3/uL (0.0-0.8); Eosinophils % 0.6 %; Hematocrit 53.8 % (37-53); Lymphocytes # 1.1 10^3/uL (0.8-4.8); Lymphocytes % 12.9 %; Mean Corpuscular HGB Conc 33.1 g/dL (30-55); Mean Corpuscular Volume 84.7 fl (82-101); Mean Platelet Volume 10.7 fL (7.4-10.4); Monocytes # 0.6 10^3/uL (0.2-0.9); Monocytes % 7.7 %; Neutrophils # 6.49 10^3/uL (1.8-7.7); Neutrophils % 77.9 %; Nucleated Red Blood Cells % 0 %; Platelet Count 161 10^3/cmm (157-399); Red Blood Count 6.35 10^6/uL (3.85-5.65); Red Cell Distribution Width 13.2 % (12.1-15.1); White Blood Count 8.32 10^3/uL (3.29-11.43)
[2024-08-17] MEDS: metoprolol tartrate 50 mg Tablet PO (22:16)
[2024-08-17] MEDS: heparin 5,000 unit/mL INJ 1 mL 5000 UNIT SUBCUT (22:16)
[2024-08-17] MEDS: lactated ringers 1,000 ML 100 ML IV (22:16)
[2024-08-17] MEDS: trazodone 100 mg Tablet PO (22:16)
[2024-08-17] MEDS: insulin lispro 100 unit/1 mL SUBCUT (22:53)
[2024-08-17 23:01] LABS: Alanine Aminotransferase 18 U/L (0-41); Albumin Level 3.6 g/dL (3.5-5.2); Alkaline Phosphatase 50 U/L (40-130); Anion Gap 13.1 (5-19); Aspartate Amino Transferase 13 U/L (0-40); Blood Urea Nitrogen 27 mg/dL (8-23); Calcium 8.6 mg/dL (8.5-10.5); Carbon Dioxide 30 mmol/L (22-29); Chloride 99 mmol/L (98-107); Creatinine Clr Calc Pharmacy 95.2972; Globulin 2.8 g/dL (1.3-4.6); Glomerular Filtration Rate 95.6 mL/min (90-130); Glucose 237 mg/dL (65-115); Osmolality Calculated 299 mOsm/kg (285-295); Potassium 4.1 mmol/L (3.5-5.1); Sodium 138 mmol/L (136-145); Thyroid Stimulating Hormone 4.09 uIU/mL (0.27-4.20); Total Protein 6.4 g/dL (6.6-8.7)
[2024-08-17 23:06] LABS: INR 1.08 (0.8-1.2)
[2024-08-17 23:07] LABS: Partial Thromboplastin Time 29.3 SECONDS (23.9-36.7)
[2024-08-17 23:50] VITALS: BP 114/74; PULSE 78; RESP 18; TEMP 36.7; O2SAT 95
[2024-08-18] VITALS (21 sets, daily range): BP systolic 103–162; BP diastolic 53–98; PULSE 62–78; RESP 15–18; TEMP 35.8–36.8; O2SAT 94–100
--- NOTE | 2024-08-18 00:55 | PM.HP ---
Providers/Chief Complaint Admitting Physician: Bryan Clark MD Primary Care Provider: ALEIDA Bejarano Chief Complaint: fall History of Present Illness Flako Petty is a 69 year old male fell 2 days ago on Sunday leaving his rental home. He states that the landing is uneven and he lost his balance fell on his right elbow and hip. CT scan showed an intertrochanteric fracture which was further evaluated by MRI and showed a femur fracture. Dr. Ingram was consulted prior to the MRI, recommended the MRI to look for occult fracture and has requested hospitalist admission. Patient has diabetes hypertension GERD and hypothyroidism. He denies that he became dizzy and fell but is clear that he lost his balance and fell due to uneven footing. Patient states that he called the school for help. 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 He was able to walk on his tippy toe and then drove 3 hours to get back from [place]. Patient tells me that he has been in pain for the last 2 days but ultimately decided to come to the hospital on urged from his Admitting orders were written based on report from ER physician. Subsequently I was unable to see the patient until after midnight Review of Systems Narrative: General no fevers chills night sweats Cardiovascular no history of coronary artery disease no chest pain on exertion or leg swelling Respiratory no shortness of breath cough wheezing. Has had pneumonia once GI no nausea vomiting constipation. He does have some diarrhea but states he had a colonoscopy 8 to 10 years ago which was okay negative Neuro no history of seizures or strokes Hematologic no history of clotting disorder or clots in legs or lungs Medications/Allergies Home Medications ?Medication ?Instructions ?Recorded ?Confirmed ?Last Taken ?Type blood sugar diagnostic (Blood #100 ea 07/26/22 07/29/24 Unknown Rx Glucose Test strips) blood-glucose meter (Blood Glucose #1 ea 07/26/22 07/29/24 Unknown Rx Monitoring kit) lancets 31 gauge #100 ea 07/26/22 07/29/24 Unknown Rx furosemide 40 mg tablet 20 mg (1/2 x 40 mg) PO DAILY PRN 10/08/23 07/29/24 Unknown Rx edema or rapid weight gain #30 tabs fluoxetine 40 mg capsule 40 mg PO BID #180 caps 05/05/24 07/29/24 Unknown Rx glipizide 5 mg tablet 5 mg PO BID #180 tabs 05/05/24 07/29/24 Unknown Rx levothyroxine 100 mcg tablet 100 mcg PO DAILY #90 tabs 05/05/24 07/29/24 Unknown Rx metformin 500 mg tablet,extended 500 mg PO BID 3 months #180 tabs 05/05/24 07/29/24 Unknown Rx release 24 hr metoprolol tartrate 50 mg tablet See Rx Instructions .Route 05/05/24 07/29/24 Unknown Rx .COMPLEX #180 tabs omeprazole 20 mg tablet,delayed 20 mg PO DAILY PRN Acid Reflux #90 05/05/24 07/29/24 Unknown Rx release tabs pioglitazone 30 mg tablet See Rx Instructions .Route 05/05/24 07/29/24 Unknown Rx .COMPLEX #90 tabs tamsulosin 0.4 mg capsule 0.4 mg PO DAILY #90 caps 05/05/24 07/29/24 Unknown Rx trazodone 100 mg tablet See Rx Instructions .Route 05/05/24 07/29/24 Unknown Rx .COMPLEX #90 tabs free style peter #1 ea 05/22/24 07/29/24 Unknown Rx dapagliflozin propanediol 10 mg See Rx Instructions .Route 08/01/24 Unknown Rx tablet (Farxiga) .COMPLEX #90 tabs Allergies Allergy/AdvReac Type Severity Reaction Status Date / Time No Known Allergies Allergy Verified 08/17/24 13:32 PFSH Acute PFSH: Medical History Enrolled in chronic care management Hypertension Diabetes Hypothyroidism Former smoker Insomnia Surgical History H/O colonoscopy 2020 NORMAL Family History Brother , LIVER Cancer Mother Cancer OVARIAN Sister , LUNG METS TO BRAIN No problems noted. 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 Current gender identity: Male Vitals/I&O/Wt Last Vital Signs Temp 98.1 F 08/17/24 23:50 Pulse 78 08/17/24 23:50 Resp 18 08/17/24 23:50 BP 114/74 08/17/24 23:50 Pulse Ox 95 08/17/24 23:50 O2 Del Method Room Air 08/17/24 21:33 08/17/24 08/17/24 08/18/24 14:59 22:59 06:59 Intake Total 0 / 0 Balance 0 / 0 Weight last 48 hrs Weight 93.44 kg Weight 93.44 kg Physical Exam Narrative: General well-developed well-nourished male in no apparent distress Neck no carotid bruits CV regular rate and rhythm Lungs clear to auscultation bilaterally Abdomen positive bowel sounds soft nontender Calves no tenderness cords pretrip well edema Legs he is able to move both legs but the right side is painful with movement. It is not foreshortened or rotated Data 08/17/24 22:07 08/17/24 22:07 A&P Assessment and plan (1) Intertrochanteric fracture of right femur: Patient is pretty stoic showing minimal signs of pain. Surgery planned the morning with Dr. Ingram (2) GERD (gastroesophageal reflux disease): Stable continue pantoprazole (3) Sleep apnea: Monitor for worsening sleeping disorder with pain meds. Consider using home CPAP settings or machine here (4) Hypothyroidism: TSH today 4.09 and in April was 4.64. Consider increasing levothyroxine to 112 mcg or 125 mcg/day from 100 on discharge (5) Diabetes: Sliding scale insulin and 1800-calorie ADA diet (6) Hypertension: Stable continue home blood pressure meds (7) COPD (chronic obstructive pulmonary disease): Stable will initiate inhalers as needed PDMP PDMP Reviewed: Not Reviewed Attestations Medical Necessity Statement*: Patient is admitted with a intertrochanteric femur fracture and will require surgery and greater than 2 midnights in the hospital for physical and Occupational Therapy as well as discharge planning Coding Level of Care Code 66319 Diagnoses Intertrochanteric fracture of right femur S72.141A GERD (gastroesophageal reflux disease) K21.9 Sleep apnea G47.30 Other specified hypothyroidism E03.8 Hypothyroidism type: other Type 2 diabetes mellitus without complication, without long-term current use of insulin E11.9 Diabetes mellitus type: type 2 Diabetes mellitus plant chief insulin use: without fdc use Diabetes mellitus complication status: without complication Hypertension, unspecified type I10 Hypertension type: unspecified COPD (chronic obstructive pulmonary disease) J44.9 Time Spent (min) 70
[2024-08-18] MEDS: levothyroxine 100 mcg Tablet PO (05:54)
[2024-08-18] MEDS: metoprolol tartrate 50 mg Tablet PO ×2 (08:17→17:46)
[2024-08-18] MEDS: docusate sodium 100 mg Capsule PO ×2 (08:17→17:46)
[2024-08-18] MEDS: fluoxetine 20 mg Capsule 40 MG PO (08:17)
[2024-08-18] MEDS: famotidine 20 mg Tablet PO ×2 (08:17→17:46)
[2024-08-18] MEDS: tamsulosin 0.4 mg Capsule PO (08:17)
[2024-08-18] MEDS: pioglitazone 30 mg Tablet PO (08:17)
[2024-08-18] MEDS: insulin lispro 100 unit/1 mL SUBCUT ×2 (08:18→21:18)
[2024-08-18 08:42] LABS: Glucose Point of Care 150 mg/dL (70-110)
--- NOTE | 2024-08-18 08:43 | PM.CONSULT ---
Documented by User: BALDO Palmer 08/18/24 09:31 Providers/Reason For Consult Consulting Physician/Specialty*: Dr. Nataly DO/orthopedic surgeon Reason for Consult*: Right hip fracture Requesting Physician: Dr. Terry DO/emergency department Attending Physician: Milena Peralta MD Primary Care Provider: ALEIDA Bejarano History of Present Illness History of Present Illness Flako Petty is a 69 year old male with a past medical history of diabetes, COPD and CHF. That has a right hip fracture. Patient was seen in the emergency department yesterday because he was complaining of right hip pain after a fall 2 days ago. Patient tripped when going on a doorway causing him to fall down and injure his right hip.. He had pain with weightbearing on his right hip. Patient is not on a blood thinner. He ambulated without any assistive devices before fall. Denies any cane or walker use before fall. Review of Systems General: Reports: 10 or more systems reviewed and unremarkable except in HPI and below Const: Denies: fever(s), chills or body aches ENMT: Denies: throat pain, ear or mastoid pain, nasal discharge or nasal congestion Card: Denies: chest pain or palpitations Resp: Denies: dyspnea, productive cough or non-productive cough GI: Denies: abdominal pain, nausea, vomiting, diarrhea or constipation : Denies: dysuria Musc: Reports: extremity pain (Right hip pain acute) and limited range of motion (Right hip) Skin/Breast: Denies: new lesions Medications/Allergies Home Medications ?Medication ?Instructions ?Recorded ?Confirmed ?Last Taken ?Type blood sugar diagnostic (Blood #100 ea 07/26/22 08/18/24 Unknown Rx Glucose Test strips) blood-glucose meter (Blood Glucose #1 ea 07/26/22 08/18/24 Unknown Rx Monitoring kit) lancets 31 gauge #100 ea 07/26/22 08/18/24 Unknown Rx fluoxetine 40 mg capsule 40 mg PO BID #180 caps 05/05/24 08/18/24 08/17/24 Rx glipizide 5 mg tablet 5 mg PO BID #180 tabs 05/05/24 08/18/24 Unknown Rx levothyroxine 100 mcg tablet 100 mcg PO DAILY #90 tabs 05/05/24 08/18/24 08/18/24 Rx metformin 500 mg tablet,extended 500 mg PO BID 3 months #180 tabs 05/05/24 08/18/24 Unknown Rx release 24 hr metoprolol tartrate 50 mg tablet See Rx Instructions .Route 05/05/24 08/18/24 08/17/24 Rx .COMPLEX #180 tabs omeprazole 20 mg tablet,delayed 20 mg PO DAILY PRN Acid Reflux #90 05/05/24 08/18/24 08/17/24 Rx release tabs pioglitazone 30 mg tablet See Rx Instructions .Route 05/05/24 08/18/24 08/17/24 Rx .COMPLEX #90 tabs tamsulosin 0.4 mg capsule 0.4 mg PO DAILY #90 caps 05/05/24 08/18/24 08/17/24 Rx trazodone 100 mg tablet See Rx Instructions .Route 05/05/24 08/18/24 08/16/24 Rx .COMPLEX #90 tabs free style peter #1 ea 05/22/24 08/18/24 Unknown Rx dapagliflozin propanediol 10 mg See Rx Instructions .Route 08/01/24 08/18/24 08/17/24 Rx tablet (Farxiga) .COMPLEX #90 tabs diclofenac sodium 75 mg 75 mg PO BID 08/18/24 08/18/24 08/17/24 History tablet,delayed release methylprednisolone 4 mg tablets in See Rx Instructions .Route .COMPLEX 08/18/24 08/18/24 08/17/24 History a dose pack tirzepatide 2.5 mg/0.5 mL 2.5 mg SUBCUT Q7D 08/18/24 08/18/24 08/18/24 History subcutaneous pen injector (Stephanie) tramadol 50 mg tablet 50 mg PO Q6H PRN Pain 08/18/24 08/18/24 Unknown History Allergies Allergy/AdvReac Type Severity Reaction Status Date / Time No Known Allergies Allergy Verified 08/17/24 13:32 Current Medications Generic Name Dose Route Start Last Admin Trade Name Freq PRN Reason Stop Dose Admin Docusate Sodium 100 mg 08/18/24 09:00 08/18/24 08:17 Docusate Sodium 100 Mg Capsule PO 100 mg BID DAFNE Administration Famotidine 20 mg 08/18/24 09:00 08/18/24 08:17 Famotidine 20 Mg Tablet PO 20 mg BID DAFNE Administration Fluoxetine HCl 40 mg 08/18/24 09:00 08/18/24 08:17 Fluoxetine 20 Mg Capsule PO 40 mg DAILY DAFNE Administration Heparin Sodium (Porcine) 5,000 unit 08/17/24 22:00 08/17/24 22:16 Heparin 5,000 Unit/Ml Inj 1 Ml SUBCUT 5,000 unit Q12H DAFNE Administration Lactated Ringer's 1,000 mls @ 100 mls/hr 08/17/24 21:29 08/17/24 22:16 Lactated Ringers IV 100 mls/hr .Q10H DAFNE Administration Insulin Human Lispro 0 unit 08/17/24 21:29 08/18/24 08:18 Insulin Lispro 100 Unit/1 Ml SUBCUT 4 unit WM&BEDTIME DAFNE Administration Protocol Levothyroxine Sodium 100 mcg 08/18/24 07:00 08/18/24 05:54 Levothyroxine 100 Mcg Tablet PO 100 mcg ACBREAKFAST DAFNE Administration Metformin HCl 500 mg 08/18/24 09:00 08/18/24 08:20 Metformin Xr 500 Mg Tablet PO Not Given BID DAFNE Metoprolol Tartrate 50 mg 08/17/24 21:29 08/18/24 08:17 Metoprolol Tartrate 50 Mg Tablet PO 50 mg BID DAFNE Administration Pioglitazone HCl 30 mg 08/18/24 09:00 08/18/24 08:17 Pioglitazone 30 Mg Tablet PO 30 mg DAILY DAFNE Administration Tamsulosin HCl 0.4 mg 08/18/24 09:00 08/18/24 08:17 Tamsulosin 0.4 Mg Capsule PO 0.4 mg DAILY DAFNE Administration Trazodone HCl 100 mg 08/17/24 21:29 08/17/24 22:16 Trazodone 100 Mg Tablet PO 100 mg BEDTIME DAFNE Administration PFSH Acute PFSH: Medical History Enrolled in chronic care management Hypertension Diabetes Hypothyroidism Former smoker Insomnia Surgical History H/O colonoscopy 2020 NORMAL Family History Brother , LIVER Cancer Mother Cancer OVARIAN Sister , LUNG METS TO BRAIN No problems noted. 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 Current gender identity: Male Vitals/I&O/Wt Last Vital Signs Temp 97.6 F 08/18/24 07:42 Pulse 67 08/18/24 07:42 Resp 16 08/18/24 07:42 BP 148/80 08/18/24 07:42 Pulse Ox 96 08/18/24 07:42 O2 Del Method Nasal Cannula 08/18/24 07:42 08/17/24 08/18/24 08/18/24 22:59 06:59 14:59 Output Total 400 / 400 Balance -400 / -400 Weight last 48 hrs Weight 206 lb Weight 206 lb Weight 206 lb Physical Exam Const: COMMON NORMALS: no acute distress and alert Resp: COMMON NORMALS: normal respiratory effort and No retractions Cardio: COMMON NORMALS: Peripheral pulses 2+ throughout PERIPHERAL PULSES: Peripheral pulses 2+ throughout Extremity: NARRATIVE EXTREMITY EXAM: (Right) lower extremity-leg is shortened and externally rotated. Positive logroll test. Tenderness to palpation right hip. compartments are soft and compressible. Patient can Wiggle toes. Toes are warm and well-perfused. Pedal pulse 2+. Secondary assessment of other extremities. Upper extremities-no visible injuries, abrasions. Full range of motion in shoulders, elbows and wrist. no tenderness to palpation of shoulders or wrist. (Left) lower extremity-no visible injury or trauma seen. Full range of motion in hip. Negative logroll test. Patient able to perform straight leg raise and can dorsiflex plantarflex foot. Pedal pulse 2+ and patient can wiggle toes. Neuro: SENSORIUM/ORIENTATION: Yes alert Skin: GENERAL SKIN EXAM: dry skin Data 08/17/24 22:07 08/17/24 22:07 MRI: Radiologist's impression: Patient: Flako Petty Unit #: [id number] : 1955 Age/Sex: 69 / M ADM Date: 08/17/24 Loc: ER Room/Bed: Attending Dr: Ordering Provider/Ordering MD: Blas Stewart DO Date of Service: 08/17/24 Procedure(s): MR hip RT wo con* [id number] Accession Number(s): [id number] Report Number: [id number] PROCEDURE INFORMATION: Exam: MR Right Lower Extremity Joint Without Contrast; Hip Exam date and time: 08/17/2024 5:29 PM Age: 69 years old Clinical indication: Injury or trauma; Fall; Blunt trauma; Hip; Right; Additional info: Occult fracture, abnormal CT - greater trochanter FX TECHNIQUE: Imaging protocol: Magnetic resonance imaging of the right lower extremity joint without contrast. Exam focused on the hip. COMPARISON: CR (PELVIS, ) 08/17/2024 2:18 PM FINDINGS: Bones/joints: There is a large amount of fluid of the right greater trochanteric gluteal insertion. There is a nondisplaced fracture in the right greater trochanter. There is also a subtle hairline crack in the intertrochanteric proximal femur. There is marrow edema on series 401. On the T1 sequence, a subtle fracture line is depicted on series 501. Adjacent right hip edema. Questionable small contusion at the right posteromedial acetabulum. Soft tissues: Right hip swelling. MR/MR hip RT wo con* [id number] IMPRESSION: 1. There is a hairline crack/nondisplaced fracture in the right proximal femur along the intertrochanteric region. This is occult on CT but on MRI does suggest this is a surgical fracture. Advise orthopedic consult. 2. Nondisplaced fracture of the right greater trochanter. 3. Right hip edema with very small effusion. Suspect partial tear along the right distal greater trochanteric gluteal insertion tendon. Dictated By: Dm Yao Ortho: Radiologist's impression: Patient: Flako Petty Unit #: [id number] : 1955 Age/Sex: 69 / M ADM Date: 08/17/24 Loc: ER Room/Bed: Attending Dr: Ordering Provider/Ordering MD: Blas Stewart DO Date of Service: 08/17/24 Procedure(s): XR hip RT 2-3V wo/w pel* [id number] Accession Number(s): [id number] Report Number: [id number] PROCEDURE INFORMATION: Exam: XR Right Hip Exam date and time: 08/17/2024 2:18 PM Age: 69 years old Clinical indication: Injury or trauma; Fall; Blunt trauma (contusions or hematomas); Right; Hip TECHNIQUE: Imaging protocol: Radiologic exam of the right hip. Views: 2 or 3 views hip with pelvis when performed. COMPARISON: No relevant prior studies available. FINDINGS: Bones/joints: Unremarkable. No acute fracture. Soft tissues: Unremarkable. XR/XR hip RT 2-3V wo/w pel* [id number] IMPRESSION: No acute findings. Dictated By: Jose L Espinal MD Other CT: Radiologist's impression: Ordering Provider/Ordering MD: Blas Stewart DO Date of Service: 08/17/24 Procedure(s): CT pelvis wo con [id number] Accession Number(s): [id number] Report Number: [id number] PROCEDURE INFORMATION: Exam: CT Pelvis Without Contrast, Skeleton Exam date and time: 08/17/2024 3:14 PM Age: 69 years old Clinical indication: Injury or trauma; Fall; Blunt trauma (contusions or hematomas); Bilateral; Pelvic region TECHNIQUE: Imaging protocol: Computed tomography of the pelvis without contrast. Exam focused on the skeleton. Radiation optimization: All CT scans at this facility use at least one of these dose optimization techniques: automated exposure control; mA and/or kV adjustment per patient size (includes targeted exams where dose is matched to clinical indication); or iterative reconstruction. COMPARISON: CR (PELVIS, ) 08/17/2024 2:18 PM RADIATION DOSE METRICS: Total DLP (mGy-cm): 662.06 FINDINGS: Bones/joints: The bony structures demonstrate diffuse osteopenia. There is an acute, nondisplaced fracture that involves the greater trochanter of the right hip. The fracture does not appear to involve the femoral neck and does not appear to traverse the intertrochanteric portion of the femur. No other fracture identified. Soft tissues: A left inguinal hernia contains mesenteric fat. CT/CT pelvis wo con [id number] IMPRESSION: Acute nondisplaced fracture involving the right greater trochanter. The fracture does not appear to involve the femoral neck Dictated By: Ruben Gonzales MD A&P Assessment and plan (1) Intertrochanteric fracture of right femur: Plan Plan: -Imaging and Labs reviewed -Hospitalist on board for medical management. -VTE prophylaxis -Nonweightbearing on right leg -Pain control -N.p.o. today -Surgery today in the afternoon for Right hip short trochanteric femur nail PDMP PDMP Reviewed: Not Reviewed Coding Level of Care Code Acute Code for [facility]wd Diagnoses Intertrochanteric fracture of right femur S72.141A Documented by User: Nash Ingram DO 08/18/24 12:44 Medications/Allergies Home Medications ?Medication ?Instructions ?Recorded ?Confirmed ?Last Taken ?Type blood sugar diagnostic (Blood #100 ea 07/26/22 08/18/24 Unknown Rx Glucose Test strips) blood-glucose meter (Blood Glucose #1 ea 07/26/22 08/18/24 Unknown Rx Monitoring kit) lancets 31 gauge #100 ea 07/26/22 08/18/24 Unknown Rx fluoxetine 40 mg capsule 40 mg PO BID #180 caps 05/05/24 08/18/24 08/17/24 Rx glipizide 5 mg tablet 5 mg PO BID #180 tabs 05/05/24 08/18/24 Unknown Rx levothyroxine 100 mcg tablet 100 mcg PO DAILY #90 tabs 05/05/24 08/18/24 08/18/24 Rx metformin 500 mg tablet,extended 500 mg PO BID 3 months #180 tabs 05/05/24 08/18/24 Unknown Rx release 24 hr metoprolol tartrate 50 mg tablet See Rx Instructions .Route 05/05/24 08/18/24 08/17/24 Rx .COMPLEX #180 tabs omeprazole 20 mg tablet,delayed 20 mg PO DAILY PRN Acid Reflux #90 05/05/24 08/18/24 08/17/24 Rx release tabs pioglitazone 30 mg tablet See Rx Instructions .Route 05/05/24 08/18/24 08/17/24 Rx .COMPLEX #90 tabs tamsulosin 0.4 mg capsule 0.4 mg PO DAILY #90 caps 05/05/24 08/18/24 08/17/24 Rx trazodone 100 mg tablet See Rx Instructions .Route 05/05/24 08/18/24 08/16/24 Rx .COMPLEX #90 tabs free style peter #1 ea 05/22/24 08/18/24 Unknown Rx dapagliflozin propanediol 10 mg See Rx Instructions .Route 08/01/24 08/18/24 08/17/24 Rx tablet (Farxiga) .COMPLEX #90 tabs diclofenac sodium 75 mg 75 mg PO BID 08/18/24 08/18/24 08/17/24 History tablet,delayed release methylprednisolone 4 mg tablets in See Rx Instructions .Route .COMPLEX 08/18/24 08/18/24 08/17/24 History a dose pack tirzepatide 2.5 mg/0.5 mL 2.5 mg SUBCUT Q7D 08/18/24 08/18/24 08/18/24 History subcutaneous pen injector (Gilbertunhermilaro) tramadol 50 mg tablet 50 mg PO Q6H PRN Pain 08/18/24 08/18/24 Unknown History Allergies Allergy/AdvReac Type Severity Reaction Status Date / Time No Known Allergies Allergy Verified 08/17/24 13:32 PFSH Acute PFSH: Medical History Enrolled in chronic care management Hypertension Diabetes Hypothyroidism Former smoker Insomnia Surgical History H/O colonoscopy 2020 NORMAL Family History Brother , LIVER Cancer Mother Cancer OVARIAN Sister , LUNG METS TO BRAIN No problems noted. 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 Positive logroll test. Tenderness to palpation right hip. Positive Stinchfield examination, compartments are soft and compressible. Patient can Wiggle toes. Toes are warm and well-perfused. Pedal pulse 2+. Secondary assessment of other extremities. Upper extremities-no visible injuries, small abrasion to the right elbow, minimal tenderness palpation about the right elbow and wrist with full range of motion. Full range of motion in shoulders, elbows and wrist. no tenderness to palpation of shoulders or wrist. (Left) lower extremity-no visible injury or trauma seen. Full range of motion in hip. Negative logroll test. Patient able to perform straight leg raise and can dorsiflex plantarflex foot. Pedal pulse 2+ and patient can wiggle toes. Data 08/17/24 22:07 08/17/24 22:07 A&P Assessment and plan (1) Intertrochanteric fracture of right femur: Plan Plan: -Imaging and Labs reviewed -Hospitalist on board for medical management. -VTE prophylaxis -Nonweightbearing on right leg -Pain control -N.p.o. today -Surgery today in the afternoon for Right hip short trochanteric femur nail Orthopedic attending addendum: Patient this point in time is seen evaluated by myself I reviewed and agree with PAs assessment and plan. Patient had a fall on Sunday onto the right hip and was hardly able to bear any weight. Due to his continued persistent pain and difficulty with any weightbearing activities brought to emergency department workup demonstrates after an MRI showed a nondisplaced intertrochanteric femur fracture. At this point in time he is admitted by hospitalist orthopedics consulted. At this point time saw and evaluated patient with and daughter at bedside. We talked about his treatment options as well as the image findings. Patient this point time given he is difficulty with any weightbearing as well as a nondisplaced intertrochanteric femur fracture recommendation would be for right trochanteric femur nail. Plan and benefit for this would be for pain control as well as early mobilization we talked about this in detail as far as the ins and outs procedure with risk benefits complication alternatives with surgery. Risk of surgery include but not limited to make it better make it worse, injury to nerves vessels or tendons, infection, hardware prominence hardware failure, persistent pain, nonunion, blood loss. Understand risk of surgery patient elects proceed with surgical invention. All questions have been answered at this time. Will proceed to the OR today for right hip trochanteric femur nail. PDMP PDMP Reviewed: Not Reviewed Coding Level of Care Code Acute Code for [facility] Diagnoses Intertrochanteric fracture of right femur S72.141A
[2024-08-18] MEDS: lactated ringers 1,000 ML 100 ML IV ×2 (09:44→17:47)
--- NOTE | 2024-08-18 09:54 | PC.CHAP ---
Pastoral Care Encounter/Spiritual Assessment Type of Contact [] Declined knurling machine tender visit [] Patient/Family/Request visit [] Outpatient visit [] Follow-up visit [] Physician referral [] Code/Alert [x] Routine visit [] Staff referral [] Actively dying [] Patient sleeping [] Family support [] [] Out of room [] Palliative care [] [] Receiving care in room [] Pre-surgical visit [] Trauma [] Long length of stay [] ICU visit [] Other: Relational/Emotional Strength [] Patient feels connected with others/family/visitors/staff [] Distress [] Loneliness/isolation [] Abandonment Spirituality of Patient [x] Person of Faby [] Attends Restorationist of their Faby [x] Believes in Prayer [] Reads Bible or Yarsanism materials [] There are Spiritual issues to be addressed Health Informatics Instructor Interventions [x] Prayer [x] Active listening [] Non-anxious presence [] Spiritual/emotional support [] Crisis/trauma care [] Spiritual counseling [] Bereavement support [] Provided bereavement packet [x] Provided Bible/devotional materials [] Provided toy/stuffed animal, coloring book to patient or family member [] Provided Communion [] Anointing/[place] [] Salvation [x] Completed spiritual assessment [] Other: Impact on Illness or Injury [] Angry [] Fearful [] Anxious [] Often cries [] Exhaustion [] Unable to work [] Unable to attend synagogue [] Unable to walk/stand [] Unable to read [] Unable to drive [] Unable to eat/drink [] Unable to sleep [] Unable to be with family [] Patient intubated [] Other: Summary Time spent with patient 10 min
--- NOTE | 2024-08-18 10:06 | PC.SOCIAL ---
IMM Update Pg. 2 of IMM updated and copy provided.
--- NOTE | 2024-08-18 10:59 | PC.NURSE ---
Patient refused metforman. Stated he started on mounjoro last week
[2024-08-18 11:24] LABS: Glucose Point of Care 131 mg/dL (70-110)
[2024-08-18 12:20] LABS: Glucose Point of Care 91 mg/dL (70-110)
[2024-08-18] MEDS: sodium chloride 0.9% 1,000 ML 30 ML IV (12:35)
[2024-08-18] MEDS: acetaminophen 1,000 MG/100 ML PIGGYBACK 400 MG IV (12:41)
--- NOTE | 2024-08-18 12:44 | W.PM.OPSUD ---
Surgery/Procedure H&P Update DATE OF PROCEDURE: August 18, 2024 DATE H&P PERFORMED: 08/18/24 H&P UPDATE INFORMATION: I have reviewed H&P completed within last 30 days, I have examined patient prior to procedure and No changes to prior documentation PREOP DIAGNOSIS: right hip intertrochanteric femur fracture PRIMARY INDICATION FOR PROCEDURE: Right hip intertrochanteric femur fracture PLANNED PROCEDURE: Operation Date: 08/18/24 17:20 Proposed Procedures p Trochanteric Femoral Nail(Right) - Nash Ingram DO
--- NOTE | 2024-08-18 12:48 | SUR.PREOP ---
1245 patient states he does not want a catheter
--- NOTE | 2024-08-18 13:13 | SUR.PREOP ---
Patient takes Mounjaro shot on Wednesdays and has not had it since last sunday 08/13. Patient thought he was given this med this morning 08/18 but he was actually given regular insulin. Patient's said she did not give him and mounjaro and that he only takes it on Wednesdays.
--- NOTE | 2024-08-18 13:29 | ANES.PREANE2 ---
Pre-Anesthetic Assessment Height/Weight: Height 5 ft 8 in Weight 206 lb Temp Pulse Resp BP Pulse Ox O2 Del Method 97.8 F 62 17 118/78 96 Nasal Cannula 08/18/24 12:15 08/18/24 12:15 08/18/24 12:15 08/18/24 12:15 08/18/24 12:15 08/18/24 11:42 Preop Diagnosis: right hip intertrochanteric femur fracture Operation Date: 08/18/24 17:20 Proposed Procedures p Trochanteric Femoral Nail(Right) - Nash Cabell, DO Was Beta Connor taken within 24 hours: Yes Was Clonidine taken within 24 hours: N/A Last intake: Intake Last Liquid Date 08/17/24 Last Liquid Time 23:00 Last Solid Date 08/17/24 Last Solid Time 23:00 Social No alcohol and No tobacco Exam alert, oriented x 3 and regular rate & rhythm Airway Submandibular: within normal limits Cervical ROM: within normal limits Mallampati: Class III Comments: Comments: edentulous Anesthetic Plan ASA status: 3 Anesthesia: General Other: No prior issues with anesthesia Patient admitted today for intertrochanteric fracture History of diabetes Hypertension on metoprolol Hypothyroidism on Synthroid GERD, controlled with omeprazole COPD Prior echo 2023 showing EF of 60% Plan for general anesthesia Medications/Allergies Home Medications ?Medication ?Instructions ?Recorded ?Confirmed ?Last Taken ?Type blood sugar diagnostic (Blood #100 ea 07/26/22 08/18/24 Unknown Rx Glucose Test strips) blood-glucose meter (Blood Glucose #1 ea 07/26/22 08/18/24 Unknown Rx Monitoring kit) lancets 31 gauge #100 ea 07/26/22 08/18/24 Unknown Rx fluoxetine 40 mg capsule 40 mg PO BID #180 caps 05/05/24 08/18/24 08/17/24 Rx glipizide 5 mg tablet 5 mg PO BID #180 tabs 05/05/24 08/18/24 Unknown Rx levothyroxine 100 mcg tablet 100 mcg PO DAILY #90 tabs 05/05/24 08/18/24 08/18/24 Rx metformin 500 mg tablet,extended 500 mg PO BID 3 months #180 tabs 05/05/24 08/18/24 Unknown Rx release 24 hr metoprolol tartrate 50 mg tablet See Rx Instructions .Route 05/05/24 08/18/24 08/17/24 Rx .COMPLEX #180 tabs omeprazole 20 mg tablet,delayed 20 mg PO DAILY PRN Acid Reflux #90 05/05/24 08/18/24 08/17/24 Rx release tabs pioglitazone 30 mg tablet See Rx Instructions .Route 05/05/24 08/18/24 08/17/24 Rx .COMPLEX #90 tabs tamsulosin 0.4 mg capsule 0.4 mg PO DAILY #90 caps 05/05/24 08/18/24 08/17/24 Rx trazodone 100 mg tablet See Rx Instructions .Route 05/05/24 08/18/24 08/16/24 Rx .COMPLEX #90 tabs free style peter #1 ea 05/22/24 08/18/24 Unknown Rx dapagliflozin propanediol 10 mg See Rx Instructions .Route 08/01/24 08/18/24 08/17/24 Rx tablet (Farxiga) .COMPLEX #90 tabs diclofenac sodium 75 mg 75 mg PO BID 08/18/24 08/18/24 08/17/24 History tablet,delayed release methylprednisolone 4 mg tablets in See Rx Instructions .Route .COMPLEX 08/18/24 08/18/24 08/17/24 History a dose pack tirzepatide 2.5 mg/0.5 mL 2.5 mg SUBCUT Q7D 08/18/24 08/18/24 08/13/24 History subcutaneous pen injector (Stephanie) tramadol 50 mg tablet 50 mg PO Q6H PRN Pain 08/18/24 08/18/24 Unknown History Allergies Allergy/AdvReac Type Severity Reaction Status Date / Time No Known Allergies Allergy Verified 08/17/24 13:32 Current Medications Generic Name Dose Route Start Last Admin Trade Name Freq PRN Reason Stop Dose Admin Docusate Sodium 100 mg 08/18/24 09:00 08/18/24 08:17 Docusate Sodium 100 Mg Capsule PO 100 mg BID DAFNE Administration Famotidine 20 mg 08/18/24 09:00 08/18/24 08:17 Famotidine 20 Mg Tablet PO 20 mg BID DAFNE Administration Fluoxetine HCl 40 mg 08/18/24 09:00 08/18/24 08:17 Fluoxetine 20 Mg Capsule PO 40 mg DAILY DAFNE Administration Heparin Sodium (Porcine) 5,000 unit 08/17/24 22:00 08/18/24 10:54 Heparin 5,000 Unit/Ml Inj 1 Ml SUBCUT Not Given Q12H DAFNE Lactated Ringer's 1,000 mls @ 100 mls/hr 08/17/24 21:29 08/18/24 09:44 Lactated Ringers IV 100 mls/hr .Q10H DAFNE Administration Sodium Chloride 1,000 mls @ 30 mls/hr 08/18/24 12:30 08/18/24 12:35 Sodium Chloride 0.9% IV 30 mls/hr .Q24H DAFNE Administration Insulin Human Lispro 0 unit 08/17/24 21:29 08/18/24 11:28 Insulin Lispro 100 Unit/1 Ml SUBCUT Not Given WM&BEDTIME DAFNE Protocol Levothyroxine Sodium 100 mcg 08/18/24 07:00 08/18/24 05:54 Levothyroxine 100 Mcg Tablet PO 100 mcg ACBREAKFAST DAFNE Administration Metformin HCl 500 mg 08/18/24 09:00 08/18/24 08:20 Metformin Xr 500 Mg Tablet PO Not Given BID DAFNE Metoprolol Tartrate 50 mg 08/17/24 21:29 08/18/24 08:17 Metoprolol Tartrate 50 Mg Tablet PO 50 mg BID DAFNE Administration Pioglitazone HCl 30 mg 08/18/24 09:00 08/18/24 08:17 Pioglitazone 30 Mg Tablet PO 30 mg DAILY DAFNE Administration Tamsulosin HCl 0.4 mg 08/18/24 09:00 08/18/24 08:17 Tamsulosin 0.4 Mg Capsule PO 0.4 mg DAILY DAFNE Administration Trazodone HCl 100 mg 08/17/24 21:29 08/17/24 22:16 Trazodone 100 Mg Tablet PO 100 mg BEDTIME DAFNE Administration PFS Anesthesia Medical History Enrolled in chronic care management Hypertension Diabetes Hypothyroidism Former smoker Insomnia Surgical History H/O colonoscopy 2020 NORMAL Family History Brother , LIVER Cancer Mother Cancer OVARIAN Sister , LUNG METS TO BRAIN No problems noted. 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 Current gender identity: Male Data Anesthesia 08/17/24 22:07 08/17/24 22:07 Short CBC 08/17/24 Range/Units 22:07 WBC 8.32 (3.29-11.43) 10^3/uL Hgb 17.80 H (11.27-16.99) g/dL Hct 53.8 H (37-53) % MCV 84.7 (82-101) fl Plt Count 161 (157-399) 10^3/cmm Neut % (Auto) 77.9 % Neut # (Auto) 6.49 (1.8-7.7) 10^3/uL BMP 08/17/24 22:07 Sodium 138 Potassium 4.1 Chloride 99 Carbon Dioxide 30 H BUN 27 H Creatinine 0.8 Glucose 237 H Calcium 8.6 Liver Function 08/17/24 Range/Units 22:07 Total Bilirubin 1.0 (0.15-1.2) mg/dL AST 13 (0-40) U/L ALT 18 (0-41) U/L Alkaline Phosphatase 50 (40-130) U/L Albumin 3.6 (3.5-5.2) g/dL Blood Bank 08/17/24 20:36 Blood Type A Positive Rho(D) Type Rh positive Antibody Screen Negative Coags 08/17/24 22:07 PT 14.80 INR 1.08 APTT 29.3 Cardiac Studies: Echocardiogram 09/06/23 Echocardiogram Limited Views 05/19/22 Sestamibi Stress Test (Cardiology) 08/28/22
[2024-08-18] MEDS: fentaNYL 50 mcg/mL INJ 2mL IVP ×2 (13:54→16:51)
--- NOTE | 2024-08-18 14:32 | PM.MISC ---
Miscellaneous Note Note: Seen this morning. Has been n.p.o. since midnight. MRI has resulted. Plan to go for surgery today.
[2024-08-18] MEDS: ceFAZolin 2,000 mg SDV 2000 MG IVP (15:15)
[2024-08-18] MEDS: tranexamic acid 1,000 mg/10mL SDV 1000 MG (15:18)
--- NOTE | 2024-08-18 16:21 | W.PM.BPON ---
Date of Procedure: 08/18/2024 Surgeon: Nash Ingram DO Acute Coordinator(s): Freddie Ingram PA-C Procedure(s) performed: Right hip trochanteric femur nail Findings of the procedure(s): Patient underwent procedure as planned without issues or complications. Estimated blood loss: 75 mL Specimen(s) removed: None Post-operative diagnosis: Right hip intertrochanteric femur fracture
--- NOTE | 2024-08-18 16:22 | P.OP_ITS ---
Operative Report Date of procedure: August 18, 2024 Surgeon: Nash Ingram DO Eap Consultant: Freddie Ingram PA-C: PA was necessary for assistance in this case with leg positioning retraction and protection of neurovascular structures, assistance with instrumentation for fixation as well as wound closure and dressing application. Procedure: Preoperative diagnosis: Nondisplaced right hip intertrochanteric femur fracture post-op diagnosis: Same Procedure done: Right intertrochanteric femur fracture ORIF with cephalomedullary?nail Implants: Jeremy gamma?nail?short 10 mm x 170 mm x 125 degree Lag screw 10.5 mm x 100?mm Distal locking screw 5 mm x 37.5 mm Surgeon: Nash Ingram DO Estimated blood loss: 75 mL IV fluids: 800 mL Urine output: None Complications: See operative report Findings: See operative report narrative Condition: stable Disposition: Floor Brief History: Patient sustained a fall and was found to have a an injury to right hip brought to the emergency department and found to have after work up a nondisplaced right hip intertrochanteric femur fracture. Patient was unable to weight-bear. At this point time Pt?was admitted by the hospitalist team and orthopedics was consulted.? Refer to consult note for detailed HPI.? We talked about treatment options as far as nonoperative and operative intervention. Recommend Right hip?trochanteric femur?nail.? At this point time patient and would like to pursue surgical intervention for benefits of pain control and earlier mobilization.?? Patient understands the ins and outs of procedure, the risk benefits complication alternatives of surgical nonsurgical treatment options.? Understanding risk of surgery pt?agrees to proceed with surgical intervention all questions answered.? Consent obtained In the preoperative holding area. Procedure: Patient seen evaluated in the preoperative holding area.? Consent was obtained.? Correct extremity was then marked.? Once cleared by anesthesia and the hospitalist team patient was taken back to the operative suite.? Patient underwent anesthesia per the anesthesia department.? Once appropriately anesthetized patient was placed on a fracture [place] table.? Patient was appropriately secured to the bed.? All bony prominences were well-padded.? At this point time patient received appropriate preoperative antibiotics.? Final timeout was performed.? Prior to beginning surgery a standard closed reduction maneuver was placed on the fracture table and large C-arm was brought in.? After performing a closed reduction maneuver. Given this was nondisplaced this was put into appropriate position on fracture table x-rays again confirmed a nondisplaced right hip intertrochanteric femur fracture no subtrochanteric extension. This point time the right lower extremity was then prepped and draped in standard orthopedic fashion. A standard longitudinal incision was made just proximal to the greater?trochanter roughly 4 cm in length sharp scalpel vision was made through skin and subcutaneous tissue.? I then utilized a blunt [place] to split? fascia and mobilized directly down to the greater?trochanter.? I then inserted my starting guidewire which was placed appropriate starting position the tip of the greater?trochanter.? This was advanced in AP and lateral films to be in center center position and advanced to the level lesser?trochanter.? This was confirmed to be in center center position on AP and lateral imaging.? Once this was done I then introduced my opening reamer which was then subsequently guide pin removed.? I selected a 10 mm x 170 mm x 125 degree. At this point time the?nail?was then loaded onto the Sonos gamma?trochanteric?nail?guide.? This was placed within the canal and confirmed with XR and the setscrew was then gently placed not locked.? The?nail?was then impacted to appropriate depth .? At this point time I then inserted my lag screw guide and subsequently made a small incision through skin and subcutaneous tissue splitting the IT band longitudinally and the guide was placed directly onto bone.? Next I then subsequently placed the guidewire in center center position in the head with an appropriate tip to apex distance this was confirmed with multiple orthogonal images.? Once I was satisfied with my planned lag screw placement I then measured which was?100?mm.? I then set my cannulated drill and subsequently reamed this into the head at appropriate depth.? I then had my rep open the 10.5 mm x 100 mm lag screw which was then opened on the back table and subsequently screwed into place over my cannulated drill guide.? This was placed with excellent tip to apex distance.? Next I then utilized the compressing device and subsequently compressed my fracture after I let off traction.? This had e xcellent fracture compression and opposition and closing down to my fracture line.? Next I then locked the?nail?by locking my setscrew.? This point time the guidewire as well as the sleeve was then removed.? Next I plan for statically locking the?nail?distally.? This triple sleeve was then placed a small stab incision was made blunt dissection directly down to bone and the guide sleeve was placed and locked directly onto the bone.? I then inserted the drill bit and subsequently drilled bicortically measured appropriate length screw and then placed a 37.5?mm distal interlocking screw and had excellent fixation was appropriate length.? This point time is completed my construct I remove the outer jig and took final images of AP and lateral of the right intertrochanteric femur fracture which showed stable anatomic alignment and stable fixation. Incision was then thoroughly irrigated.? Hemostasis was maintained with electrocautery.? I then once again thoroughly irrigated the incisions and then subsequently closed in layered fashion of 0 Vicryl 2-0 Vicryl and jarrell.? Silverlon dressings applied.? Patient was then awakened from anesthesia transported onto the hospital bed and taken to PACU in stable condition.? Patient tolerated procedure without complications. Disposition: Patient taken to PACU in stable condition.? Postoperatively,? Patient to receive appropriate discharge instructions as well as pain medication DVT prophylaxis postoperatively.? Patient?will be allowed weightbearing as tolerated right lower extremity.? Will receive appropriate postoperative antibiotics, PT/OT.? Patient to follow-up in the orthopedic office in 2 weeks.? Patients family understands and agrees with current plan.? All questions answered.
--- NOTE | 2024-08-18 16:28 | XRR_ITS ---
PROCEDURE INFORMATION: Exam: XR Right Hip Exam date and time: 08/18/2024 4:41 PM Age: 69 years old Clinical indication: Device placement; Other: Right hip troch nail; Prior surgery; Surgery date: Post-operative (0-2 days); Additional info: Right hip troch nail, ap pelvis, ap hip and cross table lateral (include bottom of TECHNIQUE: Imaging protocol: Radiologic exam of the right hip. Views: 1 view hip with pelvis when performed. COMPARISON: MR hip RT wo con* [id number] 08/17/2024 5:29 PM FINDINGS: Bones/joints: Status post right femoral intramedullary nail placement. Hardware appears intact without complication. Anatomic alignment of the hip with no dislocation. No new fracture. Soft tissues: Skin closure jarrell along the lateral aspect of the right hip. XR/XR hip RT 2-3V wo/w pel* [id number] IMPRESSION: Right femoral intramedullary nail placement without apparent complication.
--- NOTE | 2024-08-18 16:51 | PM.PACU ---
PACU note Narrative: Patient is a 69-year-old male just underwent a right hip ORIF. Pt transferred to PACU in stable condition. Dressing is dry. pt is awake and alert. pt can wiggle toes and plantarflex and dorsiflex foot. pt able to perform straight leg raise, Femoral nerve intact. Distal pulses are palpable toes are warm and well-perfused. Cap refill is normal and under 2 seconds. Sensation to foot is intact. Pain is controlled. Exam: awake Disposition: back to floor
--- NOTE | 2024-08-18 17:13 | ANE.PACU2 ---
Inpatient post-anesthesia follow up: Airway intact: Yes Vital signs: Temperature 97.7 F Pulse Rate 80 Respiratory Rate 18 Blood Pressure 135/76 Pulse Oximetry 91 Oxygen Delivery Me thod Nasal Cannula Oxygen Flow Rate 3 Fraction of Inspir ed Oxygen Hydration adequate: Yes Nausea and vomiting: No Pain level: 2 Mental status: Baseline
[2024-08-18 17:45] LABS: Glucose Point of Care 138 mg/dL (70-110)
[2024-08-18] MEDS: chlorhexidine gluconate 0.12% Btl 473 mL 30 ML MUCOUS MEM ×2 (17:45→21:18)
[2024-08-18] MEDS: mupirocin oint 22 gm 1 APPLIC NASAL (17:45)
[2024-08-18] MEDS: TRAMadol 50 mg Tablet PO (17:45)
[2024-08-18] MEDS: iron polysaccharide complex 150 mg Capsule PO (17:46)
[2024-08-18] MEDS: calcium carb-vit d 600mg/400unit 1 Tablet 1 EACH PO (17:46)
[2024-08-18] MEDS: oxyCODONE 5 mg IR Tab/Cap PO (19:56)
[2024-08-18 20:47] LABS: Glucose Point of Care 224 mg/dL (70-110)
[2024-08-18] MEDS: trazodone 100 mg Tablet PO (21:19)
[2024-08-18] MEDS: ceFAZolin 2,000 MG in sodium chloride 0.9% (plus) 50 ML 100 MG IV (22:31)
[2024-08-19] VITALS (11 sets, daily range): BP systolic 106–160; BP diastolic 58–89; PULSE 68–83; RESP 16–19; TEMP 36.4–36.8; O2SAT 90–96
[2024-08-19] MEDS: lactated ringers 1,000 ML 100 ML IV (02:40)
[2024-08-19] MEDS: enoxaparin 30 mg/0.3 mL Syringe SUBCUT (04:18)
[2024-08-19] MEDS: oxyCODONE 5 mg IR Tab/Cap PO ×3 (05:33→17:17)
[2024-08-19 06:06] LABS: Basophils % 0.4 %; Eosinophils % 0.1 %; Hematocrit 49.8 % (37-53); Lymphocytes # 0.7 10^3/uL (0.8-4.8); Lymphocytes % 10.1 %; Mean Corpuscular HGB Conc 31.3 g/dL (30-55); Mean Corpuscular Hemoglobin 27.7 pg (27-33); Mean Corpuscular Volume 88.3 fl (82-101); Mean Platelet Volume 11.4 fL (7.4-10.4); Monocytes # 0.6 10^3/uL (0.2-0.9); Monocytes % 9.5 %; Neutrophils # 5.34 10^3/uL (1.8-7.7); Neutrophils % 79.2 %; Nucleated Red Blood Cells % 0 %; Platelet Count 160 10^3/cmm (157-399); Red Blood Count 5.64 10^6/uL (3.85-5.65); Red Cell Distribution Width 13.2 % (12.1-15.1); White Blood Count 6.75 10^3/uL (3.29-11.43)
[2024-08-19 06:21] LABS: Glucose Point of Care 193 mg/dL (70-110)
[2024-08-19] MEDS: ceFAZolin 2,000 MG in sodium chloride 0.9% (plus) 50 ML 100 MG IV ×2 (06:21→15:21)
[2024-08-19] MEDS: levothyroxine 100 mcg Tablet PO (06:21)
[2024-08-19 06:26] LABS: Alanine Aminotransferase 16 U/L (0-41); Albumin Level 3.1 g/dL (3.5-5.2); Alkaline Phosphatase 45 U/L (40-130); Anion Gap 11.6 (5-19); Aspartate Amino Transferase 15 U/L (0-40); Blood Urea Nitrogen 27 mg/dL (8-23); Calcium 8.4 mg/dL (8.5-10.5); Carbon Dioxide 31 mmol/L (22-29); Chloride 100 mmol/L (98-107); Creatinine Clr Calc Pharmacy 95.2972; Globulin 2.6 g/dL (1.3-4.6); Glomerular Filtration Rate 111.5 mL/min (90-130); Glucose 205 mg/dL (65-115); Magnesium 1.8 mg/dL (1.7-2.3); Osmolality Calculated 297 mOsm/kg (285-295); Potassium 4.6 mmol/L (3.5-5.1); Sodium 138 mmol/L (136-145); Total Bilirubin 0.5 mg/dL (0.15-1.2); Total Protein 5.7 g/dL (6.6-8.7)
[2024-08-19] MEDS: insulin lispro 100 unit/1 mL SUBCUT ×4 (08:06→20:56)
[2024-08-19] MEDS: pioglitazone 30 mg Tablet PO (08:06)
[2024-08-19] MEDS: TRAMadol 50 mg Tablet PO ×2 (08:06→12:24)
[2024-08-19] MEDS: metoprolol tartrate 50 mg Tablet PO ×2 (08:07→17:17)
[2024-08-19] MEDS: iron polysaccharide complex 150 mg Capsule PO ×2 (08:07→17:18)
[2024-08-19] MEDS: famotidine 20 mg Tablet PO ×2 (08:07→17:17)
[2024-08-19] MEDS: calcium carb-vit d 600mg/400unit 1 Tablet 1 EACH PO ×2 (08:07→17:18)
[2024-08-19] MEDS: mupirocin oint 22 gm 1 APPLIC NASAL ×2 (08:07→17:18)
[2024-08-19] MEDS: tamsulosin 0.4 mg Capsule PO (08:07)
[2024-08-19] MEDS: fluoxetine 20 mg Capsule 40 MG PO (08:07)
[2024-08-19] MEDS: docusate sodium 100 mg Capsule PO ×2 (08:07→17:18)
[2024-08-19] MEDS: multivitamin therapeutic Tablet 1 TAB PO (08:07)
[2024-08-19] MEDS: chlorhexidine gluconate 0.12% Btl 473 mL 30 ML MUCOUS MEM ×4 (08:07→20:56)
[2024-08-19 11:08] LABS: Glucose Point of Care 228 mg/dL (70-110)
--- NOTE | 2024-08-19 11:53 | PM.PN ---
Subjective Subjective: Seen this morning. Patient is status post right hip surgery with intertrochanteric nail. Recently work with physical therapy Complaining of pain in right hip. I discussed with him to use as needed IV morphine as he already has oxycodone IR at this time. Vitals/I&O/Wt Last Vital Signs Temp 97.7 F 08/19/24 11:13 Pulse 80 08/19/24 11:13 Resp 18 08/19/24 11:15 BP 135/76 08/19/24 11:13 Pulse Ox 91 08/19/24 11:13 O2 Del Method Nasal Cannula 08/19/24 11:13 O2 Flow Rate 3 08/18/24 18:54 08/18/24 08/19/24 08/19/24 22:59 06:59 14:59 Intake Total 2180 / 3506.667 1468.333 / 4975.000 240 / 240 Output Total 675 / 1075 900 / 1975 Balance 1505 / 2431.667 568.333 / 3000.000 240 / 240 Weight last 48 hrs Weight 93.44 kg Weight 93.44 kg Weight 93.44 kg Weight 93.44 kg Physical Exam Narrative: General well-developed well-nourished male in no apparent distress Neck no carotid bruits CV regular rate and rhythm Lungs clear to auscultation bilaterally Abdomen positive bowel sounds soft nontender Calves no tenderness cords pretrip well edema Extremities: Right hip incision intact, no evidence of bleeding, appropriately tender to palpation as patient is postop. Data 08/19/24 05:04 08/19/24 05:04 A&P Assessment and plan (1) Intertrochanteric fracture of right femur: Patient is pretty stoic showing minimal signs of pain. Surgery planned the morning with Dr. Ingram (2) GERD (gastroesophageal reflux disease): Stable continue pantoprazole (3) Sleep apnea: Monitor for worsening sleeping disorder with pain meds. Consider using home CPAP settings or machine here (4) Hypothyroidism: TSH today 4.09 and in April was 4.64. Consider increasing levothyroxine to 112 mcg or 125 mcg/day from 100 on discharge (5) Diabetes: Sliding scale insulin and 1800-calorie ADA diet (6) Hypertension: Stable continue home blood pressure meds (7) COPD (chronic obstructive pulmonary disease): Stable will initiate inhalers as needed Plan 08/19/2024 Patient is postop day 1 from right intertrochanteric nail. PT OT Await PT assessment. Patient agreeable to go to rehab if needed Continue empiric cefazolin Will need DVT prophylaxis for 30 days at time of discharge. Pain management Continue metoprolol to tartrate Insulin sliding scale moderate dose intensity Hold glipizide, hold W fluids and, hold Mounjaro Continue trazodone 100 daily Continue levothyroxine PDMP PDMP Reviewed: Not Reviewed Attestations Medical Necessity Statement*: Postop care hip fracture Diagnoses Intertrochanteric fracture of right femur S72.141A GERD (gastroesophageal reflux disease) K21.9 Sleep apnea G47.30 Other specified hypothyroidism E03.8 Hypothyroidism type: other Type 2 diabetes mellitus without complication, without long-term current use of insulin E11.9 Diabetes mellitus type: type 2 Diabetes mellitus superintendent terminal insulin use: without superintendent terminal use Diabetes mellitus complication status: without complication Hypertension, unspecified type I10 Hypertension type: unspecified COPD (chronic obstructive pulmonary disease) J44.9
--- NOTE | 2024-08-19 16:10 | P.PN_ITS ---
Subjective 2 Subjective: Patient seen and examined today having normal postoperative pain. Getting up and working with therapy. Pain controlled medications. Vitals/I&O/Wt Last Vital Signs Temp 98.1 F 08/19/24 15:49 Pulse 79 08/19/24 15:49 Resp 19 H 08/19/24 15:49 BP 160/77 08/19/24 15:49 Pulse Ox 95 08/19/24 15:49 O2 Del Method Nasal Cannula 08/19/24 15:49 O2 Flow Rate 3 08/18/24 18:54 08/19/24 08/19/24 08/19/24 06:59 14:59 22:59 Intake Total 1468.333 / 4975.000 480 / 480 1050 / 1530 Output Total 900 / 1975 Balance 568.333 / 3000.000 480 / 480 1050 / 1530 Weight last 48 hrs Weight 206 lb Weight 206 lb Weight 206 lb Physical Exam 2 Const: COMMON NORMALS: no acute distress and alert Resp: COMMON NORMALS: normal respiratory effort and No retractions Cardio: COMMON NORMALS: Peripheral pulses 2+ throughout PERIPHERAL PULSES: Peripheral pulses 2+ throughout Extremity: NARRATIVE EXTREMITY EXAM: (Right) lower extremity-leg is no appre ciable clinical deformity. Negative logroll examination. Tenderness palpation of the right hip. Patient is able to wiggle toes, plantarflex and dorsiflex ankle. Normal postoperative swelling about the right hip dressings on in place clean dry and intact. compartments are soft and compressible. Sensation intact light touch distally. Toes are warm and well-perfused. Pedal pulse 2+. Neuro: SENSORIUM/ORIENTATION: Yes alert Skin: GENERAL SKIN EXAM: dry skin Data 08/20/24 04:37 08/20/24 04:37 Other Labs: AM labs 08/19/2024 : WBC 6.75, hemoglobin 15.60 creatinine 0.7 Xray Ortho: Radiologist's impression: Ordering Provider/Ordering MD: Nash Ingram Date of Service: 08/18/24 Procedure(s): XR hip RT 2-3V wo/w pel* [id number] Accession Number(s): [id number] Report Number: [id number] PROCEDURE INFORMATION: Exam: XR Right Hip Exam date and time: 08/18/2024 4:41 PM Age: 69 years old Clinical indication: Device placement; Other: Right hip troch nail; Prior surgery; Surgery date: Post-operative (0-2 days); Additional info: Right hip troch nail, ap pelvis, ap hip and cross table lateral (include bottom of TECHNIQUE: Imaging protocol: Radiologic exam of the right hip. Views: 1 view hip with pelvis when performed. COMPARISON: MR hip RT wo con* [id number] 08/17/2024 5:29 PM FINDINGS: Bones/joints: Status post right femoral intramedullary nail placement. Hardware appears intact without complication. Anatomic alignment of the hip with no dislocation. No new fracture. Soft tissues: Skin closure jarrell along the lateral aspect of the right hip. XR/XR hip RT 2-3V wo/w pel* [id number] IMPRESSION: Right femoral intramedullary nail placement without apparent complication. A&P Assessment and plan (1) Closed intertrochanteric fracture of right hip: Plan Internal medicine on board as primary Weight-bear as tolerated right lower extremity X-rays reviewed Resume diet Complete postoperative antibiotic Ice as needed for pain and swelling Dressing change as needed PT/OT Encourage right lower extremity joints range of motion as tolerated DVT prophylaxis Antinausea medication as needed Pain control Orthopedics will continue to follow PDMP PDMP Reviewed: Not Reviewed Attestations 2 Medical Necessity Statement*: Ongoing care status post right hip intertrochanteric femur fracture Coding Level of Care Code Acute Code for Chg Fwd Diagnoses Closed intertrochanteric fracture of right hip S72.141A
[2024-08-19 16:33] LABS: Glucose Point of Care 183 mg/dL (70-110)
[2024-08-19] MEDS: morphine 4 mg/mL SDV 1 mL 2 MG IVP (20:22)
[2024-08-19 20:50] LABS: Glucose Point of Care 182 mg/dL (70-110)
[2024-08-19] MEDS: trazodone 100 mg Tablet PO (20:56)
[2024-08-20 03:26] VITALS: BP 143/76; PULSE 79; RESP 17; TEMP 36.7; O2SAT 97
[2024-08-20] MEDS: enoxaparin 30 mg/0.3 mL Syringe SUBCUT (05:00)
[2024-08-20 06:02] LABS: Basophils % 0.5 %; Eosinophils # 0.2 10^3/uL (0.0-0.8); Eosinophils % 2.4 %; Hematocrit 51.1 % (37-53); Lymphocytes # 0.9 10^3/uL (0.8-4.8); Lymphocytes % 13.4 %; Mean Corpuscular HGB Conc 32.3 g/dL (30-55); Mean Corpuscular Hemoglobin 28.6 pg (27-33); Mean Corpuscular Volume 88.6 fl (82-101); Mean Platelet Volume 11.2 fL (7.4-10.4); Monocytes # 0.6 10^3/uL (0.2-0.9); Monocytes % 9.6 %; Neutrophils % 73.5 %; Nucleated Red Blood Cells % 0 %; Platelet Count 158 10^3/cmm (157-399); Red Blood Count 5.77 10^6/uL (3.85-5.65); Red Cell Distribution Width 13.2 % (12.1-15.1); White Blood Count 6.66 10^3/uL (3.29-11.43)
[2024-08-20 06:17] VITALS: RESP 16; O2SAT 3
[2024-08-20 06:17] LABS: Glucose Point of Care 173 mg/dL (70-110)
[2024-08-20] MEDS: levothyroxine 100 mcg Tablet PO (06:17)
[2024-08-20] MEDS: oxyCODONE 5 mg IR Tab/Cap PO (06:17)
[2024-08-20 06:24] LABS: Alanine Aminotransferase 13 U/L (0-41); Albumin Level 3.5 g/dL (3.5-5.2); Alkaline Phosphatase 57 U/L (40-130); Aspartate Amino Transferase 18 U/L (0-40); Blood Urea Nitrogen 22 mg/dL (8-23); Calcium 8.9 mg/dL (8.5-10.5); Carbon Dioxide 36 mmol/L (22-29); Chloride 95 mmol/L (98-107); Creatinine Clr Calc Pharmacy 97.5465; Glomerular Filtration Rate 111.5 mL/min (90-130); Glucose 178 mg/dL (65-115); Magnesium 1.5 mg/dL (1.7-2.3); Osmolality Calculated 294 mOsm/kg (285-295); Sodium 138 mmol/L (136-145); Total Bilirubin 0.7 mg/dL (0.15-1.2); Total Protein 6.5 g/dL (6.6-8.7)
[2024-08-20] MEDS: insulin lispro 100 unit/1 mL SUBCUT ×2 (07:50→11:43)
[2024-08-20] MEDS: famotidine 20 mg Tablet PO (07:51)
[2024-08-20] MEDS: fluoxetine 20 mg Capsule 40 MG PO (07:51)
[2024-08-20] MEDS: pioglitazone 30 mg Tablet PO (07:51)
[2024-08-20] MEDS: metformin XR 500 MG Tablet PO (07:51)
[2024-08-20] MEDS: docusate sodium 100 mg Capsule PO (07:51)
[2024-08-20] MEDS: tamsulosin 0.4 mg Capsule PO (07:51)
[2024-08-20] MEDS: metoprolol tartrate 50 mg Tablet PO (07:52)
[2024-08-20] MEDS: chlorhexidine gluconate 0.12% Btl 473 mL 30 ML MUCOUS MEM ×2 (07:52→11:43)
[2024-08-20] MEDS: iron polysaccharide complex 150 mg Capsule PO (07:52)
[2024-08-20] MEDS: mupirocin oint 22 gm 1 APPLIC NASAL (07:52)
[2024-08-20] MEDS: calcium carb-vit d 600mg/400unit 1 Tablet 1 EACH PO (07:52)
[2024-08-20] MEDS: multivitamin therapeutic Tablet 1 TAB PO (07:52)
[2024-08-20 07:57] VITALS: BP 151/71; PULSE 77; RESP 17; TEMP 36.8; O2SAT 97
[2024-08-20 08:14] VITALS: PULSE 77; O2SAT 95
--- NOTE | 2024-08-20 10:00 | PM.DCS ---
Discharge Providers Date of Admission: 08/17/24 20:37 Date of Discharge: August 20, 2024 Attending Provider at Admission: Bryan Clark MD Attending Provider at Discharge: Milena Peralta MD Primary Care Provider: ALEIDA Bejarano Diagnoses at Discharge Discharge Diagnosis (1) Intertrochanteric fracture of right femur: Status: Acute (2) GERD (gastroesophageal reflux disease): Status: Acute (3) Sleep apnea: Status: Acute (4) Hypothyroidism: Status: Acute Qualifiers: Hypothyroidism type: other Qualified Code(s): E03.8 - Other specified hypothyroidism (5) Diabetes: Status: Chronic Qualifiers: Diabetes mellitus complication status: without complication Diabetes mellitus terminal supervisor insulin use: without terminal supervisor use Diabetes mellitus type: type 2 Qualified Code(s): E11.9 - Type 2 diabetes mellitus without complications (6) Hypertension: Status: Chronic Qualifiers: Hypertension type: unspecified Qualified Code(s): I10 - Essential (primary) hypertension (7) COPD (chronic obstructive pulmonary disease): Status: Chronic Reason for Visit Reason for Visit: fall Hospital Course Hospital Course Patient presented to the hospital with a mechanical fall landing on his right elbow and hip. Patient suffered a femur fracture. MRI was done and subsequently patient taken to surgery and intertrochanteric nail placed. Patient was discharged to nursing facility for rehab. 30 days of DVT prophylaxis was given. Patient did become very sleepy with oxycodone therefore he was switched to tramadol. Physical Exam Narrative: General well-developed well-nourished male in no apparent distress Neck no carotid bruits CV regular rate and rhythm Lungs clear to auscultation bilaterally Abdomen positive bowel sounds soft nontender Calves no tenderness cords pretrip well edema Extremities: Right hip incision intact, no evidence of bleeding, appropriately tender to palpation as patient is postop. Discharge Data Studies Completed and Pending Completed Studies During Hospitalization Category Date Time Status CT pelvis wo con [id number] Stat Cat Scan 08/17/24 14:44 Completed XR elbow RT min 3V* [id number] Stat Exams 08/17/24 13:47 Completed XR hip RT 2-3V wo/w pel* [id number] Routine Exams 08/18/24 16:28 Completed XR hip RT 2-3V wo/w pel* [id number] Stat Exams 08/17/24 13:47 Completed XR wrist RT min 3V* [id number] Stat Exams 08/17/24 13:47 Completed MR hip RT wo con* [id number] Stat MRI 08/17/24 16:38 Completed Pending at discharge Category Date Time Status Basic Metabolic Panel AM LABS Lab 08/21/24 04:00 Ordered SARS Covid-2 Antigen Routine Lab 08/20/24 09:18 Received Radiology Impressions Elbow X-Ray 08/17/24 13:47 IMPRESSION: No acute findings. Wrist X-Ray 08/17/24 13:47 IMPRESSION: No acute findings. Pelvis CT 08/17/24 14:44 IMPRESSION: Acute nondisplaced fracture involving the right greater trochanter. The fracture does not appear to involve the femoral neck Hip MRI 08/17/24 16:38 IMPRESSION: 1. There is a hairline crack/nondisplaced fracture in the right proximal femur along the intertrochanteric region. This is occult on CT but on MRI does suggest this is a surgical fracture. Advise orthopedic consult. 2. Nondisplaced fracture of the right greater trochanter. 3. Right hip edema with very small effusion. Suspect partial tear along the right distal greater trochanteric gluteal insertion tendon. Hip/Pelvis X-Ray 08/18/24 16:28 IMPRESSION: Right femoral intramedullary nail placement without apparent complication. Laboratory Results WBC 6.66 10^3/uL (3.29-11.43) 08/20/24 04:37 RBC 5.77 10^6/uL (3.85-5.65) H 08/20/24 04:37 Hgb 16.50 g/dL (11.27-16.99) 08/20/24 04:37 Hct 51.1 % (37-53) 08/20/24 04:37 MCV 88.6 fl (82-101) 08/20/24 04:37 MCH 28.6 pg (27-33) 08/20/24 04:37 MCHC 32.3 g/dL (30-55) 08/20/24 04:37 RDW 13.2 % (12.1-15.1) 08/20/24 04:37 Plt Count 158 10^3/cmm (157-399) 08/20/24 04:37 MPV 11.2 fL (7.4-10.4) H 08/20/24 04:37 Neut % (Auto) 73.5 % 08/20/24 04:37 Lymph % (Auto) 13.4 % 08/20/24 04:37 [place] % (Auto) 9.6 % 08/20/24 04:37 Eos % (Auto) 2.4 % 08/20/24 04:37 Baso % (Auto) 0.5 % 08/20/24 04:37 Neut # (Auto) 4.90 10^3/uL (1.8-7.7) 08/20/24 04:37 Lymph # (Auto) 0.9 10^3/uL (0.8-4.8) 08/20/24 04:37 [place] # (Auto) 0.6 10^3/uL (0.2-0.9) 08/20/24 04:37 Eos # (Auto) 0.2 10^3/uL (0.0-0.8) 08/20/24 04:37 Baso # (Auto) 0.0 10^3/uL (0.0-0.1) 08/20/24 04:37 Nucleated RBC % (auto) 0 % 08/20/24 04:37 Nucleated RBCs # 0.0 /100WBC 08/20/24 04:37 PT 14.80 SECONDS (12.1-14.9) 08/17/24 22:07 INR 1.08 (0.8-1.2) 08/17/24 22:07 APTT 29.3 SECONDS (23.9-36.7) 08/17/24 22:07 Sodium 138 mmol/L (136-145) 08/20/24 04:37 Potassium 5.0 mmol/L (3.5-5.1) 08/20/24 04:37 Chloride 95 mmol/L (98-107) L 08/20/24 04:37 Carbon Dioxide 36 mmol/L (22-29) H 08/20/24 04:37 Anion Gap 12.0 (5-19) 08/20/24 04:37 BUN 22 mg/dL (8-23) 08/20/24 04:37 Creatinine 0.7 mg/dL (0.7-1.2) 08/20/24 04:37 GFR Calculation 111.5 mL/min (90-130) 08/20/24 04:37 Glucose 178 mg/dL (65-115) H 08/20/24 04:37 POC Glucose 173 mg/dL (70-110) H 08/20/24 06:15 Calculated Osmolality 294 mOsm/kg (285-295) 08/20/24 04:37 Calcium 8.9 mg/dL (8.5-10.5) 08/20/24 04:37 Magnesium 1.5 mg/dL (1.7-2.3) L 08/20/24 04:37 Total Bilirubin 0.7 mg/dL (0.15-1.2) 08/20/24 04:37 AST 18 U/L (0-40) 08/20/24 04:37 ALT 13 U/L (0-41) 08/20/24 04:37 Alkaline Phosphatase 57 U/L (40-130) 08/20/24 04:37 Total Protein 6.5 g/dL (6.6-8.7) L 08/20/24 04:37 Albumin 3.5 g/dL (3.5-5.2) 08/20/24 04:37 Globulin 3.0 g/dL (1.3-4.6) 08/20/24 04:37 TSH 4.09 uIU/mL (0.27-4.20) 08/17/24 22:07 Blood Type A Positive 08/17/24 20:36 Rho(D) Type Rh positive 08/17/24 20:36 Antibody Screen Negative 08/17/24 20:36 Vitals Last Vital Signs Temp 98.2 F 08/20/24 07:57 Pulse 77 08/20/24 08:14 Resp 17 08/20/24 07:57 BP 151/71 08/20/24 07:57 Pulse Ox 95 08/20/24 08:14 O2 Del Method Nasal Cannula 08/20/24 08:14 O2 Flow Rate 3 08/20/24 08:14 Discharge Plan Discharge Patient Disposition: Xfer SNF Condition: Stable Prescriptions: New ondansetron 4 mg tablet,disintegrating 4 mg PO Q8H PRN (Reason: nausea and vomiting) 3 Days Qty: 9 0RF enoxaparin 30 mg/0.3 mL syringe 30 mg SUBCUT DAILY 35 Days Qty: 10.5 0RF multivitamin with folic acid [Thera] 400 mcg Tablet 1 tab PO DAILY Qty: 30 0RF polysaccharide iron complex [Ferrex 150] 150 mg iron Capsule 150 mg PO BIDWM Qty: 30 0RF docusate sodium 100 mg Capsule 100 mg PO BID PRN (Reason: constipation) Qty: 14 0RF calcium carbonate-vitamin D3 600 mg-10 mcg (400 unit) Tablet 1 tab PO BID Qty: 30 0RF Continued pioglitazone 30 mg tablet See Rx Instructions .ROUTE .COMPLEX Qty: 90 1RF Dose Instruction: TAKE ONE TABLET BY MOUTH DAILY Rx Instructions: TAKE ONE TABLET BY MOUTH DAILY trazodone 100 mg tablet See Rx Instructions .ROUTE .COMPLEX Qty: 90 1RF Dose Instruction: TAKE ONE TABLET BY MOUTH DAILY Rx Instructions: TAKE ONE TABLET BY MOUTH AT BEDTIME. omeprazole 20 mg tablet,delayed release (DR/EC) 20 mg PO DAILY PRN (Reason: Acid Reflux) Qty: 90 1RF levothyroxine 100 mcg tablet 100 mcg PO DAILY Qty: 90 1RF metoprolol tartrate 50 mg tablet See Rx Instructions .ROUTE .COMPLEX Qty: 180 1RF Dose Instruction: TAKE ONE TABLET BY MOUTH TWICE DAILY. Rx Instructions: TAKE ONE TABLET BY MOUTH TWICE DAILY. tamsulosin 0.4 mg capsule 0.4 mg PO DAILY Qty: 90 1RF fluoxetine 40 mg capsule 40 mg PO BID Qty: 180 1RF Rx Instructions: administer in the morning and at noon/midday (DME) blood-glucose meter [Blood Glucose Monitoring] Kit See Rx Instructions miscellaneous .MEDSUPPLY Qty: 1 0RF Rx Instructions: As directed; to test one x daily (DME) lancets 31 gauge misc See Rx Instructions miscellaneous .MEDSUPPLY Qty: 100 3RF Rx Instructions: As directed; to test one x daily (DME) Blood Glucose Test Strip See Rx Instructions miscellaneous .MEDSUPPLY Qty: 100 2RF Rx Instructions: As directed; to test one x daily (DME) free style peter See Rx Instructions .Route .MEDSUPPLY Qty: 1 0RF Rx Instructions: As directed dapagliflozin propanediol [Farxiga] 10 mg tablet See Rx Instructions .ROUTE .COMPLEX Qty: 90 0RF Dose Instruction: TAKE ONE TABLET BY MOUTH DAILY Rx Instructions: TAKE ONE TABLET BY MOUTH DAILY Mounjaro 2.5 mg/0.5 mL pen injector 2.5 mg SUBCUT Q7D Rx Instructions: Sunday tramadol 50 mg tablet 50 mg PO Q6H PRN (Reason: Pain) Qty: 15 0RF Discontinued metformin 500 mg tablet extended release 24 hr 500 mg PO BID 90 Days Qty: 180 1RF glipizide 5 mg tablet 5 mg PO BID Qty: 180 1RF diclofenac sodium 75 mg tablet,delayed release (DR/EC) 75 mg PO BID methylprednisolone 4 mg tablets,dose pack See Rx Instructions .ROUTE .COMPLEX Rx Instructions: Take per package instructions. Discharge Orders: Discharge Order (Routine); Ordered 08/20/24 Ordered By: Milena Peralta Referrals: [facility] [Outside] Danette Lawler FNP [Primary Care Provider, Family Practice] - 4-7 days Nash Ingram DO [Physician, Orthopedics] - 09/03/24 2:00 pm Discharge Diet: Diabetic Discharge Activity: Limit activity as instructed and Use walker/crutches as instructed Patient Instructions: Acute Wound Care (DC), ORIF of a Leg Fracture (GEN), Opioid Safety, Post Anesthesia Care Activity Restrictions/Additional Instructions: Orthopedic discharge instructions Patient may weight-bear as tolerated to the operative lower extremity Take DVT prophylaxis (blood thinner) as prescribed ) Take pain medication as prescribed Take antinausea medication as needed Supplement with Citracal vitamin D for bone health and healing Ice as needed for pain and swelling Leave Silverlon bandage dressing on for 7 days after that may remove, rinse incision with warm soapy water/shower pat dry keep clean dry and intact and redress with a clean dry dressing. No baths or soap May supplement for pain with Tylenol [id number] as needed(1000 mg every 8 hours-do not exceed more than 3000mg in 24-hour period) Follow-up in the orthopedic office in 2 weeks from date of surgery Contact the office for any questions or concerns per (fevers, increased drainage or redness around the incision site etc.) Discharge Attestations Time Spent in Discharge Care*: greater than 30 min Quality Metrics Clinical Quality Measures [ No reported AMI, CVA or VTE this stay] Coding Level of Care Code Acute Code for Chg Fwd Diagnoses Intertrochanteric fracture of right femur S72.141A GERD (gastroesophageal reflux disease) K21.9 Sleep apnea G47.30 Other specified hypothyroidism E03.8 Hypothyroidism type: other Type 2 diabetes mellitus without complication, without long-term current use of insulin E11.9 Diabetes mellitus complication status: without complication Diabetes mellitus terminal supervisor insulin use: without terminal supervisor use Diabetes mellitus type: type 2 Hypertension, unspecified type I10 Hypertension type: unspecified COPD (chronic obstructive pulmonary disease) J44.9
--- NOTE | 2024-08-20 10:00 | PC.SOCIAL ---
IMM Update pg 2 of IMM Updated and reviewed w/ patient. Copy provided. Copy dated, initialed and placed in chart.
[2024-08-20 10:15] LABS: SARS Covid-2 Antigen Negative (Negative)
[2024-08-20 11:00] LABS: Glucose Point of Care 309 mg/dL (70-110)
--- NOTE | 2024-08-20 11:29 | PC.NURSE ---
This nurse called report to VERONICA Gary at [facility] at 1128am. Their transport should be here around 1230 to pick pt up.
[2024-08-20] MEDS: TRAMadol 50 mg Tablet PO (11:43)
[2024-08-20 12:10] VITALS: BP 177/93; PULSE 89; RESP 18; TEMP 36.4; O2SAT 90
--- NOTE | 2024-08-20 12:13 | P.PN_ITS ---
Subjective 2 Subjective: Patient seen and examined prior to discharge planning on discharge to rehab facility today he has been mobilizing with therapy. Pain controlled with medications. Stable from Ortho standpoint. Vitals/I&O/Wt Last Vital Signs Temp 98.2 F 08/20/24 07:57 Pulse 77 08/20/24 08:14 Resp 17 08/20/24 07:57 BP 151/71 08/20/24 07:57 Pulse Ox 95 08/20/24 08:14 O2 Del Method Nasal Cannula 08/20/24 08:14 O2 Flow Rate 3 08/20/24 08:14 08/19/24 08/20/24 08/20/24 22:59 06:59 14:59 Intake Total 1529 480 / 480 Output Total 300 / 300 200 / 500 200 / 200 Balance 1230 / 1710 -200 / 1510 280 / 280 Weight last 48 hrs Weight 216 lb 3.2 oz Weight 206 lb Physical Exam 2 Const: COMMON NORMALS: no acute distress and alert Resp: COMMON NORMALS: normal respiratory effort and No retractions Cardio: COMMON NORMALS: Peripheral pulses 2+ throughout PERIPHERAL PULSES: Peripheral pulses 2+ throughout Extremity: NARRATIVE EXTREMITY EXAM: (Right) lower extremity-leg is no appre ciable clinical deformity. Negative logroll examination. Tenderness palpation of the right hip. Patient is able to wiggle toes, plantarflex and dorsiflex ankle. Normal postoperative swelling about the right hip dressings on in place clean dry and intact. compartments are soft and compressible. Sensation intact light touch distally. Toes are warm and well-perfused. Pedal pulse 2+. Neuro: SENSORIUM/ORIENTATION: Yes alert Skin: GENERAL SKIN EXAM: dry skin Data 08/20/24 04:37 08/20/24 04:37 A&P Assessment and plan (1) Closed intertrochanteric fracture of right hip: Plan Internal medicine on board as primary Weight-bear as tolerated right lower extremity X-rays reviewed Resume diet Complete postoperative antibiotic Ice as needed for pain and swelling Dressing change as needed PT/OT Encourage right lower extremity joints range of motion as tolerated DVT prophylaxis Antinausea medication as needed Pain control Patient stable for discharge from orthopedic standpoint. Orthopedic surgery team will sign off patient at this time follow peripherally, if there is any question pertaining patient's care for free to contact orthopedics on-call appropriate discharge instructions and medications are in patient's chart patient will need DVT prophylaxis postoperatively him postoperative pain medication. Patient will follow-up with orthopedic office in 2 weeks. Patient understand agree with current plan. Questions answered. PDMP PDMP Reviewed: Not Reviewed Attestations 2 Medical Necessity Statement*: Ongoing care status post right hip trochanteric femur nail Coding Level of Care Code Acute Code for Chg Fwd Diagnoses Closed intertrochanteric fracture of right hip S72.141A Time Spent (min) 15
[2024-08-20 13:41] VITALS: BP 160/92; PULSE 86; O2SAT 92
== END 2024-08-20 13:42 | disposition skilled nursing facility (03) | DRG 482 ==
LOC: ER 20:48 → MEDSURG 21:15
PROVIDERS: Student in an Organized Health Care Education/Training Program; Admitting Provider Internal Medicine; Emergency Provider Emergency Medicine; Family Provider Nurse Practitioner Family; PCP Nurse Practitioner Family; Visit Provider Internal Medicine
PROC: (CPT 27245; principal; 2024-08-18 17:00)
DX: S72.141A Displaced intertrochanteric fracture of right femur, initial encounter for closed fracture (principal); K21.9 Gastro-esophageal reflux disease without esophagitis; G47.30 Sleep apnea, unspecified; E03.9 Hypothyroidism, unspecified; E11.9 Type 2 diabetes mellitus without complications; I10 Essential (primary) hypertension; J44.9 Chronic obstructive pulmonary disease, unspecified; Z87.891 Personal history of nicotine dependence; Z79.84 Long term (current) use of oral hypoglycemic drugs; W01.0XXA Fall on same level from slipping, tripping and stumbling without subsequent striking against object, initial encounter
CPT/HCPCS: 36415; 36416; 72192; 73080; 73110; 73502; 73721; 76000; 80053; 82962; 83735; 84443; 85025; 85610; 85730; 86850; 86900; 87426; 96372; 96374; 96375; 97110; 97116; 97161; 97167; 97530; 99285; C1713; C1776; J0131; J0690; J1100; J1644; J1650; J1815; J1885; J2270; J2405; J2704; J3010; J3490; J7030; J7120; J9999

== ENCOUNTER → 2024-09-03 13:59 | Outpatient (BNVA) | payer MEDICARE, SELFPAY | PROVIDERS: Family Provider Nurse Practitioner Family; PCP Nurse Practitioner Family; Visit Provider Physician Assistant | DX: S72.141D Displaced intertrochanteric fracture of right femur, subsequent encounter for closed fracture with routine healing (principal); X58.XXXD Exposure to other specified factors, subsequent encounter; Z98.890 Other specified postprocedural states | CPT/HCPCS: 73502; 99024 ==

== ENCOUNTER → 2024-09-12 11:34 | Outpatient (BNVA) | payer MEDICARE, SELFPAY | PROVIDERS: Family Provider Nurse Practitioner Family; PCP Nurse Practitioner Family; Visit Provider Nurse Practitioner Family | DX: I50.30 Unspecified diastolic (congestive) heart failure (principal); E11.9 Type 2 diabetes mellitus without complications | CPT/HCPCS: 80053; 80061; 83036; 84443; 85025 ==

== ENCOUNTER → 2024-09-29 11:10 | Outpatient (BNVA) | payer MEDICARE, SELFPAY | PROVIDERS: Family Provider Nurse Practitioner Family; PCP Nurse Practitioner Family; Visit Provider Nurse Practitioner Family | DX: M19.012 Primary osteoarthritis, left shoulder (principal) | CPT/HCPCS: 73030 ==

== ENCOUNTER → 2024-10-01 14:37 | Outpatient (BNVA) | payer MEDICARE, SELFPAY | PROVIDERS: Family Provider Nurse Practitioner Family; PCP Nurse Practitioner Family; Visit Provider Student in an Organized Health Care Education/Training Program | DX: M19.012 Primary osteoarthritis, left shoulder (principal); M75.42 Impingement syndrome of left shoulder | CPT/HCPCS: 99213 ==

== ENCOUNTER → 2024-10-15 10:50 | Outpatient (BNVA) | payer MEDICARE, SELFPAY | PROVIDERS: Family Provider Nurse Practitioner Family; PCP Nurse Practitioner Family; Visit Provider Physician Assistant | DX: Z98.890 Other specified postprocedural states (principal) | CPT/HCPCS: 73502; 99024 ==